=== PATIENT | male | born 1945 | race Caucasian/White ===

== ENCOUNTER 2016-09-16 13:18 | Emergency (ER) | payer MEDICARE, MEDICAID ==
[~2016-09-16] VITALS: Ht 172.7 cm; Wt 91.0 kg
[~2016-09-16 13:18] MED LIST: ASPI-1158 PO; ATOR20TA65 PO; CLON0.1T PO; COR12 PO; DIPH25CA83 PO; FISH1CAP65 PO; GLIP10TA10 PO; INSLAN SQ; LISI40TA4 PO; OMEP20CA10 PO; TERA5CAP4
[2016-09-16] MEDS ORDERED: IBUPROFEN 600MG TABLET PO ONE (14:45)
[2016-09-16 15:22] LABS: HEMOGLOBIN. 12.5 g/dL (14.0-18.0); MEAN CORPUSCULAR HEMOGLOBIN 33.4 pg (28.0-32.0); MEAN CORPUSCULAR VOLUME 101.5 fL (80.0-94.0); MEAN PLATELET VOLUME 9.1 fl (7.4-10.4); PLATELET 137 x1000/uL (130-400); RED BLOOD CELL COUNT 3.74 mill/uL (4.7-6.1); RED CELL DISTRIBUTION WIDTH 17.5 % (11.6-14.6)
[2016-09-16 15:26] LABS: INR 1.1; PROTHROMBIN TIME 11.6 sec
[2016-09-16 15:34] LABS: CARBON DIOXIDE 34 mEq/L (21-32); CHLORIDE 98 mEq/L (98-107)
[2016-09-16 16:32] VITALS: BP 160/80
[2016-09-16 16:56] LABS: ATYPICAL LYMPHOCYTES 4
[2016-09-16 19:44] LABS: PLATELET ESTIMATE NORMAL
== END 2016-09-16 17:34 | disposition home or self-care (01) ==
LOC: ER 14:28
DX: M25.562 Pain in left knee (principal); I12.0 Hypertensive chronic kidney disease with stage 5 chronic kidney disease or end stage renal disease; E11.22 Type 2 diabetes mellitus with diabetic chronic kidney disease; N18.6 End stage renal disease; E78.00 Pure hypercholesterolemia, unspecified; Z99.2 Dependence on renal dialysis; Z79.82 Long term (current) use of aspirin; Z79.4 Long term (current) use of insulin
CPT/HCPCS: 36415; 73562; 80053; 85025; 85610; 93971; 99285

== ENCOUNTER 2016-10-07 06:36 | Inpatient (IN) | payer MEDICARE, MEDICAID ==
[~2016-10-07] VITALS: Ht 170.2 cm; Wt 86.2 kg
[2016-10-07] MEDS ORDERED: HYDRALAZINE 20MG/ML VIAL IV ONE (07:00)
[2016-10-07] MEDS ORDERED: ALBUTEROL (0.083%) 2.5MG/3ML NEB HHN STA (07:00)
[2016-10-07 07:11] LABS: BASOPHILS % 0.2 % (0.0-2.0); EOSINOPHILS % 0.2 % (0.0-5.0); HEMATOCRIT. 34.4 % (42.0-52.0); HEMOGLOBIN. 11.6 g/dL (14.0-18.0); LYMPHOCYTES % 9.9 % (20.0-50.0); MEAN CORPUSCULAR HEMOGLOBIN 33.5 pg (28.0-32.0); MEAN PLATELET VOLUME 8.8 fl (7.4-10.4); MONOCYTES % 4.6 % (2.0-8.0); NEUTROPHILS % 85.1 % (40.0-76.0); PLATELET 141 x1000/uL (130-400); RED BLOOD CELL COUNT 3.48 mill/uL (4.7-6.1); RED CELL DISTRIBUTION WIDTH 16.2 % (11.6-14.6)
[2016-10-07 07:20] LABS: PARTIAL THROMBOPLASTIN TIME 29.4 sec (24.0-34.0); PROTHROMBIN TIME 10.9 sec
[2016-10-07 07:28] LABS: CARBON DIOXIDE 27 mEq/L (21-32); CHLORIDE 96 mEq/L (98-107); PHOSPHORUS 5.7 mg/dL (2.5-4.9); TROPONIN I 0.03 ng/mL (0.00-0.04)
[2016-10-07] MEDS ORDERED: LEVOFLOXACIN 500MG PREMIX 100 ML IV ONE (07:45)
[2016-10-07] MEDS ORDERED: VANCOMYCIN 1 G PREMIX 200 ML IV SCH (07:45)
[2016-10-07 07:54] LABS: BG BASE EXCESS -1.5 mmol/L (-2.0-2.0); BG CARBOXYHEMOGLOBIN 0.5 % (0.5-1.5); BG DEOXYHEMOGLOBIN 5.2 % (0.0-5.0); BG FRACTION INSPIRED OXYGEN 28; BG HCO3 ACT 25.7 mmol/L (22.0-26.0); BG METHEMOGLOBIN 0.3 % (0.0-1.5); BG OXYGEN SATURATION 94.8 % (92.0-98.5); BG PCO2 54.5 mmHg (35.0-45.0); BG PH 7.292 (7.350-7.450); BG PO2 85.2 mmHg (75.0-100.0); BG SAMPLE SITE RIGHT BRACHIAL; BG TOTAL HEMOGLOBIN 12.6 g/dL (12.0-18.0); BG VENT MODE NASAL CANNULA
[2016-10-07] MEDS ORDERED: ALBUTEROL (0.083%) 2.5MG/3ML NEB ONE (07:56)
[2016-10-07] MEDS ORDERED: CALCIUM CHLORIDE 1GM/10ML SYR IV ONE (08:30)
[2016-10-07] MEDS ORDERED: DEXTROSE 50% WATER 50ML SYRINGE IV ONE (08:30)
[2016-10-07] MEDS ORDERED: SODIUM BICARBONATE 8.4% 1 MEQ/ML 50ML SYR IV ONE (08:30)
[2016-10-07] MEDS ORDERED: INSULIN REGULAR (HUMULIN R) 300UNITS/3ML IV ONE (08:30)
[2016-10-07] MEDS: BLOOD SUGAR DIAGNOSTIC STRIP TEST SCH ×3 (12:40→21:55)
[2016-10-07] MEDS ORDERED: IPRATROPIUM/ALBUTEROL 0.5-3(2.5)MG/3ML NEB HHN PRN (13:30)
[2016-10-07] MEDS: OMEPRAZOLE 20MG CAPSULE EXTENDED RELEASE PO SCH (14:37)
[2016-10-07] MEDS: ASPIRIN 81MG EC TABLET PO SCH (14:37)
[2016-10-07] MEDS: DIPHENHYDRAMINE 25MG CAPSULE PO SCH (14:37)
[2016-10-07] MEDS: CLONIDINE 0.1MG TABLET PO SCH (14:37)
[2016-10-07] MEDS: LISINOPRIL 40MG TABLET PO SCH (14:37)
[2016-10-07] MEDS ORDERED: CEFEPIME 1,000 MG in DEXTROSE 5% WATER 50 ML IV NR (15:00)
[2016-10-07 17:23] VITALS: BP 155/78
[2016-10-07] MEDS: IPRATROPIUM/ALBUTEROL 0.5-3(2.5)MG/3ML NEB HHN SCH ×2 (17:30→19:47)
[2016-10-07 18:10] VITALS: BP 135/71
[2016-10-07] MEDS: GLIPIZIDE 10MG TABLET PO SCH (19:27)
[2016-10-07] MEDS: INSULIN LISPRO 100 UNITS/ML SUBCUT SCH ×2 (19:28→21:00)
[2016-10-07] MEDS ORDERED: ONDANSETRON HCL 4MG/2ML VIAL IV PRN (19:45)
[2016-10-07 20:00] VITALS: BP 155/83
[2016-10-07] MEDS: CARVEDILOL 12.5MG TABLET PO SCH (21:00)
[2016-10-07] MEDS: ATORVASTATIN CALCIUM 20MG TABLET PO SCH (22:35)
[2016-10-08] VITALS: BP 111/48
[2016-10-08] MEDS: BUDESONIDE 0.5MG/2ML NEB HHN SCH ×2 (01:32→12:31)
[2016-10-08] MEDS: IPRATROPIUM/ALBUTEROL 0.5-3(2.5)MG/3ML NEB HHN SCH ×3 (01:33→12:31)
[2016-10-08 04:00] VITALS: BP 113/59
[2016-10-08] MEDS: INSULIN LISPRO 100 UNITS/ML SUBCUT SCH ×4 (06:29→21:49)
[2016-10-08] MEDS: BLOOD SUGAR DIAGNOSTIC STRIP TEST SCH ×4 (06:29→21:49)
[2016-10-08 08:00] VITALS: BP 138/78
[2016-10-08] MEDS: GLIPIZIDE 10MG TABLET PO SCH ×2 (08:54→18:03)
[2016-10-08] MEDS: DIPHENHYDRAMINE 25MG CAPSULE PO SCH (08:54)
[2016-10-08] MEDS: ASPIRIN 81MG EC TABLET PO SCH (08:54)
[2016-10-08] MEDS: OMEPRAZOLE 20MG CAPSULE EXTENDED RELEASE PO SCH (08:54)
[2016-10-08] MEDS: CARVEDILOL 12.5MG TABLET PO SCH ×2 (08:54→21:00)
[2016-10-08] MEDS: CLONIDINE 0.1MG TABLET PO SCH (08:55)
[2016-10-08] MEDS: LISINOPRIL 40MG TABLET PO SCH (08:56)
[2016-10-08 12:00] VITALS: BP 136/76
[2016-10-08 12:36] LABS: T4 FREE 0.96 ng/dL (0.76-1.46)
[2016-10-08] MEDS ORDERED: CEFEPIME 500 MG in DEXTROSE 5% WATER 50 ML IV SCH (15:00)
[2016-10-08 16:00] VITALS: BP 120/61
[2016-10-08 20:00] VITALS: BP 139/65
[2016-10-08] MEDS: ATORVASTATIN CALCIUM 20MG TABLET PO SCH (21:00)
[2016-10-09] VITALS: BP 140/65
[2016-10-09] MEDS: IPRATROPIUM/ALBUTEROL 0.5-3(2.5)MG/3ML NEB HHN SCH ×2 (00:26→09:00)
[2016-10-09 04:00] VITALS: BP 151/77
[2016-10-09] MEDS: INSULIN LISPRO 100 UNITS/ML SUBCUT SCH ×2 (07:32→12:59)
[2016-10-09] MEDS: BLOOD SUGAR DIAGNOSTIC STRIP TEST SCH ×2 (07:32→12:59)
[2016-10-09 08:00] VITALS: BP 145/81
[2016-10-09] MEDS: GLIPIZIDE 10MG TABLET PO SCH (08:26)
[2016-10-09] MEDS: LISINOPRIL 40MG TABLET PO SCH (08:27)
[2016-10-09] MEDS: CARVEDILOL 12.5MG TABLET PO SCH (08:27)
[2016-10-09] MEDS: DIPHENHYDRAMINE 25MG CAPSULE PO SCH (08:27)
[2016-10-09] MEDS: CLONIDINE 0.1MG TABLET PO SCH (08:27)
[2016-10-09] MEDS: ASPIRIN 81MG EC TABLET PO SCH (08:27)
[2016-10-09] MEDS ORDERED: FAMOTIDINE 20MG TABLET PO SCH (09:00)
[2016-10-09 12:00] VITALS: BP 142/80
[2016-10-09 13:48] VITALS: BP 142/80
== END 2016-10-09 14:30 | disposition home or self-care (01) | DRG 871 ==
LOC: ER 06:58 → 7WST 07:59 → EDBEDREQ 08:09 → CANRESERV 10:29 → ENRESERV 10:29
PROVIDERS: ADMIT Internal Medicine Nephrology; ATTEND Internal Medicine Nephrology
PROC: 5A1D60Z (ICD-10-PCS; principal; 2016-10-07)
DX: A41.9 Sepsis, unspecified organism (principal); N18.6 End stage renal disease; J96.00 Acute respiratory failure, unspecified whether with hypoxia or hypercapnia; J18.9 Pneumonia, unspecified organism; I50.33 Acute on chronic diastolic (congestive) heart failure; I13.2 Hypertensive heart and chronic kidney disease with heart failure and with stage 5 chronic kidney disease, or end stage renal disease; J44.0 Chronic obstructive pulmonary disease with (acute) lower respiratory infection; J44.1 Chronic obstructive pulmonary disease with (acute) exacerbation; N17.9 Acute kidney failure, unspecified; I73.9 Peripheral vascular disease, unspecified; D64.9 Anemia, unspecified; W19.XXXA Unspecified fall, initial encounter; M54.2 Cervicalgia; R26.9 Unspecified abnormalities of gait and mobility; E11.22 Type 2 diabetes mellitus with diabetic chronic kidney disease; E11.42 Type 2 diabetes mellitus with diabetic polyneuropathy; E78.00 Pure hypercholesterolemia, unspecified; M43.16 Spondylolisthesis, lumbar region; M48.06 Spinal stenosis, lumbar region; Z99.2 Dependence on renal dialysis; Z68.29 Body mass index [BMI] 29.0-29.9, adult; Y92.009 Unspecified place in unspecified non-institutional (private) residence as the place of occurrence of the external cause; Z79.82 Long term (current) use of aspirin; Z79.4 Long term (current) use of insulin; Z79.899 Other long term (current) drug therapy
CPT/HCPCS: 36415; 36600; 70551; 71010; 72141; 72146; 72148; 80053; 82375; 82607; 82746; 82805; 82962; 83036; 83605; 83690; 83735; 84100; 84439; 84443; 84481; 84484; 85025; 85610; 85730; 87040; 93005; 94640; 94644; 96365; 96366; 96367; 96375; 97116; 97162; 97166; 99291; J0360; J0692; J1815; J1956; J3370; J3490; J7030; J7050; J7060; J7611; J7620; J7626; Q0163

== ENCOUNTER → 2017-02-08 | Outpatient (CLI) | payer MEDICARE, MEDICAID | END | disposition home or self-care (01) | LOC: RAD 10:52 | PROVIDERS: ATTEND Internal Medicine Nephrology | DX: M25.562 Pain in left knee (principal) | CPT/HCPCS: 73560; 73590 ==

== ENCOUNTER 2017-02-10 18:57 | Inpatient (IN) | payer MEDICARE, MEDICAID ==
[~2017-02-10] VITALS: Ht 175.3 cm; Wt 92.1 kg
[2017-02-10] MEDS ORDERED: ONDANSETRON HCL 4MG/2ML VIAL IV STA (20:15)
[2017-02-10] MEDS ORDERED: MORPHINE SULFATE 4 MG/ML CPJ (NOT FOR IM USE) IV STA (20:15)
[2017-02-10] MEDS ORDERED: MORPHINE SULFATE 10 MG/ML CPJ IV NR (20:45)
[2017-02-10 20:55] LABS: HEMATOCRIT. 34.3 % (42.0-52.0); HEMOGLOBIN. 11.2 g/dL (14.0-18.0); MEAN CORPUSCULAR VOLUME 104.5 fL (80.0-94.0); MEAN PLATELET VOLUME 9.1 fl (7.4-10.4); PLATELET 151 x1000/uL (130-400); RED BLOOD CELL COUNT 3.28 mill/uL (4.7-6.1); RED CELL DISTRIBUTION WIDTH 15.4 % (11.6-14.6)
[2017-02-10 21:01] LABS: INR 1.1; PROTHROMBIN TIME 11.2 sec (9.4-11.6)
[2017-02-10 21:08] LABS: PLATELET ESTIMATE NORMAL
[2017-02-10 21:12] LABS: CARBON DIOXIDE 28 mEq/L (21-32); CHLORIDE 97 mEq/L (98-107); ETHANOL BLOOD < 10 mg/dL; TROPONIN I < 0.02 ng/mL (0.00-0.04)
[2017-02-10] MEDS ORDERED: SODIUM CHLORIDE 0.9% 500 ML IV SCH (22:31)
[2017-02-10] MEDS ORDERED: LEVOFLOXACIN 750MG PREMIX 150 ML IV SCH (22:39)
[2017-02-10] MEDS ORDERED: INSULIN REGULAR (HUMULIN R) 300UNITS/3ML IV SCH (22:45)
[2017-02-10] MEDS ORDERED: SODIUM POLYSTYRENE SULFONATE 15 G/60 ML BOT PO SCH (22:45)
[2017-02-10] MEDS ORDERED: SODIUM BICARBONATE 8.4% 1 MEQ/ML 50ML SYR IV SCH (22:45)
[2017-02-10] MEDS ORDERED: CALCIUM CHLORIDE 1GM/10ML SYR IV SCH (22:45)
[2017-02-10] MEDS ORDERED: MORPHINE SULFATE 2 MG/ML CPJ (NOT FOR IM USE) IV PRN (23:15)
[2017-02-10 23:45] LABS: HEMATOCRIT. 32.2 % (42.0-52.0); HEMOGLOBIN. 10.3 g/dL (14.0-18.0); MEAN CORPUSCULAR HEMOGLOBIN 33.4 pg (28.0-32.0); MEAN CORPUSCULAR VOLUME 104.6 fL (80.0-94.0); PLATELET 146 x1000/uL (130-400); RED BLOOD CELL COUNT 3.08 mill/uL (4.7-6.1); RED CELL DISTRIBUTION WIDTH 15.3 % (11.6-14.6)
[2017-02-11] VITALS (9 sets, daily range): BP systolic 104–131; BP diastolic 42–72
[2017-02-11 01:33] LABS: PLATELET ESTIMATE NORMAL
[2017-02-11 07:09] LABS: HEMATOCRIT 27.2 % (42.0-52.0); HEMOGLOBIN 8.9 g/dL (14.0-18.0); MEAN CORPUSCULAR HEMOGLOBIN 33.9 pg (28.0-32.0); MEAN CORPUSCULAR VOLUME 103.5 fL (80.0-94.0); PLATELET 130 x1000/uL (130-400); RED BLOOD CELL COUNT 2.63 mill/uL (4.7-6.1); RED CELL DISTRIBUTION WIDTH 14.9 % (11.6-14.6)
[2017-02-11] MEDS ORDERED: GUAIFENESIN 200MG/10ML SUGAR FREE UDC PO PRN (14:15)
[2017-02-11] MEDS ORDERED: CLONIDINE 0.1MG TABLET PO PRN (14:15)
[2017-02-11] MEDS ORDERED: MAGNESIUM/ALUMINUM HYDROXIDE/SIMETHICONE 30ML UDC PO PRN (14:15)
[2017-02-11] MEDS ORDERED: ONDANSETRON HCL 4MG/2ML VIAL IV PRN (14:15)
[2017-02-11] MEDS ORDERED: HYDROMORPHONE HCL/PF 2MG/ML CPJ IV PRN (14:15)
[2017-02-11] MEDS ORDERED: ACETAMINOPHEN 325MG TABLET PO PRN (14:15)
[2017-02-11] MEDS ORDERED: HYDROCODONE/ACETAMINOPHEN 5/325MG TABLET PO PRN (14:15)
[2017-02-11] MEDS: ATORVASTATIN CALCIUM 20MG TABLET PO SCH (21:01)
[2017-02-11] MEDS: CARVEDILOL 12.5MG TABLET PO SCH (21:01)
[2017-02-11 21:23] LABS: BASOPHILS % 0.2 % (0.0-2.0); EOSINOPHILS % 0.6 % (0.0-5.0); HEMATOCRIT. 23.3 % (42.0-52.0); HEMOGLOBIN. 7.6 g/dL (14.0-18.0); LYMPHOCYTES % 23.4 % (20.0-50.0); MEAN CORPUSCULAR HEMOGLOBIN 34.2 pg (28.0-32.0); MEAN CORPUSCULAR VOLUME 104.4 fL (80.0-94.0); MEAN PLATELET VOLUME 8.6 fl (7.4-10.4); MONOCYTES % 11.4 % (2.0-8.0); NEUTROPHILS % 64.4 % (40.0-76.0); PLATELET 129 x1000/uL (130-400); RED BLOOD CELL COUNT 2.24 mill/uL (4.7-6.1); RED CELL DISTRIBUTION WIDTH 15.4 % (11.6-14.6)
[2017-02-12] VITALS (13 sets, daily range): BP systolic 114–148; BP diastolic 55–85
[2017-02-12 08:04] LABS: BASOPHILS % 0.2 % (0.0-2.0); EOSINOPHILS % 1.2 % (0.0-5.0); HEMATOCRIT. 22.2 % (42.0-52.0); HEMOGLOBIN. 7.3 g/dL (14.0-18.0); LYMPHOCYTES % 25.3 % (20.0-50.0); MEAN CORPUSCULAR HEMOGLOBIN 34.2 pg (28.0-32.0); MEAN CORPUSCULAR VOLUME 103.7 fL (80.0-94.0); MONOCYTES % 10.7 % (2.0-8.0); NEUTROPHILS % 62.6 % (40.0-76.0); PLATELET 123 x1000/uL (130-400); RED BLOOD CELL COUNT 2.14 mill/uL (4.7-6.1); RED CELL DISTRIBUTION WIDTH 15.1 % (11.6-14.6)
[2017-02-12 08:32] LABS: CARBON DIOXIDE 29 mEq/L (21-32); CHLORIDE 97 mEq/L (98-107)
[2017-02-12] MEDS: LISINOPRIL 40MG TABLET PO SCH (09:00)
[2017-02-12] MEDS: CLONIDINE 0.1MG TABLET PO SCH (09:00)
[2017-02-12] MEDS: CARVEDILOL 12.5MG TABLET PO SCH ×2 (09:00→20:19)
[2017-02-12] MEDS: GLIPIZIDE 10MG TABLET PO SCH ×2 (09:36→17:51)
[2017-02-12] MEDS: DIPHENHYDRAMINE 25MG CAPSULE PO SCH (09:36)
[2017-02-12 16:42] LABS: HEMATOCRIT 23.1 % (42.0-52.0); HEMOGLOBIN 7.6 g/dL (14.0-18.0); MEAN CORPUSCULAR HEMOGLOBIN 33.5 pg (28.0-32.0); MEAN CORPUSCULAR VOLUME 101.7 fL (80.0-94.0); PLATELET 132 x1000/uL (130-400); RED BLOOD CELL COUNT 2.27 mill/uL (4.7-6.1); RED CELL DISTRIBUTION WIDTH 14.9 % (11.6-14.6)
[2017-02-12] MEDS: ATORVASTATIN CALCIUM 20MG TABLET PO SCH (20:17)
[2017-02-12] MEDS ORDERED: DEXTROSE 50% WATER 50ML SYRINGE IV PRN (20:30)
[2017-02-12] MEDS: INSULIN LISPRO 100 UNITS/ML SUBCUT SCH (20:41)
[2017-02-12] MEDS: BLOOD SUGAR DIAGNOSTIC STRIP TEST SCH (20:41)
[2017-02-13] VITALS (12 sets, daily range): BP systolic 106–137; BP diastolic 41–70
[2017-02-13 00:39] LABS: HEMOGLOBIN 7.2 g/dL (14.0-18.0); MEAN CORPUSCULAR HEMOGLOBIN 33.6 pg (28.0-32.0); MEAN CORPUSCULAR VOLUME 102.4 fL (80.0-94.0); PLATELET 135 x1000/uL (130-400); RED BLOOD CELL COUNT 2.14 mill/uL (4.7-6.1); RED CELL DISTRIBUTION WIDTH 15.2 % (11.6-14.6)
[2017-02-13 07:08] LABS: BASOPHILS % 0.1 % (0.0-2.0); EOSINOPHILS % 0.8 % (0.0-5.0); MEAN CORPUSCULAR VOLUME 102.1 fL (80.0-94.0); MEAN PLATELET VOLUME 8.8 fl (7.4-10.4); MONOCYTES % 9.5 % (2.0-8.0); NEUTROPHILS % 66.6 % (40.0-76.0); PLATELET 139 x1000/uL (130-400); RED BLOOD CELL COUNT 2.35 mill/uL (4.7-6.1); RED CELL DISTRIBUTION WIDTH 15.2 % (11.6-14.6)
[2017-02-13] MEDS: BLOOD SUGAR DIAGNOSTIC STRIP TEST SCH ×6 (07:18→21:00)
[2017-02-13] MEDS: INSULIN LISPRO 100 UNITS/ML SUBCUT SCH ×4 (07:18→21:16)
[2017-02-13] MEDS: CARVEDILOL 12.5MG TABLET PO SCH ×2 (08:33→21:15)
[2017-02-13] MEDS: GLIPIZIDE 10MG TABLET PO SCH ×2 (08:33→16:06)
[2017-02-13] MEDS: LISINOPRIL 40MG TABLET PO SCH (08:34)
[2017-02-13] MEDS: CLONIDINE 0.1MG TABLET PO SCH (08:34)
[2017-02-13] MEDS: DIPHENHYDRAMINE 25MG CAPSULE PO SCH (08:34)
[2017-02-13] MEDS ORDERED: DEXTROSE 50% WATER 50ML SYRINGE IV PRN (14:30)
[2017-02-13] MEDS: ATORVASTATIN CALCIUM 20MG TABLET PO SCH (21:15)
[2017-02-14] VITALS (12 sets, daily range): BP systolic 100–134; BP diastolic 40–72
[2017-02-14 06:35] LABS: BASOPHILS % 0.3 % (0.0-2.0); EOSINOPHILS % 3.2 % (0.0-5.0); HEMOGLOBIN. 7.4 g/dL (14.0-18.0); LYMPHOCYTES % 30.1 % (20.0-50.0); MEAN CORPUSCULAR HEMOGLOBIN 34.3 pg (28.0-32.0); MEAN CORPUSCULAR VOLUME 102.6 fL (80.0-94.0); MEAN PLATELET VOLUME 8.7 fl (7.4-10.4); MONOCYTES % 10.8 % (2.0-8.0); NEUTROPHILS % 55.6 % (40.0-76.0); PLATELET 152 x1000/uL (130-400); RED BLOOD CELL COUNT 2.15 mill/uL (4.7-6.1); RED CELL DISTRIBUTION WIDTH 15.1 % (11.6-14.6)
[2017-02-14] MEDS: BLOOD SUGAR DIAGNOSTIC STRIP TEST SCH ×8 (06:50→21:00)
[2017-02-14] MEDS: INSULIN LISPRO 100 UNITS/ML SUBCUT SCH ×4 (07:13→21:39)
[2017-02-14] MEDS: LISINOPRIL 40MG TABLET PO SCH (08:00)
[2017-02-14] MEDS: DIPHENHYDRAMINE 25MG CAPSULE PO SCH (08:00)
[2017-02-14] MEDS: CLONIDINE 0.1MG TABLET PO SCH (08:01)
[2017-02-14] MEDS: GLIPIZIDE 10MG TABLET PO SCH ×2 (08:01→16:19)
[2017-02-14] MEDS: CARVEDILOL 12.5MG TABLET PO SCH ×2 (08:01→21:32)
[2017-02-14] MEDS: ATORVASTATIN CALCIUM 20MG TABLET PO SCH (21:31)
[2017-02-15] VITALS (10 sets, daily range): BP systolic 114–146; BP diastolic 47–72
[2017-02-15] MEDS: BLOOD SUGAR DIAGNOSTIC STRIP TEST SCH ×6 (06:50→16:50)
[2017-02-15] MEDS: INSULIN LISPRO 100 UNITS/ML SUBCUT SCH ×3 (07:15→16:32)
[2017-02-15] MEDS: DIPHENHYDRAMINE 25MG CAPSULE PO SCH (08:01)
[2017-02-15] MEDS: LISINOPRIL 40MG TABLET PO SCH (08:01)
[2017-02-15] MEDS: CLONIDINE 0.1MG TABLET PO SCH (08:01)
[2017-02-15] MEDS: GLIPIZIDE 10MG TABLET PO SCH ×2 (08:02→16:30)
[2017-02-15] MEDS: CARVEDILOL 12.5MG TABLET PO SCH (08:02)
[2017-02-15 14:35] LABS: BASOPHILS % 0.4 % (0.0-2.0); EOSINOPHILS % 3.9 % (0.0-5.0); HEMATOCRIT. 22.6 % (42.0-52.0); HEMOGLOBIN. 7.6 g/dL (14.0-18.0); LYMPHOCYTES % 22.8 % (20.0-50.0); MEAN CORPUSCULAR HEMOGLOBIN 34.4 pg (28.0-32.0); MEAN PLATELET VOLUME 8.7 fl (7.4-10.4); MONOCYTES % 6.2 % (2.0-8.0); NEUTROPHILS % 66.7 % (40.0-76.0); PLATELET 156 x1000/uL (130-400); RED BLOOD CELL COUNT 2.22 mill/uL (4.7-6.1); RED CELL DISTRIBUTION WIDTH 14.6 % (11.6-14.6)
== END 2017-02-15 17:25 | disposition home or self-care (01) | DRG 393 ==
LOC: ER 19:13 → EDBEDREQTM 22:40 → EDBEDREQ 22:40 → EDBEDREQTM 22:49 → EDBEDREQ 22:49 → ENRESERV 23:33 → CANRESERV 23:33 → 3WST 02-11 08:21 → EDBEDREQ 02-11 08:23 → EDBEDREQSVC 02-11 08:23 → ENRESERV 02-11 08:53
PROVIDERS: ADMIT Hospitalist; ATTEND Hospitalist
PROC: 5A1D70Z Performance of Urinary Filtration, Intermittent, Less than 6 Hours Per Day (ICD-10-PCS; principal; 2017-02-14)
DX: K66.1 Hemoperitoneum (principal); N18.6 End stage renal disease; E11.22 Type 2 diabetes mellitus with diabetic chronic kidney disease; I12.0 Hypertensive chronic kidney disease with stage 5 chronic kidney disease or end stage renal disease; D62 Acute posthemorrhagic anemia; N28.89 Other specified disorders of kidney and ureter; N28.1 Cyst of kidney, acquired; D63.8 Anemia in other chronic diseases classified elsewhere; E78.00 Pure hypercholesterolemia, unspecified; E78.5 Hyperlipidemia, unspecified; M48.061 Spinal stenosis, lumbar region without neurogenic claudication; Z79.4 Long term (current) use of insulin; Z86.73 Personal history of transient ischemic attack (TIA), and cerebral infarction without residual deficits; Z99.2 Dependence on renal dialysis; Z79.899 Other long term (current) drug therapy
CPT/HCPCS: 36415; 71010; 74176; 80048; 80053; 82962; 83605; 83690; 84484; 85025; 85027; 85610; 85730; 86850; 86900; 87040; 93005; 96365; 96375; 99291; G0482; J1815; J1956; J2270; J2405; J3490; J7030; J7040; Q0163

== ENCOUNTER → 2017-04-12 | Outpatient (CLI) | payer MEDICARE, MEDICAID | END | disposition home or self-care (01) | LOC: RAD 11:07 | PROVIDERS: ATTEND Orthopaedic Surgery | DX: M17.11 Unilateral primary osteoarthritis, right knee (principal); I70.0 Atherosclerosis of aorta | CPT/HCPCS: 73565 ==

== ENCOUNTER → 2017-05-03 | Outpatient (CLI) | payer MEDICARE, MEDICAID | END | disposition home or self-care (01) | LOC: MRI 09:18 | PROVIDERS: ATTEND Orthopaedic Surgery | DX: S83.242A Other tear of medial meniscus, current injury, left knee, initial encounter (principal); M81.0 Age-related osteoporosis without current pathological fracture; M94.262 Chondromalacia, left knee; X58.XXXA Exposure to other specified factors, initial encounter; Y93.89 Activity, other specified; Y92.89 Other specified places as the place of occurrence of the external cause; Y99.8 Other external cause status | CPT/HCPCS: 73721 ==

== ENCOUNTER → 2017-05-30 | Outpatient (CLI) | payer MEDICARE, MEDICAID | END | disposition home or self-care (01) | LOC: LAB 10:11 | PROVIDERS: ATTEND Urology | DX: R97.20 Elevated prostate specific antigen [PSA] (principal); E11.22 Type 2 diabetes mellitus with diabetic chronic kidney disease; N18.6 End stage renal disease | CPT/HCPCS: 36415; 80048 ==

== ENCOUNTER → 2018-01-20 | Outpatient (CLI) | payer MEDICARE, MEDICAID | END | disposition home or self-care (01) | LOC: RAD 13:15 | PROVIDERS: ATTEND Internal Medicine Nephrology | DX: J90 Pleural effusion, not elsewhere classified (principal) | CPT/HCPCS: 71046 ==

== ENCOUNTER 2018-01-26 23:56 | Inpatient (IN) | payer MEDICARE, MEDICAID ==
[~2018-01-26] VITALS: Ht 170.2 cm; Wt 92.8 kg
[2018-01-26 23:05] VITALS: BP 138/71
[2018-01-27] MEDS ORDERED: BISACODYL 10MG SUPP PR PRN (00:15)
[2018-01-27] MEDS ORDERED: CLONIDINE 0.1MG TABLET PO PRN (00:15)
[2018-01-27] MEDS ORDERED: DEXTROSE 50% WATER 50ML SYRINGE IV PRN (00:15)
[2018-01-27] MEDS ORDERED: ONDANSETRON HCL 4MG/2ML INJ IV PRN (00:15)
[2018-01-27] MEDS ORDERED: LACTULOSE 20G/30ML UDC PO PRN (00:15)
[2018-01-27] MEDS ORDERED: HYDRALAZINE 20MG/ML VIAL IV PRN (00:15)
[2018-01-27 04:00] VITALS: BP 114/41
[2018-01-27] MEDS: BLOOD SUGAR DIAGNOSTIC STRIP TEST SCH ×4 (05:57→21:00)
[2018-01-27] MEDS ORDERED: SODIUM CHLORIDE 0.9% INJ 3ML FLUSH IVF ONE (06:00)
[2018-01-27] MEDS: OMEPRAZOLE 20MG CAPSULE EXTENDED RELEASE PO SCH (06:32)
[2018-01-27 07:21] LABS: BASOPHILS % 0.5 % (0.0-2.0); EOSINOPHILS % 3.4 % (0.0-5.0); HEMATOCRIT. 27.5 % (42.0-52.0); HEMOGLOBIN. 9.4 g/dL (14.0-18.0); LYMPHOCYTES % 25.9 % (20.0-50.0); MEAN CORPUSCULAR HEMOGLOBIN 34.2 pg (28.0-32.0); MEAN CORPUSCULAR VOLUME 100.3 fL (80.0-94.0); MEAN PLATELET VOLUME 7.9 fl (7.4-10.4); MONOCYTES % 9.3 % (2.0-8.0); NEUTROPHILS % 60.9 % (40.0-76.0); PLATELET 227 x1000/uL (130-400); RED BLOOD CELL COUNT 2.74 mill/uL (4.7-6.1); RED CELL DISTRIBUTION WIDTH 13.3 % (11.6-14.6)
[2018-01-27] MEDS: INSULIN LISPRO 100 UNITS/ML SUBCUT SCH ×4 (07:50→21:46)
[2018-01-27 08:00] VITALS: BP 123/63
[2018-01-27] MEDS: TERAZOSIN HCL 5MG CAPSULE PO SCH (09:00)
[2018-01-27] MEDS: AMLODIPINE 5MG TABLET PO SCH (09:00)
[2018-01-27] MEDS: LOSARTAN POTASSIUM 100 MG TABLET PO SCH (09:00)
[2018-01-27] MEDS: FISH OIL/OMEGA-3 FATTY ACIDS 1000MG CAPSULE PO SCH ×2 (10:09→17:46)
[2018-01-27] MEDS: SEVELAMER CARBONATE 800 MG TABLET PO SCH ×3 (10:09→17:45)
[2018-01-27] MEDS: ENOXAPARIN 30MG/0.3ML SYR SUBCUT SCH (13:00)
[2018-01-27] MEDS ORDERED: CEFTRIAXONE 2 G PREMIX 50 ML IV SCH (14:00)
[2018-01-27] MEDS: AZITHROMYCIN 500 MG in DEXT 5% WATER 250 ML IV SCH ×2 (15:00→22:25)
[2018-01-27 16:00] VITALS: BP 133/51
[2018-01-27] MEDS: CEFTRIAXONE 2 G in DEXTROSE 5% WATER 50 ML IV SCH (16:22)
[2018-01-27 20:00] VITALS: BP 140/79
[2018-01-27] MEDS: ATORVASTATIN CALCIUM 20MG TABLET PO SCH (21:45)
[2018-01-28] VITALS: BP 141/63
[2018-01-28 05:14] VITALS: BP 139/60
[2018-01-28] MEDS: OMEPRAZOLE 20MG CAPSULE EXTENDED RELEASE PO SCH (07:15)
[2018-01-28] MEDS: BLOOD SUGAR DIAGNOSTIC STRIP TEST SCH ×4 (07:15→20:52)
[2018-01-28] MEDS: INSULIN LISPRO 100 UNITS/ML SUBCUT SCH ×4 (07:50→21:02)
[2018-01-28 08:00] VITALS: BP 135/52
[2018-01-28] MEDS: FISH OIL/OMEGA-3 FATTY ACIDS 1000MG CAPSULE PO SCH ×2 (09:47→17:58)
[2018-01-28] MEDS: SEVELAMER CARBONATE 800 MG TABLET PO SCH ×3 (09:48→17:58)
[2018-01-28] MEDS: LOSARTAN POTASSIUM 100 MG TABLET PO SCH (09:48)
[2018-01-28] MEDS: TERAZOSIN HCL 5MG CAPSULE PO SCH (09:48)
[2018-01-28] MEDS: AMLODIPINE 5MG TABLET PO SCH (09:48)
[2018-01-28 12:00] VITALS: BP 131/54
[2018-01-28] MEDS: CEFTRIAXONE 2 G in DEXTROSE 5% WATER 50 ML IV SCH (13:56)
[2018-01-28] MEDS: ENOXAPARIN 30MG/0.3ML SYR SUBCUT SCH (13:56)
[2018-01-28 16:00] VITALS: BP 135/57
[2018-01-28 20:00] VITALS: BP 156/83
[2018-01-28] MEDS: ACETAMINOPHEN 325MG TABLET PO PRN (20:48)
[2018-01-28] MEDS: ATORVASTATIN CALCIUM 20MG TABLET PO SCH (20:48)
[2018-01-28] MEDS: AZITHROMYCIN 500 MG in DEXT 5% WATER 250 ML IV SCH (21:26)
[2018-01-29] VITALS: BP 136/52
[2018-01-29 04:00] VITALS: BP 136/64
[2018-01-29] MEDS: OMEPRAZOLE 20MG CAPSULE EXTENDED RELEASE PO SCH (06:02)
[2018-01-29] MEDS: BLOOD SUGAR DIAGNOSTIC STRIP TEST SCH ×4 (06:30→20:11)
[2018-01-29] MEDS: INSULIN LISPRO 100 UNITS/ML SUBCUT SCH ×4 (07:50→20:18)
[2018-01-29 08:00] VITALS: BP 131/50
[2018-01-29 08:46] LABS: PHOSPHORUS 4.8 mg/dL (2.5-4.9)
[2018-01-29] MEDS: SEVELAMER CARBONATE 800 MG TABLET PO SCH ×3 (09:10→17:19)
[2018-01-29] MEDS: FISH OIL/OMEGA-3 FATTY ACIDS 1000MG CAPSULE PO SCH ×2 (09:10→17:19)
[2018-01-29] MEDS: LOSARTAN POTASSIUM 100 MG TABLET PO SCH (09:10)
[2018-01-29] MEDS: AMLODIPINE 5MG TABLET PO SCH (09:11)
[2018-01-29] MEDS: TERAZOSIN HCL 5MG CAPSULE PO SCH (09:11)
[2018-01-29] MEDS: ACETAMINOPHEN 325MG TABLET PO PRN (09:15)
[2018-01-29 11:59] LABS: BASOPHILS % 0.6 % (0.0-2.0); HEMATOCRIT. 28.5 % (42.0-52.0); HEMOGLOBIN. 9.6 g/dL (14.0-18.0); MEAN CORPUSCULAR HEMOGLOBIN 33.9 pg (28.0-32.0); MEAN CORPUSCULAR VOLUME 100.9 fL (80.0-94.0); MEAN PLATELET VOLUME 7.7 fl (7.4-10.4); MONOCYTES % 7.2 % (2.0-8.0); NEUTROPHILS % 65.2 % (40.0-76.0); PLATELET 244 x1000/uL (130-400); RED BLOOD CELL COUNT 2.83 mill/uL (4.7-6.1); RED CELL DISTRIBUTION WIDTH 13.6 % (11.6-14.6)
[2018-01-29 12:00] VITALS: BP 129/60
[2018-01-29] MEDS: CEFTRIAXONE 2 G in DEXTROSE 5% WATER 50 ML IV SCH (13:23)
[2018-01-29 16:00] VITALS: BP 107/71
[2018-01-29 20:00] VITALS: BP 156/78
[2018-01-29] MEDS: ATORVASTATIN CALCIUM 20MG TABLET PO SCH (20:15)
[2018-01-29] MEDS: AZITHROMYCIN 500 MG in DEXT 5% WATER 250 ML IV SCH (22:00)
[2018-01-30] VITALS (20 sets, daily range): BP systolic 1–254; BP diastolic 1–83
[2018-01-30] MEDS: AZITHROMYCIN 500 MG in DEXT 5% WATER 250 ML IV SCH (04:00)
[2018-01-30] MEDS: OMEPRAZOLE 20MG CAPSULE EXTENDED RELEASE PO SCH (06:31)
[2018-01-30] MEDS: BLOOD SUGAR DIAGNOSTIC STRIP TEST SCH ×5 (06:33→21:00)
[2018-01-30] MEDS: FISH OIL/OMEGA-3 FATTY ACIDS 1000MG CAPSULE PO SCH ×2 (07:50→18:06)
[2018-01-30] MEDS: SEVELAMER CARBONATE 800 MG TABLET PO SCH ×3 (07:50→18:06)
[2018-01-30] MEDS: INSULIN LISPRO 100 UNITS/ML SUBCUT SCH ×4 (07:50→21:00)
[2018-01-30 08:14] LABS: BASOPHILS % 0.7 % (0.0-2.0); EOSINOPHILS % 5.3 % (0.0-5.0); HEMATOCRIT. 26.1 % (42.0-52.0); HEMOGLOBIN. 8.8 g/dL (14.0-18.0); LYMPHOCYTES % 26.4 % (20.0-50.0); MEAN CORPUSCULAR HEMOGLOBIN 34.2 pg (28.0-32.0); MEAN CORPUSCULAR VOLUME 100.7 fL (80.0-94.0); MEAN PLATELET VOLUME 7.8 fl (7.4-10.4); MONOCYTES % 8.7 % (2.0-8.0); NEUTROPHILS % 58.9 % (40.0-76.0); PLATELET 219 x1000/uL (130-400); RED BLOOD CELL COUNT 2.59 mill/uL (4.7-6.1); RED CELL DISTRIBUTION WIDTH 13.3 % (11.6-14.6)
[2018-01-30] MEDS: LOSARTAN POTASSIUM 100 MG TABLET PO SCH (09:00)
[2018-01-30] MEDS: AMLODIPINE 5MG TABLET PO SCH (09:00)
[2018-01-30] MEDS: TERAZOSIN HCL 5MG CAPSULE PO SCH (09:00)
[2018-01-30] MEDS ORDERED: HYDRALAZINE 20MG/ML VIAL ONE (13:25)
[2018-01-30 13:36] LABS: INR 1.1; PARTIAL THROMBOPLASTIN TIME 29.6 sec (23.4-31.0); PROTHROMBIN TIME 11.3 sec (9.1-11.1)
[2018-01-30] MEDS ORDERED: FENTANYL CITRATE/PF 50MCG/ML 2ML VIAL ONE ×2 (14:13→16:36)
[2018-01-30] MEDS ORDERED: VECURONIUM BROMIDE 10 MG/VIAL IV ONE (14:13)
[2018-01-30] MEDS ORDERED: CEFAZOLIN SODIUM 1000MG/VIAL ONE (14:13)
[2018-01-30] MEDS ORDERED: ETOMIDATE 2MG/ML 10ML VIAL IV ONE ×2 (14:13→14:26)
[2018-01-30] MEDS ORDERED: MIDAZOLAM HCL 2 MG/2 ML VIAL ONE (14:13)
[2018-01-30] MEDS ORDERED: ONDANSETRON HCL 4MG/2ML INJ ONE ×2 (14:14→16:36)
[2018-01-30] MEDS ORDERED: SUCCINYLCHOLINE CHLORIDE 200MG/10ML IV ONE (14:14)
[2018-01-30] MEDS ORDERED: METOCLOPRAMIDE HCL 10MG/2ML VIAL ONE ×2 (14:14→16:36)
[2018-01-30] MEDS: CEFTRIAXONE 2 G in DEXTROSE 5% WATER 50 ML IV SCH (14:27)
[2018-01-30] MEDS ORDERED: GLYCOPYRROLATE 0.2 MG/ML 2ML VIAL ONE (16:35)
[2018-01-30] MEDS ORDERED: NEOSTIGMINE METHYLSULFATE 1MG/ML 10 ML VIAL ONE (16:35)
[2018-01-30] MEDS ORDERED: LIDOCAINE HCL/PF 2% 20MG/ML 5 ML/VIAL ONE (16:46)
[2018-01-30] MEDS ORDERED: BUPIVACAINE HCL 0.5% (5MG/ML) 50ML ONE (16:46)
[2018-01-30 18:20] LABS: HEMATOCRIT 27.9 % (42.0-52.0); HEMOGLOBIN 9.2 g/dL (14.0-18.0)
[2018-01-30] MEDS: MORPHINE SULFATE 4 MG/ML CPJ (NOT FOR IM USE) IV PRN (19:53)
[2018-01-30] MEDS: ATORVASTATIN CALCIUM 20MG TABLET PO SCH (21:00)
[2018-01-31] VITALS (32 sets, daily range): BP systolic 120–163; BP diastolic 35–81
[2018-01-31] MEDS: AZITHROMYCIN 500 MG in DEXT 5% WATER 250 ML IV SCH ×2 (04:11→04:21)
[2018-01-31 07:22] LABS: BASOPHILS % 0.3 % (0.0-2.0); EOSINOPHILS % 0.1 % (0.0-5.0); HEMOGLOBIN. 9.2 g/dL (14.0-18.0); LYMPHOCYTES % 7.3 % (20.0-50.0); MEAN CORPUSCULAR HEMOGLOBIN 34.1 pg (28.0-32.0); MEAN CORPUSCULAR VOLUME 100.3 fL (80.0-94.0); MEAN PLATELET VOLUME 8.6 fl (7.4-10.4); MONOCYTES % 6.6 % (2.0-8.0); NEUTROPHILS % 85.7 % (40.0-76.0); PLATELET 278 x1000/uL (130-400); RED BLOOD CELL COUNT 2.69 mill/uL (4.7-6.1); RED CELL DISTRIBUTION WIDTH 13.4 % (11.6-14.6)
[2018-01-31] MEDS: BLOOD SUGAR DIAGNOSTIC STRIP TEST SCH ×4 (07:50→21:15)
[2018-01-31] MEDS: MORPHINE SULFATE 4 MG/ML CPJ (NOT FOR IM USE) IV PRN (09:48)
[2018-01-31] MEDS: LOSARTAN POTASSIUM 100 MG TABLET PO SCH (10:42)
[2018-01-31] MEDS: TERAZOSIN HCL 5MG CAPSULE PO SCH (10:42)
[2018-01-31] MEDS: SEVELAMER CARBONATE 800 MG TABLET PO SCH ×3 (10:42→18:29)
[2018-01-31] MEDS: AMLODIPINE 5MG TABLET PO SCH (10:42)
[2018-01-31] MEDS: OMEPRAZOLE 20MG CAPSULE EXTENDED RELEASE PO SCH (10:46)
[2018-01-31] MEDS: INSULIN LISPRO 100 UNITS/ML SUBCUT SCH ×4 (10:54→21:21)
[2018-01-31] MEDS ORDERED: MORPHINE SULFATE 4 MG/ML CPJ (NOT FOR IM USE) IV PRN (12:15)
[2018-01-31] MEDS: FISH OIL/OMEGA-3 FATTY ACIDS 1000MG CAPSULE PO SCH ×2 (13:31→18:29)
[2018-01-31] MEDS: CEFTRIAXONE 2 G in DEXTROSE 5% WATER 50 ML IV SCH (14:49)
[2018-01-31] MEDS: HYDROCODONE/APAP 7.5/325MG 1 TAB TABLET PO PRN (18:52)
[2018-01-31] MEDS: ATORVASTATIN CALCIUM 20MG TABLET PO SCH (21:15)
[2018-02-01] VITALS (36 sets, daily range): BP systolic 98–156; BP diastolic 44–85
[2018-02-01] MEDS: AZITHROMYCIN 500 MG in DEXT 5% WATER 250 ML IV SCH (03:40)
[2018-02-01 06:20] LABS: BASOPHILS % 0.3 % (0.0-2.0); EOSINOPHILS % 0.6 % (0.0-5.0); HEMATOCRIT. 30.2 % (42.0-52.0); HEMOGLOBIN. 10.1 g/dL (14.0-18.0); LYMPHOCYTES % 10.7 % (20.0-50.0); MEAN CORPUSCULAR HEMOGLOBIN 33.6 pg (28.0-32.0); MEAN CORPUSCULAR VOLUME 100.2 fL (80.0-94.0); MEAN PLATELET VOLUME 8.1 fl (7.4-10.4); MONOCYTES % 6.5 % (2.0-8.0); NEUTROPHILS % 81.9 % (40.0-76.0); PLATELET 206 x1000/uL (130-400); RED BLOOD CELL COUNT 3.01 mill/uL (4.7-6.1); RED CELL DISTRIBUTION WIDTH 14.5 % (11.6-14.6)
[2018-02-01] MEDS: INSULIN LISPRO 100 UNITS/ML SUBCUT SCH ×3 (08:10→22:10)
[2018-02-01] MEDS: TERAZOSIN HCL 5MG CAPSULE PO SCH (08:10)
[2018-02-01] MEDS: BLOOD SUGAR DIAGNOSTIC STRIP TEST SCH ×3 (08:10→22:10)
[2018-02-01] MEDS: LOSARTAN POTASSIUM 100 MG TABLET PO SCH (08:10)
[2018-02-01] MEDS: AMLODIPINE 5MG TABLET PO SCH (08:11)
[2018-02-01] MEDS: SEVELAMER CARBONATE 800 MG TABLET PO SCH ×2 (08:27→13:11)
[2018-02-01] MEDS: FISH OIL/OMEGA-3 FATTY ACIDS 1000MG CAPSULE PO SCH (08:27)
[2018-02-01] MEDS: OMEPRAZOLE 20MG CAPSULE EXTENDED RELEASE PO SCH (08:27)
[2018-02-01] MEDS: HYDROCODONE/APAP 7.5/325MG 1 TAB TABLET PO PRN (08:27)
[2018-02-01] MEDS ORDERED: MORPHINE SULFATE 4 MG/ML CPJ (NOT FOR IM USE) IV PRN (10:00)
[2018-02-01] MEDS: CEFTRIAXONE 2 G in DEXTROSE 5% WATER 50 ML IV SCH (14:48)
[2018-02-01] MEDS: ATORVASTATIN CALCIUM 20MG TABLET PO SCH (22:10)
[2018-02-02] VITALS (22 sets, daily range): BP systolic 101–133; BP diastolic 52–76
[2018-02-02] MEDS: AZITHROMYCIN 500 MG in DEXT 5% WATER 250 ML IV SCH (04:27)
[2018-02-02] MEDS: OMEPRAZOLE 20MG CAPSULE EXTENDED RELEASE PO SCH (06:09)
[2018-02-02] MEDS: BLOOD SUGAR DIAGNOSTIC STRIP TEST SCH ×4 (06:09→20:58)
[2018-02-02] MEDS: INSULIN LISPRO 100 UNITS/ML SUBCUT SCH ×4 (07:37→20:58)
[2018-02-02] MEDS: FISH OIL/OMEGA-3 FATTY ACIDS 1000MG CAPSULE PO SCH ×2 (07:38→17:46)
[2018-02-02] MEDS: SEVELAMER CARBONATE 800 MG TABLET PO SCH ×3 (07:38→17:46)
[2018-02-02] MEDS: TERAZOSIN HCL 5MG CAPSULE PO SCH (09:32)
[2018-02-02] MEDS: LOSARTAN POTASSIUM 100 MG TABLET PO SCH (09:33)
[2018-02-02] MEDS: AMLODIPINE 5MG TABLET PO SCH (09:33)
[2018-02-02] MEDS: HYDROCODONE/APAP 7.5/325MG 1 TAB TABLET PO PRN ×2 (12:48→20:54)
[2018-02-02] MEDS: CEFTRIAXONE 2 G in DEXTROSE 5% WATER 50 ML IV SCH (14:06)
[2018-02-02] MEDS ORDERED: IPRATROPIUM/ALBUTEROL 0.5-3(2.5)MG/3ML NEB HHN PRN (14:45)
[2018-02-02] MEDS: ATORVASTATIN CALCIUM 20MG TABLET PO SCH (20:53)
[2018-02-03] VITALS (13 sets, daily range): BP systolic 90–145; BP diastolic 44–78
[2018-02-03] MEDS: AZITHROMYCIN 500 MG in DEXT 5% WATER 250 ML IV SCH (03:50)
[2018-02-03] MEDS: OMEPRAZOLE 20MG CAPSULE EXTENDED RELEASE PO SCH (06:51)
[2018-02-03] MEDS: BLOOD SUGAR DIAGNOSTIC STRIP TEST SCH ×4 (06:51→20:36)
[2018-02-03] MEDS: INSULIN LISPRO 100 UNITS/ML SUBCUT SCH ×4 (06:52→20:38)
[2018-02-03] MEDS: HYDROCODONE/APAP 7.5/325MG 1 TAB TABLET PO PRN ×2 (08:14→20:39)
[2018-02-03] MEDS: FISH OIL/OMEGA-3 FATTY ACIDS 1000MG CAPSULE PO SCH ×2 (08:15→17:27)
[2018-02-03] MEDS: SEVELAMER CARBONATE 800 MG TABLET PO SCH ×3 (08:15→17:27)
[2018-02-03] MEDS: LOSARTAN POTASSIUM 100 MG TABLET PO SCH (08:15)
[2018-02-03] MEDS: TERAZOSIN HCL 5MG CAPSULE PO SCH (08:16)
[2018-02-03] MEDS: AMLODIPINE 5MG TABLET PO SCH (09:00)
[2018-02-03 09:57] LABS: BASOPHILS % 0.3 % (0.0-2.0); EOSINOPHILS % 5.5 % (0.0-5.0); HEMATOCRIT. 26.7 % (42.0-52.0); HEMOGLOBIN. 8.9 g/dL (14.0-18.0); LYMPHOCYTES % 15.4 % (20.0-50.0); MEAN CORPUSCULAR HEMOGLOBIN 33.3 pg (28.0-32.0); MEAN CORPUSCULAR VOLUME 100.1 fL (80.0-94.0); MEAN PLATELET VOLUME 8.2 fl (7.4-10.4); MONOCYTES % 8.2 % (2.0-8.0); NEUTROPHILS % 70.6 % (40.0-76.0); PLATELET 194 x1000/uL (130-400); RED BLOOD CELL COUNT 2.67 mill/uL (4.7-6.1); RED CELL DISTRIBUTION WIDTH 14.1 % (11.6-14.6)
[2018-02-03] MEDS: CEFTRIAXONE 2 G in DEXTROSE 5% WATER 50 ML IV SCH (14:00)
[2018-02-03] MEDS: ATORVASTATIN CALCIUM 20MG TABLET PO SCH (20:37)
[2018-02-04] VITALS (13 sets, daily range): BP systolic 106–155; BP diastolic 52–86
[2018-02-04] MEDS: AZITHROMYCIN 500 MG in DEXT 5% WATER 250 ML IV SCH (03:54)
[2018-02-04 06:30] LABS: BASOPHILS % 0.4 % (0.0-2.0); HEMATOCRIT. 26.8 % (42.0-52.0); LYMPHOCYTES % 14.4 % (20.0-50.0); MEAN CORPUSCULAR HEMOGLOBIN 33.9 pg (28.0-32.0); MEAN CORPUSCULAR VOLUME 100.9 fL (80.0-94.0); MEAN PLATELET VOLUME 7.8 fl (7.4-10.4); MONOCYTES % 11.2 % (2.0-8.0); PLATELET 184 x1000/uL (130-400); RED BLOOD CELL COUNT 2.65 mill/uL (4.7-6.1); RED CELL DISTRIBUTION WIDTH 14.4 % (11.6-14.6)
[2018-02-04] MEDS: OMEPRAZOLE 20MG CAPSULE EXTENDED RELEASE PO SCH (06:35)
[2018-02-04] MEDS: BLOOD SUGAR DIAGNOSTIC STRIP TEST SCH ×4 (06:35→21:43)
[2018-02-04] MEDS: INSULIN LISPRO 100 UNITS/ML SUBCUT SCH ×4 (07:00→20:53)
[2018-02-04] MEDS: SEVELAMER CARBONATE 800 MG TABLET PO SCH ×3 (07:59→17:12)
[2018-02-04] MEDS: FISH OIL/OMEGA-3 FATTY ACIDS 1000MG CAPSULE PO SCH ×2 (07:59→17:12)
[2018-02-04] MEDS: TERAZOSIN HCL 5MG CAPSULE PO SCH (08:00)
[2018-02-04] MEDS: HYDROCODONE/APAP 7.5/325MG 1 TAB TABLET PO PRN ×2 (12:16→20:56)
[2018-02-04] MEDS: ATORVASTATIN CALCIUM 20MG TABLET PO SCH (21:43)
[2018-02-05] VITALS (11 sets, daily range): BP systolic 124–148; BP diastolic 56–87
[2018-02-05] MEDS: OMEPRAZOLE 20MG CAPSULE EXTENDED RELEASE PO SCH (05:46)
[2018-02-05] MEDS: BLOOD SUGAR DIAGNOSTIC STRIP TEST SCH ×4 (05:46→21:00)
[2018-02-05] MEDS: INSULIN LISPRO 100 UNITS/ML SUBCUT SCH ×4 (05:47→22:37)
[2018-02-05 06:09] LABS: BASOPHILS % 0.6 % (0.0-2.0); EOSINOPHILS % 4.7 % (0.0-5.0); HEMATOCRIT. 27.1 % (42.0-52.0); HEMOGLOBIN. 9.1 g/dL (14.0-18.0); LYMPHOCYTES % 21.7 % (20.0-50.0); MEAN CORPUSCULAR HEMOGLOBIN 33.9 pg (28.0-32.0); MEAN CORPUSCULAR VOLUME 101.2 fL (80.0-94.0); MEAN PLATELET VOLUME 8.1 fl (7.4-10.4); MONOCYTES % 10.1 % (2.0-8.0); NEUTROPHILS % 62.9 % (40.0-76.0); PLATELET 198 x1000/uL (130-400); RED BLOOD CELL COUNT 2.68 mill/uL (4.7-6.1)
[2018-02-05] MEDS ORDERED: AZITHROMYCIN 500 MG TABLET PO SCH (09:00)
[2018-02-05] MEDS: TERAZOSIN HCL 5MG CAPSULE PO SCH (09:40)
[2018-02-05] MEDS: FISH OIL/OMEGA-3 FATTY ACIDS 1000MG CAPSULE PO SCH ×2 (09:41→18:38)
[2018-02-05] MEDS: SEVELAMER CARBONATE 800 MG TABLET PO SCH ×3 (09:41→18:38)
[2018-02-05] MEDS: HYDROCODONE/APAP 7.5/325MG 1 TAB TABLET PO PRN ×2 (09:46→20:19)
[2018-02-05] MEDS ORDERED: LACTULOSE 20G/30ML UDC PO PRN (10:15)
[2018-02-05] MEDS: DOCUSATE SODIUM 250MG CAPSULE PO SCH (12:19)
[2018-02-05] MEDS: ATORVASTATIN CALCIUM 20MG TABLET PO SCH (20:18)
[2018-02-06] VITALS (12 sets, daily range): BP systolic 102–163; BP diastolic 54–89
[2018-02-06] MEDS: BLOOD SUGAR DIAGNOSTIC STRIP TEST SCH ×4 (06:13→21:01)
[2018-02-06] MEDS: OMEPRAZOLE 20MG CAPSULE EXTENDED RELEASE PO SCH (06:13)
[2018-02-06 06:16] LABS: BASOPHILS % 0.5 % (0.0-2.0); EOSINOPHILS % 5.3 % (0.0-5.0); HEMATOCRIT. 25.9 % (42.0-52.0); LYMPHOCYTES % 20.6 % (20.0-50.0); MEAN CORPUSCULAR HEMOGLOBIN 34.5 pg (28.0-32.0); MEAN CORPUSCULAR VOLUME 99.2 fL (80.0-94.0); MEAN PLATELET VOLUME 7.9 fl (7.4-10.4); MONOCYTES % 9.3 % (2.0-8.0); NEUTROPHILS % 64.3 % (40.0-76.0); PLATELET 201 x1000/uL (130-400); RED BLOOD CELL COUNT 2.61 mill/uL (4.7-6.1); RED CELL DISTRIBUTION WIDTH 14.1 % (11.6-14.6)
[2018-02-06] MEDS: INSULIN LISPRO 100 UNITS/ML SUBCUT SCH ×4 (07:20→21:00)
[2018-02-06] MEDS: DOCUSATE SODIUM 250MG CAPSULE PO SCH (08:31)
[2018-02-06] MEDS: FISH OIL/OMEGA-3 FATTY ACIDS 1000MG CAPSULE PO SCH ×2 (08:31→17:56)
[2018-02-06] MEDS: SEVELAMER CARBONATE 800 MG TABLET PO SCH ×3 (08:31→17:56)
[2018-02-06] MEDS: TERAZOSIN HCL 5MG CAPSULE PO SCH (08:31)
[2018-02-06] MEDS: HYDROCODONE/APAP 7.5/325MG 1 TAB TABLET PO PRN ×2 (13:51→21:01)
[2018-02-06] MEDS: ATORVASTATIN CALCIUM 20MG TABLET PO SCH (21:00)
[2018-02-07] VITALS (8 sets, daily range): BP systolic 144–161; BP diastolic 69–77
[2018-02-07] MEDS: OMEPRAZOLE 20MG CAPSULE EXTENDED RELEASE PO SCH (06:24)
[2018-02-07] MEDS: BLOOD SUGAR DIAGNOSTIC STRIP TEST SCH ×2 (06:24→11:10)
[2018-02-07] MEDS: INSULIN LISPRO 100 UNITS/ML SUBCUT SCH ×2 (07:20→12:06)
[2018-02-07 07:41] LABS: BASOPHILS % 0.4 % (0.0-2.0); EOSINOPHILS % 4.4 % (0.0-5.0); HEMATOCRIT. 25.9 % (42.0-52.0); HEMOGLOBIN. 8.8 g/dL (14.0-18.0); LYMPHOCYTES % 19.9 % (20.0-50.0); MEAN CORPUSCULAR HEMOGLOBIN 33.8 pg (28.0-32.0); MEAN CORPUSCULAR VOLUME 99.2 fL (80.0-94.0); MEAN PLATELET VOLUME 8.1 fl (7.4-10.4); MONOCYTES % 9.7 % (2.0-8.0); NEUTROPHILS % 65.6 % (40.0-76.0); PLATELET 195 x1000/uL (130-400); RED BLOOD CELL COUNT 2.61 mill/uL (4.7-6.1); RED CELL DISTRIBUTION WIDTH 14.1 % (11.6-14.6)
[2018-02-07] MEDS: DOCUSATE SODIUM 250MG CAPSULE PO SCH (08:33)
[2018-02-07] MEDS: SEVELAMER CARBONATE 800 MG TABLET PO SCH ×2 (08:34→12:03)
[2018-02-07] MEDS: FISH OIL/OMEGA-3 FATTY ACIDS 1000MG CAPSULE PO SCH (08:34)
[2018-02-07] MEDS: TERAZOSIN HCL 5MG CAPSULE PO SCH (08:34)
== END 2018-02-07 13:52 | disposition home health service (06) | DRG 163 ==
LOC: 6WST 23:56 → CVICU 01-30 17:50 → 3WST 02-01 17:20
PROVIDERS: ADMIT Internal Medicine Nephrology; ATTEND Internal Medicine Nephrology
PROC: 0BCG8ZZ Extirpation of Matter from Left Upper Lung Lobe, Via Natural or Artificial Opening Endoscopic (ICD-10-PCS; 2018-01-30)
PROC: 0W9B40Z Drainage of Left Pleural Cavity with Drainage Device, Percutaneous Endoscopic Approach (ICD-10-PCS; 2018-01-30)
PROC: 0BCJ4ZZ Extirpation of Matter from Left Lower Lung Lobe, Percutaneous Endoscopic Approach (ICD-10-PCS; 2018-01-30)
PROC: 0BBP4ZX Excision of Left Pleura, Percutaneous Endoscopic Approach, Diagnostic (ICD-10-PCS; 2018-01-30)
PROC: 3E0L4GC Introduction of Other Therapeutic Substance into Pleural Cavity, Percutaneous Endoscopic Approach (ICD-10-PCS; 2018-01-30)
PROC: 0B5P4ZZ Destruction of Left Pleura, Percutaneous Endoscopic Approach (ICD-10-PCS; principal; 2018-01-30 15:00)
PROC: 30233N1 Transfusion of Nonautologous Red Blood Cells into Peripheral Vein, Percutaneous Approach (ICD-10-PCS; 2018-01-31)
PROC: 5A1D70Z Performance of Urinary Filtration, Intermittent, Less than 6 Hours Per Day (ICD-10-PCS; 2018-02-03)
PROC: 5A1D70Z Performance of Urinary Filtration, Intermittent, Less than 6 Hours Per Day (ICD-10-PCS; 2018-02-06)
DX: J96.00 Acute respiratory failure, unspecified whether with hypoxia or hypercapnia (principal); N18.6 End stage renal disease; I12.0 Hypertensive chronic kidney disease with stage 5 chronic kidney disease or end stage renal disease; J44.1 Chronic obstructive pulmonary disease with (acute) exacerbation; J90 Pleural effusion, not elsewhere classified; G62.81 Critical illness polyneuropathy; E78.5 Hyperlipidemia, unspecified; C61 Malignant neoplasm of prostate; E11.36 Type 2 diabetes mellitus with diabetic cataract; E11.51 Type 2 diabetes mellitus with diabetic peripheral angiopathy without gangrene; E11.22 Type 2 diabetes mellitus with diabetic chronic kidney disease; E78.00 Pure hypercholesterolemia, unspecified; E87.5 Hyperkalemia; I25.10 Atherosclerotic heart disease of native coronary artery without angina pectoris; K21.9 Gastro-esophageal reflux disease without esophagitis; N40.0 Benign prostatic hyperplasia without lower urinary tract symptoms; G89.29 Other chronic pain; M19.90 Unspecified osteoarthritis, unspecified site; M54.5 Low back pain; R26.9 Unspecified abnormalities of gait and mobility; D63.8 Anemia in other chronic diseases classified elsewhere; I95.9 Hypotension, unspecified; Z79.4 Long term (current) use of insulin; Z99.2 Dependence on renal dialysis; Z86.73 Personal history of transient ischemic attack (TIA), and cerebral infarction without residual deficits; Z87.01 Personal history of pneumonia (recurrent); Z87.891 Personal history of nicotine dependence; Z95.5 Presence of coronary angioplasty implant and graft; Z79.82 Long term (current) use of aspirin; Z82.49 Family history of ischemic heart disease and other diseases of the circulatory system
CPT/HCPCS: 36415; 71045; 71250; 80048; 82962; 83735; 84075; 84100; 84153; 85014; 85018; 86850; 86900; 86920; 87070; 87075; 88108; 88305; 88312; 88331; 93005; 93306; 94002; 97116; 97162; 97164; 97166; A6261; J0330; J0360; J0456; J0690; J0696; J1650; J1815; J2250; J2270; J2405; J2710; J2765; J3010; J3490; J7030; J7040; J7050; J7060; P9016; G0103

== ENCOUNTER 2018-02-11 10:42 | Inpatient (IN) | payer MEDICARE, MEDICAID ==
[~2018-02-11] VITALS: Ht 170.2 cm; Wt 72.8 kg
[2018-02-11] MEDS ORDERED: NITROGLYCERIN OINT 1GM/INCH UDPKT TD ONE (11:30)
[2018-02-11] MEDS ORDERED: ASPIRIN 81MG TABLET PO ONE (11:30)
[2018-02-11 13:00] LABS: BASOPHILS % 0.4 % (0.0-2.0); EOSINOPHILS % 2.1 % (0.0-5.0); HEMATOCRIT. 26.7 % (42.0-52.0); MEAN CORPUSCULAR HEMOGLOBIN 33.6 pg (28.0-32.0); MEAN CORPUSCULAR VOLUME 99.9 fL (80.0-94.0); MEAN PLATELET VOLUME 8.6 fl (7.4-10.4); MONOCYTES % 7.9 % (2.0-8.0); NEUTROPHILS % 76.6 % (40.0-76.0); PLATELET 241 x1000/uL (130-400); RED BLOOD CELL COUNT 2.67 mill/uL (4.7-6.1); RED CELL DISTRIBUTION WIDTH 14.7 % (11.6-14.6)
[2018-02-11 13:06] LABS: CHLORIDE 94 mEq/L (98-107)
[2018-02-11 13:08] LABS: INR 1.1; PARTIAL THROMBOPLASTIN TIME 27.7 sec (23.4-31.0); PROTHROMBIN TIME 10.8 sec (9.1-11.1)
[2018-02-11] MEDS ORDERED: LEVOFLOXACIN 750MG PREMIX 150 ML IV ONE (13:15)
[2018-02-11] MEDS ORDERED: SODIUM POLYSTYRENE SULFONATE 15 G/60 ML BOT PO ONE (13:30)
[2018-02-11] MEDS ORDERED: ALBUTEROL (0.083%) 2.5MG/3ML NEB HHN ONE (13:30)
[2018-02-11] MEDS ORDERED: SODIUM BICARBONATE 8.4% 1 MEQ/ML 50ML SYR IV ONE (13:30)
[2018-02-11] MEDS ORDERED: MAGNESIUM/ALUMINUM HYDROXIDE/SIMETHICONE 30ML UDC PO PRN (14:30)
[2018-02-11] MEDS ORDERED: DOCUSATE SODIUM 100MG CAPSULE PO PRN (14:30)
[2018-02-11] MEDS ORDERED: GUAIFENESIN 200MG/10ML SUGAR FREE UDC PO PRN (14:30)
[2018-02-11] MEDS ORDERED: LORAZEPAM 2MG/ML CPJ IV PRN (14:30)
[2018-02-11] MEDS ORDERED: CLONIDINE 0.1MG TABLET PO PRN (14:30)
[2018-02-11] MEDS ORDERED: NA PHOS,M-B/NA PHOS,DI-BA ENEMA 118ML PR PRN (14:30)
[2018-02-11] MEDS ORDERED: IPRATROPIUM/ALBUTEROL 0.5-3(2.5)MG/3ML NEB INH PRN (14:30)
[2018-02-11] MEDS ORDERED: ONDANSETRON HCL 4MG/2ML INJ IV PRN (14:30)
[2018-02-11] MEDS ORDERED: ACETAMINOPHEN 325MG TABLET PO PRN (14:30)
[2018-02-11] MEDS ORDERED: DIPHENHYDRAMINE 50MG/ML VIAL IV PRN (14:30)
[2018-02-11] MEDS ORDERED: HYDROCODONE/ACETAMINOPHEN 5/325MG TABLET PO PRN (14:30)
[2018-02-11] MEDS ORDERED: MORPHINE SULFATE 4 MG/ML CPJ (NOT FOR IM USE) IV PRN (21:07)
[2018-02-11 22:04] VITALS: BP 173/72
[2018-02-12] VITALS: BP 145/72
[2018-02-12] MEDS ORDERED: DEXTROSE 50% WATER 50ML SYRINGE IV PRN (00:45)
[2018-02-12 04:00] VITALS: BP 136/75
[2018-02-12] MEDS: BLOOD SUGAR DIAGNOSTIC STRIP TEST SCH ×4 (06:22→21:53)
[2018-02-12 07:49] LABS: BASOPHILS % 0.4 % (0.0-2.0); EOSINOPHILS % 3.2 % (0.0-5.0); HEMATOCRIT. 22.9 % (42.0-52.0); HEMOGLOBIN. 7.8 g/dL (14.0-18.0); LYMPHOCYTES % 22.1 % (20.0-50.0); MEAN CORPUSCULAR HEMOGLOBIN 33.6 pg (28.0-32.0); MONOCYTES % 12.4 % (2.0-8.0); NEUTROPHILS % 61.9 % (40.0-76.0); PLATELET 225 x1000/uL (130-400); RED BLOOD CELL COUNT 2.31 mill/uL (4.7-6.1); RED CELL DISTRIBUTION WIDTH 14.5 % (11.6-14.6)
[2018-02-12 08:41] VITALS: BP 155/77
[2018-02-12] MEDS: ASPIRIN 81MG EC TABLET PO SCH (09:19)
[2018-02-12] MEDS: ENOXAPARIN 30MG/0.3ML SYR SUBCUT SCH (09:22)
[2018-02-12 12:15] LABS: CHLORIDE 95 mEq/L (98-107)
[2018-02-12 12:26] LABS: LDL CHOLESTEROL 23 mg/dL (5-100)
[2018-02-12 12:27] LABS: HDL CHOLESTEROL 39 mg/dL (40-59); T4 FREE 0.91 ng/dL (0.76-1.46)
[2018-02-12] MEDS: INSULIN LISPRO 100 UNITS/ML SUBCUT SCH ×3 (13:37→22:00)
[2018-02-12 14:00] VITALS: BP 168/70
[2018-02-12 16:00] LABS: HEMOGLOBIN 8.4 g/dL (14.0-18.0)
[2018-02-12 17:25] VITALS: BP 163/74
[2018-02-12 20:00] VITALS: BP 152/69
[2018-02-12 23:20] LABS: CLARITY URINE CLOUDY (CLEAR); COLOR URINE YELLOW (YELLOW); KETONES URINE NEGATIVE (NEGATIVE); LEUKOCYTE ESTERASE URINE 2+ (NEGATIVE); NITRITE URINE NEGATIVE (NEGATIVE); OCCULT BLOOD URINE 1+ (NEGATIVE); PH URINE 8.5 (4.5-8.0); PROTEIN URINE 2+ (NEGATIVE); SPECIFIC GRAVITY URINE 1.011 (1.005-1.030); UROBILINOGEN URINE 0.2 E.U./dL (0.2-1.0)
[2018-02-13] VITALS: BP 164/78
[2018-02-13 04:00] VITALS: BP 113/77
[2018-02-13] MEDS: BLOOD SUGAR DIAGNOSTIC STRIP TEST SCH ×4 (05:19→20:49)
[2018-02-13 07:04] LABS: BASOPHILS % 0.5 % (0.0-2.0); EOSINOPHILS % 3.4 % (0.0-5.0); HEMATOCRIT. 27.9 % (42.0-52.0); HEMOGLOBIN. 9.6 g/dL (14.0-18.0); LYMPHOCYTES % 17.2 % (20.0-50.0); MEAN CORPUSCULAR HEMOGLOBIN 33.6 pg (28.0-32.0); MEAN CORPUSCULAR VOLUME 97.9 fL (80.0-94.0); MONOCYTES % 12.6 % (2.0-8.0); NEUTROPHILS % 66.3 % (40.0-76.0); PLATELET 178 x1000/uL (130-400); RED BLOOD CELL COUNT 2.85 mill/uL (4.7-6.1); RED CELL DISTRIBUTION WIDTH 15.2 % (11.6-14.6)
[2018-02-13 08:00] VITALS: BP 129/49
[2018-02-13] MEDS: INSULIN LISPRO 100 UNITS/ML SUBCUT SCH ×4 (08:03→20:52)
[2018-02-13] MEDS: ASPIRIN 81MG EC TABLET PO SCH (09:06)
[2018-02-13] MEDS: ENOXAPARIN 30MG/0.3ML SYR SUBCUT SCH (09:06)
[2018-02-13 12:00] VITALS: BP 171/79
[2018-02-13 16:00] VITALS: BP 143/61
[2018-02-13 20:00] VITALS: BP 168/87
[2018-02-13 21:07] LABS: CREATINE KINASE MB FRACTION 2.1 ng/mL (0.5-3.6)
[2018-02-13 21:23] LABS: T4 FREE 0.94 ng/dL (0.76-1.46)
[2018-02-14] VITALS: BP 154/67
[2018-02-14 00:57] LABS: CREATINE KINASE 68 IU/L (39-308); CREATINE KINASE MB FRACTION 2.2 ng/mL (0.5-3.6)
[2018-02-14 04:00] VITALS: BP 157/81
[2018-02-14] MEDS: BLOOD SUGAR DIAGNOSTIC STRIP TEST SCH ×2 (06:50→12:40)
[2018-02-14 08:00] VITALS: BP 176/85
[2018-02-14] MEDS: INSULIN LISPRO 100 UNITS/ML SUBCUT SCH ×2 (08:10→13:10)
[2018-02-14] MEDS: ASPIRIN 81MG EC TABLET PO SCH (09:09)
[2018-02-14] MEDS: ENOXAPARIN 30MG/0.3ML SYR SUBCUT SCH (09:09)
[2018-02-14 12:00] VITALS: BP 170/88
[2018-02-14 13:36] LABS: BASOPHILS % 0.3 % (0.0-2.0); EOSINOPHILS % 2.3 % (0.0-5.0); HEMATOCRIT. 27.2 % (42.0-52.0); HEMOGLOBIN. 9.4 g/dL (14.0-18.0); LYMPHOCYTES % 18.4 % (20.0-50.0); MEAN CORPUSCULAR HEMOGLOBIN 33.9 pg (28.0-32.0); MEAN CORPUSCULAR VOLUME 98.3 fL (80.0-94.0); MEAN PLATELET VOLUME 8.1 fl (7.4-10.4); MONOCYTES % 6.3 % (2.0-8.0); NEUTROPHILS % 72.7 % (40.0-76.0); PLATELET 146 x1000/uL (130-400); RED BLOOD CELL COUNT 2.76 mill/uL (4.7-6.1); RED CELL DISTRIBUTION WIDTH 15.2 % (11.6-14.6)
[2018-02-14 15:19] VITALS: BP 170/88
[2018-02-14 15:48] LABS: CREATINE KINASE MB FRACTION 1.6 ng/mL (0.5-3.6)
== END 2018-02-14 16:20 | disposition home or self-care (01) | DRG 640 ==
LOC: ER 10:42 → 7WST 11:23 → EDBEDREQ 14:08 → ENRESERV 20:10
PROVIDERS: ADMIT Internal Medicine; ATTEND Internal Medicine
PROC: 5A1D70Z Performance of Urinary Filtration, Intermittent, Less than 6 Hours Per Day (ICD-10-PCS; 2018-02-11)
PROC: 30233N1 Transfusion of Nonautologous Red Blood Cells into Peripheral Vein, Percutaneous Approach (ICD-10-PCS; principal; 2018-02-12)
PROC: 5A1D70Z Performance of Urinary Filtration, Intermittent, Less than 6 Hours Per Day (ICD-10-PCS; 2018-02-14)
DX: E87.5 Hyperkalemia (principal); N18.6 End stage renal disease; E46 Unspecified protein-calorie malnutrition; I13.2 Hypertensive heart and chronic kidney disease with heart failure and with stage 5 chronic kidney disease, or end stage renal disease; R07.89 Other chest pain; E87.1 Hypo-osmolality and hyponatremia; I25.10 Atherosclerotic heart disease of native coronary artery without angina pectoris; E11.22 Type 2 diabetes mellitus with diabetic chronic kidney disease; E11.51 Type 2 diabetes mellitus with diabetic peripheral angiopathy without gangrene; C61 Malignant neoplasm of prostate; D64.9 Anemia, unspecified; E11.36 Type 2 diabetes mellitus with diabetic cataract; E78.00 Pure hypercholesterolemia, unspecified; E78.5 Hyperlipidemia, unspecified; I50.9 Heart failure, unspecified; Z79.4 Long term (current) use of insulin; Z82.49 Family history of ischemic heart disease and other diseases of the circulatory system; Z83.3 Family history of diabetes mellitus; Z85.46 Personal history of malignant neoplasm of prostate; Z86.73 Personal history of transient ischemic attack (TIA), and cerebral infarction without residual deficits; Z87.01 Personal history of pneumonia (recurrent); Z87.891 Personal history of nicotine dependence; Z99.2 Dependence on renal dialysis; Z79.899 Other long term (current) drug therapy; Z79.82 Long term (current) use of aspirin; Z68.25 Body mass index [BMI] 25.0-25.9, adult
CPT/HCPCS: 36415; 71045; 80048; 80061; 82550; 82553; 82962; 83036; 83605; 83880; 84439; 84443; 84484; 85014; 85018; 85379; 86850; 86900; 86920; 93005; 93970; 94644; 96365; 96366; 96375; 99285; J1650; J1815; J1956; J3490; J7030; J7611; P9016

== ENCOUNTER 2018-09-06 09:43 | Day surgery (SDC) | payer MEDICARE, MEDICAID ==
[~2018-09-06] VITALS: Ht 170.2 cm; Wt 88.7 kg
[~2018-09-06 09:43] MED LIST changes: +HEPARIN SODIUM 1,000 UNIT/1ML VIAL IV ONE; +NICARDIPINE 100MCG/ML 10ML VIAL (CATH LAB) IV ONE; +NITROGLYCERIN 50MCG/ML 10ML VIAL (CATH LAB) IV ONE; -OMEP20CA10 PO; +OMEP20CA5 PO
[2018-09-06] MEDS ORDERED: LIDOCAINE HCL 1% 20ML VIAL (Pyxis) INJ ONE (10:48)
[2018-09-06] MEDS ORDERED: IODIXANOL 320MG/ML 100 ML BOTTLE IV ONE ×2 (10:48→11:59)
[2018-09-06] MEDS ORDERED: FENTANYL CITRATE/PF 50MCG/ML 2ML VIAL ONE (11:17)
[2018-09-06] MEDS ORDERED: MIDAZOLAM HCL 2 MG/2 ML VIAL ONE (11:17)
[2018-09-06] MEDS ORDERED: ACETAMINOPHEN 325MG TABLET PO PRN (12:30)
[2018-09-06] MEDS ORDERED: ONDANSETRON HCL 4MG/2ML INJ IV PRN (12:30)
== END 2018-09-06 16:00 | disposition home or self-care (01) ==
LOC: CCL 09:43
PROVIDERS: ATTEND Specialist
DX: I25.10 Atherosclerotic heart disease of native coronary artery without angina pectoris (principal); I12.0 Hypertensive chronic kidney disease with stage 5 chronic kidney disease or end stage renal disease; N18.6 End stage renal disease; E11.22 Type 2 diabetes mellitus with diabetic chronic kidney disease; E78.5 Hyperlipidemia, unspecified; Z85.46 Personal history of malignant neoplasm of prostate; Z99.2 Dependence on renal dialysis; Z98.890 Other specified postprocedural states; Z79.82 Long term (current) use of aspirin; Z79.4 Long term (current) use of insulin; Z79.899 Other long term (current) drug therapy
CPT/HCPCS: 93458; 99152; 99153; C1769; C1887; C1893; J1644; J2250; J3010; J3490; Q9967; G0500

== ENCOUNTER → 2018-11-17 | Outpatient (CLI) | payer MEDICARE, MEDICAID ==
[~2018-11-17] MED LIST changes: -HEPARIN SODIUM 1,000 UNIT/1ML VIAL IV ONE; +IOHEXOL-350 100 ML BOTTLE ONE; -NICARDIPINE 100MCG/ML 10ML VIAL (CATH LAB) IV ONE; -NITROGLYCERIN 50MCG/ML 10ML VIAL (CATH LAB) IV ONE
== END | disposition home or self-care (01) ==
LOC: CT 08:37
PROVIDERS: ATTEND Internal Medicine Nephrology
DX: R91.8 Other nonspecific abnormal finding of lung field (principal); N20.0 Calculus of kidney; N28.1 Cyst of kidney, acquired; J90 Pleural effusion, not elsewhere classified
CPT/HCPCS: 71275; Q9967

== ENCOUNTER 2018-12-21 20:01 | Inpatient (IN) | payer MEDICARE, MEDICAID ==
[~2018-12-21] VITALS: Ht 170.2 cm; Wt 89.8 kg
[~2018-12-21 20:01] MED LIST changes: -IOHEXOL-350 100 ML BOTTLE ONE
[2018-12-21 20:25] VITALS: BP 138/65
[2018-12-21] MEDS ORDERED: ONDANSETRON HCL 4MG/2ML INJ IV PRN (22:00)
[2018-12-21] MEDS ORDERED: VANCOMYCIN 1 G PREMIX 200 ML IV SCH (22:00)
[2018-12-21] MEDS ORDERED: MORPHINE SULFATE 2 MG/ML CPJ (NOT FOR IM USE) IV PRN (22:00)
[2018-12-21] MEDS ORDERED: LORAZEPAM 2MG/ML CPJ IV PRN (22:00)
[2018-12-21] MEDS ORDERED: ACETAMINOPHEN 325MG TABLET PO PRN (22:00)
[2018-12-21] MEDS ORDERED: DEXTROSE 50% WATER 50ML SYRINGE IV PRN (23:15)
[2018-12-21] MEDS: THIAMINE HCL 100MG TABLET PO SCH (23:17)
[2018-12-21] MEDS: LISINOPRIL 10MG TABLET PO SCH (23:17)
[2018-12-22] VITALS: BP 132/49
[2018-12-22 01:20] LABS: BASOPHILS % 0.6 % (0.0-2.0); HEMATOCRIT. 30.6 % (42.0-52.0); HEMOGLOBIN. 10.2 g/dL (14.0-18.0); MEAN CORPUSCULAR HEMOGLOBIN 35.4 pg (28.0-32.0); MEAN CORPUSCULAR VOLUME 106.2 fL (80.0-94.0); MEAN PLATELET VOLUME 8.9 fl (7.4-10.4); MONOCYTES % 10.4 % (2.0-8.0); PLATELET 151 x1000/uL (130-400); RED BLOOD CELL COUNT 2.88 mill/uL (4.7-6.1); RED CELL DISTRIBUTION WIDTH 15.1 % (11.6-14.6)
[2018-12-22 04:00] VITALS: BP 149/46
[2018-12-22] MEDS ORDERED: VANCOMYCIN 1 G PREMIX 200 ML IV SCH (06:00)
[2018-12-22 08:00] VITALS: BP 158/54
[2018-12-22] MEDS: INSULIN LISPRO 100 UNITS/ML SUBCUT SCH ×4 (08:10→21:11)
[2018-12-22] MEDS: LISINOPRIL 10MG TABLET PO SCH (08:18)
[2018-12-22] MEDS: THIAMINE HCL 100MG TABLET PO SCH (08:18)
[2018-12-22] MEDS: ASPIRIN 81MG EC TABLET PO SCH (08:18)
[2018-12-22] MEDS: ENOXAPARIN 30MG/0.3ML SYR SUBCUT SCH (08:20)
[2018-12-22] MEDS: BLOOD SUGAR DIAGNOSTIC STRIP TEST SCH ×4 (08:21→21:03)
[2018-12-22 12:00] VITALS: BP 159/65
[2018-12-22] MEDS ORDERED: VANCOMYCIN 500 MG PREMIX 100 ML IV NR (12:00)
[2018-12-22] MEDS ORDERED: IOHEXOL-350 100 ML BOTTLE ONE (14:16)
[2018-12-22 16:00] VITALS: BP 129/85
[2018-12-22] MEDS: HYDROCODONE/APAP 7.5/325MG 1 TAB TABLET PO PRN (19:16)
[2018-12-22] MEDS ORDERED: POTASSIUM CHLORIDE 20MEQ TABLET SR PO NR (19:30)
[2018-12-22 20:00] VITALS: BP 116/80
[2018-12-23] VITALS: BP 157/61
[2018-12-23 04:00] VITALS: BP 147/54
[2018-12-23] MEDS: BLOOD SUGAR DIAGNOSTIC STRIP TEST SCH ×4 (07:40→21:13)
[2018-12-23 08:00] VITALS: BP 171/79
[2018-12-23] MEDS: INSULIN LISPRO 100 UNITS/ML SUBCUT SCH ×4 (08:10→21:00)
[2018-12-23] MEDS: CLONIDINE 0.1MG TABLET PO PRN (08:48)
[2018-12-23] MEDS: ASPIRIN 81MG EC TABLET PO SCH (08:48)
[2018-12-23] MEDS: THIAMINE HCL 100MG TABLET PO SCH (08:49)
[2018-12-23] MEDS: ENOXAPARIN 30MG/0.3ML SYR SUBCUT SCH (08:49)
[2018-12-23] MEDS: LISINOPRIL 10MG TABLET PO SCH (08:49)
[2018-12-23 12:00] VITALS: BP 141/57
[2018-12-23 16:00] VITALS: BP 139/50
[2018-12-23] MEDS: HYDROCODONE/APAP 7.5/325MG 1 TAB TABLET PO PRN (17:02)
[2018-12-23] MEDS ORDERED: VANCOMYCIN 1 G PREMIX 200 ML IV SCH (18:00)
[2018-12-23 20:00] VITALS: BP_SYST 131; BP_SYST 94; BP_DIAS 53; BP_DIAS 59
[2018-12-24] VITALS: BP 132/42
[2018-12-24 04:00] VITALS: BP 125/39
[2018-12-24 06:59] LABS: BASOPHILS % 0.4 % (0.0-2.0); EOSINOPHILS % 2.1 % (0.0-5.0); HEMATOCRIT. 30.1 % (42.0-52.0); HEMOGLOBIN. 10.1 g/dL (14.0-18.0); LYMPHOCYTES % 23.8 % (20.0-50.0); MEAN CORPUSCULAR HEMOGLOBIN 35.2 pg (28.0-32.0); MEAN CORPUSCULAR VOLUME 104.3 fL (80.0-94.0); MEAN PLATELET VOLUME 8.9 fl (7.4-10.4); MONOCYTES % 10.5 % (2.0-8.0); NEUTROPHILS % 63.2 % (40.0-76.0); PLATELET 124 x1000/uL (130-400); RED BLOOD CELL COUNT 2.88 mill/uL (4.7-6.1); RED CELL DISTRIBUTION WIDTH 15.2 % (11.6-14.6)
[2018-12-24] MEDS: BLOOD SUGAR DIAGNOSTIC STRIP TEST SCH ×4 (07:40→20:56)
[2018-12-24] MEDS: INSULIN LISPRO 100 UNITS/ML SUBCUT SCH ×4 (08:10→20:56)
[2018-12-24] MEDS: ASPIRIN 81MG EC TABLET PO SCH (08:35)
[2018-12-24] MEDS: THIAMINE HCL 100MG TABLET PO SCH (08:35)
[2018-12-24] MEDS: LISINOPRIL 10MG TABLET PO SCH (08:35)
[2018-12-24] MEDS: ENOXAPARIN 30MG/0.3ML SYR SUBCUT SCH (08:36)
[2018-12-24 16:00] VITALS: BP 136/65
[2018-12-24 20:00] VITALS: BP 142/55
[2018-12-24 23:57] VITALS: BP 134/51
[2018-12-25] MEDS: HYDROCODONE/APAP 7.5/325MG 1 TAB TABLET PO PRN ×2 (00:01→23:56)
[2018-12-25 04:00] VITALS: BP 144/65
[2018-12-25] MEDS: BLOOD SUGAR DIAGNOSTIC STRIP TEST SCH ×4 (06:15→21:00)
[2018-12-25] MEDS: INSULIN LISPRO 100 UNITS/ML SUBCUT SCH ×4 (07:20→21:00)
[2018-12-25 08:00] VITALS: BP 137/56
[2018-12-25] MEDS: LISINOPRIL 10MG TABLET PO SCH (09:03)
[2018-12-25] MEDS: THIAMINE HCL 100MG TABLET PO SCH (09:04)
[2018-12-25 12:00] VITALS: BP 139/48
[2018-12-25] MEDS ORDERED: DEXT 5%/0.45% NACL 1000ML 1,000 ML IV SCH (12:00)
[2018-12-25] MEDS: DEXT 5%/0.9% NACL 1,000 ML IV SCH (12:33)
[2018-12-25 13:05] LABS: BASOPHILS % 0.5 % (0.0-2.0); EOSINOPHILS % 1.9 % (0.0-5.0); HEMATOCRIT. 32.7 % (42.0-52.0); HEMOGLOBIN. 10.9 g/dL (14.0-18.0); LYMPHOCYTES % 24.5 % (20.0-50.0); MEAN CORPUSCULAR VOLUME 105.2 fL (80.0-94.0); MEAN PLATELET VOLUME 9.1 fl (7.4-10.4); MONOCYTES % 7.8 % (2.0-8.0); NEUTROPHILS % 65.3 % (40.0-76.0); PLATELET 139 x1000/uL (130-400); RED BLOOD CELL COUNT 3.11 mill/uL (4.7-6.1); RED CELL DISTRIBUTION WIDTH 15.4 % (11.6-14.6)
[2018-12-25 13:15] LABS: PARTIAL THROMBOPLASTIN TIME 31.5 sec (23.4-31.0); PROTHROMBIN TIME 10.7 sec (9.6-11.0)
[2018-12-25 13:16] LABS: PARTIAL THROMBOPLASTIN TIME 32.2 sec (23.4-31.0); PROTHROMBIN TIME 10.5 sec (9.6-11.0)
[2018-12-25 16:00] VITALS: BP 137/48
[2018-12-25 20:00] VITALS: BP 137/55
[2018-12-26] VITALS (29 sets, daily range): BP systolic 117–194; BP diastolic 44–82
[2018-12-26] MEDS: DEXT 5%/0.9% NACL 1,000 ML IV SCH ×2 (05:36→21:48)
[2018-12-26] MEDS: BLOOD SUGAR DIAGNOSTIC STRIP TEST SCH ×4 (07:40→21:48)
[2018-12-26] MEDS: INSULIN LISPRO 100 UNITS/ML SUBCUT SCH ×4 (08:10→21:48)
[2018-12-26] MEDS ORDERED: LIDOCAINE HCL 1% 20ML VIAL (Pyxis) INJ ONE ×2 (08:40→10:22)
[2018-12-26] MEDS ORDERED: SODIUM BICARBONATE 4% (2.4MEQ) 5ML VIAL IV ONE ×2 (08:40→10:22)
[2018-12-26] MEDS ORDERED: IOHEXOL-300 100 ML BOTTLE ONE (08:40)
[2018-12-26] MEDS ORDERED: FENTANYL CITRATE/PF 50MCG/ML 2ML VIAL ONE (09:27)
[2018-12-26] MEDS ORDERED: FENTANYL CITRATE/PF 50MCG/ML 2ML VIAL IV SCH (10:15)
[2018-12-26] MEDS ORDERED: IOHEXOL-350 100 ML BOTTLE ONE (11:49)
[2018-12-26] MEDS: THIAMINE HCL 100MG TABLET PO SCH (12:57)
[2018-12-26] MEDS: LISINOPRIL 10MG TABLET PO SCH (12:57)
[2018-12-26] MEDS ORDERED: VANCOMYCIN 1 G PREMIX 200 ML IV SCH (18:00)
[2018-12-26] MEDS: HYDROCODONE/APAP 7.5/325MG 1 TAB TABLET PO PRN (18:19)
[2018-12-26] MEDS: TERAZOSIN HCL 5MG CAPSULE PO SCH (21:47)
[2018-12-26] MEDS: ATORVASTATIN CALCIUM 20MG TABLET PO SCH (21:47)
[2018-12-26] MEDS: CARVEDILOL 12.5MG TABLET PO SCH (21:48)
[2018-12-27] VITALS (11 sets, daily range): BP systolic 131–184; BP diastolic 32–69
[2018-12-27] MEDS: BLOOD SUGAR DIAGNOSTIC STRIP TEST SCH ×4 (06:26→21:39)
[2018-12-27 06:57] LABS: BASOPHILS % 0.3 % (0.0-2.0); EOSINOPHILS % 1.5 % (0.0-5.0); HEMATOCRIT. 26.6 % (42.0-52.0); LYMPHOCYTES % 15.6 % (20.0-50.0); MEAN CORPUSCULAR HEMOGLOBIN 35.2 pg (28.0-32.0); MEAN CORPUSCULAR VOLUME 104.2 fL (80.0-94.0); MONOCYTES % 9.6 % (2.0-8.0); PLATELET 131 x1000/uL (130-400); RED BLOOD CELL COUNT 2.55 mill/uL (4.7-6.1); RED CELL DISTRIBUTION WIDTH 15.2 % (11.6-14.6)
[2018-12-27] MEDS: INSULIN LISPRO 100 UNITS/ML SUBCUT SCH ×4 (08:10→21:39)
[2018-12-27] MEDS: LISINOPRIL 40MG TABLET PO SCH (09:08)
[2018-12-27] MEDS: THIAMINE HCL 100MG TABLET PO SCH (09:08)
[2018-12-27] MEDS: CARVEDILOL 12.5MG TABLET PO SCH ×2 (09:08→21:07)
[2018-12-27] MEDS: CLONIDINE 0.1MG TABLET PO SCH (13:09)
[2018-12-27] MEDS: DEXT 5%/0.9% NACL 1,000 ML IV SCH (18:32)
[2018-12-27] MEDS: ATORVASTATIN CALCIUM 20MG TABLET PO SCH (21:07)
[2018-12-27] MEDS: CLONIDINE 0.1MG TABLET PO PRN (21:07)
[2018-12-27] MEDS: TERAZOSIN HCL 5MG CAPSULE PO SCH (21:09)
[2018-12-28] VITALS (7 sets, daily range): BP systolic 103–194; BP diastolic 33–79
[2018-12-28] MEDS ORDERED: PROMETHAZINE/DEXTROMETHORPHAN 6.25-15MG/5ML BOTTLE 120ML PO PRN
[2018-12-28] MEDS: BLOOD SUGAR DIAGNOSTIC STRIP TEST SCH ×4 (05:44→21:13)
[2018-12-28] MEDS: DEXT 5%/0.9% NACL 1,000 ML IV SCH ×2 (05:44→23:50)
[2018-12-28] MEDS: INSULIN LISPRO 100 UNITS/ML SUBCUT SCH ×4 (08:10→21:23)
[2018-12-28] MEDS ORDERED: BACITRACIN 50,000 UNITS/VIAL ONE (08:25)
[2018-12-28] MEDS ORDERED: NORMAL SALINE 0.9% 10 ML SYR ONE (08:25)
[2018-12-28] MEDS ORDERED: LIDOCAINE HCL 1% 20ML VIAL (Pyxis) INJ ONE (08:25)
[2018-12-28] MEDS ORDERED: BUPIVACAINE HCL/PF 0.5% (5MG/ML) 10ML ONE ×2 (08:25→09:04)
[2018-12-28] MEDS ORDERED: VANCOMYCIN HCL 500 MG/VIAL ONE (09:39)
[2018-12-28] MEDS ORDERED: GUAIFENESIN-DM 200MG-20MG/10ML UDC PO PRN (11:30)
[2018-12-28] MEDS: CLONIDINE 0.1MG TABLET PO SCH (12:32)
[2018-12-28] MEDS: THIAMINE HCL 100MG TABLET PO SCH (12:32)
[2018-12-28] MEDS: LISINOPRIL 40MG TABLET PO SCH (12:33)
[2018-12-28] MEDS: CARVEDILOL 12.5MG TABLET PO SCH ×2 (12:33→20:13)
[2018-12-28] MEDS: CIPROFLOXACIN 0.3% OPHTH SOLN 2.5ML EACHEYE SCH ×4 (12:35→20:15)
[2018-12-28] MEDS: CEFAZOLIN 1000MG PREMIX 50 ML IV SCH ×2 (14:00→21:13)
[2018-12-28] MEDS ORDERED: CEFAZOLIN SODIUM 1000MG/VIAL IV SCH (14:00)
[2018-12-28 15:30] LABS: BASOPHILS % 0.2 % (0.0-2.0); EOSINOPHILS % 0.3 % (0.0-5.0); HEMATOCRIT. 30.2 % (42.0-52.0); LYMPHOCYTES % 9.5 % (20.0-50.0); MEAN CORPUSCULAR HEMOGLOBIN 35.2 pg (28.0-32.0); MEAN CORPUSCULAR VOLUME 105.9 fL (80.0-94.0); MEAN PLATELET VOLUME 9.4 fl (7.4-10.4); MONOCYTES % 1.1 % (2.0-8.0); NEUTROPHILS % 88.9 % (40.0-76.0); PLATELET 142 x1000/uL (130-400); RED BLOOD CELL COUNT 2.85 mill/uL (4.7-6.1); RED CELL DISTRIBUTION WIDTH 15.3 % (11.6-14.6)
[2018-12-28] MEDS: HYDROCODONE/ACETAMINOPHEN 5/325MG TABLET PO PRN (19:40)
[2018-12-28] MEDS: ATORVASTATIN CALCIUM 20MG TABLET PO SCH (20:14)
[2018-12-28] MEDS: TERAZOSIN HCL 5MG CAPSULE PO SCH (20:14)
[2018-12-29 00:34] VITALS: BP 144/54
[2018-12-29] MEDS: HYDROCODONE/ACETAMINOPHEN 5/325MG TABLET PO PRN (01:53)
[2018-12-29 04:00] VITALS: BP 128/48
[2018-12-29] MEDS: CEFAZOLIN 1000MG PREMIX 50 ML IV SCH (06:24)
[2018-12-29] MEDS: BLOOD SUGAR DIAGNOSTIC STRIP TEST SCH (06:25)
[2018-12-29 07:30] LABS: BASOPHILS % 0.1 % (0.0-2.0); HEMOGLOBIN. 9.2 g/dL (14.0-18.0); LYMPHOCYTES % 14.3 % (20.0-50.0); MEAN CORPUSCULAR HEMOGLOBIN 35.7 pg (28.0-32.0); MEAN CORPUSCULAR VOLUME 104.4 fL (80.0-94.0); MEAN PLATELET VOLUME 9.4 fl (7.4-10.4); NEUTROPHILS % 78.6 % (40.0-76.0); PLATELET 131 x1000/uL (130-400); RED BLOOD CELL COUNT 2.58 mill/uL (4.7-6.1); RED CELL DISTRIBUTION WIDTH 14.7 % (11.6-14.6)
[2018-12-29 08:00] VITALS: BP 158/60
[2018-12-29] MEDS: THIAMINE HCL 100MG TABLET PO SCH (08:41)
[2018-12-29] MEDS: CIPROFLOXACIN 0.3% OPHTH SOLN 2.5ML EACHEYE SCH (08:41)
[2018-12-29] MEDS: LISINOPRIL 40MG TABLET PO SCH (08:43)
[2018-12-29] MEDS: CLONIDINE 0.1MG TABLET PO SCH (08:44)
[2018-12-29] MEDS: CARVEDILOL 12.5MG TABLET PO SCH (08:44)
[2018-12-29 11:24] VITALS: BP 145/52
[2018-12-29 12:00] VITALS: BP 158/60
== END 2018-12-29 13:47 | disposition home or self-care (01) | DRG 252 ==
LOC: 7WST 20:01
PROVIDERS: ADMIT Internal Medicine Nephrology; ATTEND Internal Medicine Nephrology
PROC: 5A1D70Z Performance of Urinary Filtration, Intermittent, Less than 6 Hours Per Day (ICD-10-PCS; 2018-12-23)
PROC: 02HV33Z Insertion of Infusion Device into Superior Vena Cava, Percutaneous Approach (ICD-10-PCS; 2018-12-26)
PROC: B5181ZA Fluoroscopy of Superior Vena Cava using Low Osmolar Contrast, Guidance (ICD-10-PCS; 2018-12-26)
PROC: B548ZZA Ultrasonography of Superior Vena Cava, Guidance (ICD-10-PCS; 2018-12-26)
PROC: 037C3ZZ Dilation of Left Radial Artery, Percutaneous Approach (ICD-10-PCS; 2018-12-26)
PROC: 0X6N0Z1 Detachment at Right Index Finger, High, Open Approach (ICD-10-PCS; principal; 2018-12-28)
PROC: 5A1D70Z Performance of Urinary Filtration, Intermittent, Less than 6 Hours Per Day (ICD-10-PCS; 2018-12-28)
DX: E11.52 Type 2 diabetes mellitus with diabetic peripheral angiopathy with gangrene (principal); N18.6 End stage renal disease; I12.0 Hypertensive chronic kidney disease with stage 5 chronic kidney disease or end stage renal disease; E87.1 Hypo-osmolality and hyponatremia; I70.268 Atherosclerosis of native arteries of extremities with gangrene, other extremity; E11.22 Type 2 diabetes mellitus with diabetic chronic kidney disease; E87.6 Hypokalemia; Z99.2 Dependence on renal dialysis; Z85.46 Personal history of malignant neoplasm of prostate; E78.5 Hyperlipidemia, unspecified; Z85.820 Personal history of malignant melanoma of skin; L08.9 Local infection of the skin and subcutaneous tissue, unspecified; E87.5 Hyperkalemia; Z79.4 Long term (current) use of insulin; Z79.82 Long term (current) use of aspirin; Z79.899 Other long term (current) drug therapy; Z87.891 Personal history of nicotine dependence
CPT/HCPCS: 36415; 36573; 71045; 71275; 73206; 76937; 80048; 80076; 80202; 82962; 88305; 88311; 99152; 99153; C1725; C1766; C1769; J0690; J1100; J1644; J1650; J1815; J2250; J2270; J2370; J2405; J2704; J3010; J3370; J3490; J7040; J7042; Q9967; G0500

== ENCOUNTER 2019-03-15 15:42 | Emergency (ER) | payer MEDICARE, MEDICAID ==
[~2019-03-15 15:42] MED LIST changes: -DIPH25CA83 PO; +LEVO500T2 MT
[2019-03-16] MEDS ORDERED: norco (11:19)
== END 2019-03-15 18:13 | disposition left against medical advice (07) ==
LOC: ER 18:06
DX: M79.669 Pain in unspecified lower leg (principal); Z53.21 Procedure and treatment not carried out due to patient leaving prior to being seen by health care provider

== ENCOUNTER 2019-03-16 10:36 | Inpatient (IN) | payer MEDICARE, MEDICAID ==
[~2019-03-16] VITALS: Ht 200.7 cm; Wt 83.5 kg
[~2019-03-16 10:36] MED LIST changes: +OMEP20CA14 PO; -OMEP20CA5 PO
[2019-03-16] MEDS ORDERED: norco (11:19)
[2019-03-16] MEDS ORDERED: PIPERACILLIN/TAZOBACTAM 3.375GM/50ML PREMIX IV NR (12:30)
[2019-03-16 12:53] LABS: BASOPHILS % 0.3 % (0.0-2.0); EOSINOPHILS % 0.2 % (0.0-5.0); HEMATOCRIT. 27.8 % (42.0-52.0); HEMOGLOBIN. 9.4 g/dL (14.0-18.0); LYMPHOCYTES % 8.5 % (20.0-50.0); MEAN CORPUSCULAR HEMOGLOBIN 35.3 pg (28.0-32.0); MEAN CORPUSCULAR VOLUME 104.3 fL (80.0-94.0); MEAN PLATELET VOLUME 9.1 fl (7.4-10.4); MONOCYTES % 6.9 % (2.0-8.0); NEUTROPHILS % 84.1 % (40.0-76.0); PLATELET 160 x1000/uL (130-400); RED BLOOD CELL COUNT 2.66 mill/uL (4.7-6.1); RED CELL DISTRIBUTION WIDTH 14.4 % (11.6-14.6)
[2019-03-16 13:00] LABS: CHLORIDE 101 mEq/L (98-107)
[2019-03-16] MEDS ORDERED: ONDANSETRON HCL 4MG/2ML INJ IV PRN (13:00)
[2019-03-16 13:02] LABS: INR 1.1; PROTHROMBIN TIME 11.6 sec (9.6-11.0)
[2019-03-16] MEDS ORDERED: HYDROCODONE/ACETAMINOPHEN 10/325MG TABLET PO ONE ×2 (13:30→17:00)
[2019-03-16] MEDS ORDERED: AMLODIPINE 10MG TABLET PO ONE (14:00)
[2019-03-16] MEDS ORDERED: CARVEDILOL 12.5MG TABLET PO SCH ×2 (17:00)
[2019-03-16 20:00] VITALS: BP 149/65
[2019-03-16] MEDS ORDERED: ATORVASTATIN CALCIUM 20MG TABLET PO SCH (21:00)
[2019-03-16] MEDS: ACETAMINOPHEN 325MG TABLET PO PRN (21:57)
[2019-03-17] MEDS: ACETAMINOPHEN 325MG TABLET PO PRN ×2 (05:33→13:53)
[2019-03-17] MEDS ORDERED: PIPERACILLIN/TAZ 3.375G PREMIX 50 ML IV SCH (08:00)
[2019-03-17] MEDS: ASPIRIN 81MG EC TABLET PO SCH (09:21)
[2019-03-17] MEDS: CARVEDILOL 12.5MG TABLET PO SCH ×2 (09:21→21:45)
[2019-03-17] MEDS ORDERED: DEXTROSE 50% WATER 50ML SYRINGE IV PRN (12:45)
[2019-03-17] MEDS: BLOOD SUGAR DIAGNOSTIC STRIP TEST SCH ×3 (13:37→21:00)
[2019-03-17] MEDS: INSULIN LISPRO 100 UNITS/ML SUBCUT SCH ×3 (13:46→21:00)
[2019-03-17] MEDS ORDERED: PIPERACILLIN/TAZOBACTAM 2.25 G in DEXTROSE 5% WATER 50 ML IV SCH (16:00)
[2019-03-17 16:50] VITALS: BP 155/80
[2019-03-17] MEDS ORDERED: CLONIDINE 0.1MG TABLET PO PRN (17:30)
[2019-03-17] MEDS: LISINOPRIL 20MG TABLET PO SCH ×2 (19:04→21:46)
[2019-03-17] MEDS: PIPERACILLIN/TAZOBACTAM 2.25 G in DEXTROSE 5% WATER 50 ML IV SCH (19:07)
[2019-03-17 20:00] VITALS: BP 169/74
[2019-03-17 20:41] LABS: BASOPHILS % 0.6 % (0.0-2.0); EOSINOPHILS % 2.4 % (0.0-5.0); HEMATOCRIT. 27.9 % (42.0-52.0); HEMOGLOBIN. 9.3 g/dL (14.0-18.0); LYMPHOCYTES % 20.6 % (20.0-50.0); MEAN CORPUSCULAR HEMOGLOBIN 34.9 pg (28.0-32.0); MEAN CORPUSCULAR VOLUME 104.9 fL (80.0-94.0); MEAN PLATELET VOLUME 9.1 fl (7.4-10.4); MONOCYTES % 7.7 % (2.0-8.0); NEUTROPHILS % 68.7 % (40.0-76.0); PLATELET 149 x1000/uL (130-400); RED BLOOD CELL COUNT 2.66 mill/uL (4.7-6.1); RED CELL DISTRIBUTION WIDTH 14.2 % (11.6-14.6)
[2019-03-17 20:45] LABS: CHLORIDE 99 mEq/L (98-107)
[2019-03-17] MEDS: ATORVASTATIN CALCIUM 20MG TABLET PO SCH (21:46)
[2019-03-18] VITALS: BP 141/61
[2019-03-18] MEDS: PIPERACILLIN/TAZOBACTAM 2.25 G in DEXTROSE 5% WATER 50 ML IV SCH ×3 (02:57→18:35)
[2019-03-18 04:00] VITALS: BP 154/71
[2019-03-18 07:07] LABS: BASOPHILS % 0.7 % (0.0-2.0); EOSINOPHILS % 2.7 % (0.0-5.0); HEMATOCRIT. 27.3 % (42.0-52.0); HEMOGLOBIN. 9.3 g/dL (14.0-18.0); LYMPHOCYTES % 19.5 % (20.0-50.0); MEAN CORPUSCULAR VOLUME 105.3 fL (80.0-94.0); MEAN PLATELET VOLUME 9.6 fl (7.4-10.4); MONOCYTES % 6.8 % (2.0-8.0); NEUTROPHILS % 70.3 % (40.0-76.0); PLATELET 153 x1000/uL (130-400); RED BLOOD CELL COUNT 2.59 mill/uL (4.7-6.1); RED CELL DISTRIBUTION WIDTH 14.2 % (11.6-14.6)
[2019-03-18] MEDS: BLOOD SUGAR DIAGNOSTIC STRIP TEST SCH ×4 (07:20→21:00)
[2019-03-18] MEDS: INSULIN LISPRO 100 UNITS/ML SUBCUT SCH ×4 (07:20→21:00)
[2019-03-18 08:00] VITALS: BP 163/72
[2019-03-18] MEDS: ASPIRIN 81MG EC TABLET PO SCH (09:53)
[2019-03-18] MEDS: CARVEDILOL 12.5MG TABLET PO SCH ×2 (09:54→21:17)
[2019-03-18] MEDS: LISINOPRIL 20MG TABLET PO SCH ×2 (09:54→21:18)
[2019-03-18 12:00] VITALS: BP 143/64
[2019-03-18] MEDS: HYDROCODONE/ACETAMINOPHEN 5/325MG TABLET PO PRN ×2 (13:24→21:18)
[2019-03-18 16:00] VITALS: BP 142/60
[2019-03-18] MEDS ORDERED: MORPHINE SULFATE 2 MG/ML CPJ (NOT FOR IM USE) IV PRN (17:45)
[2019-03-18 20:00] VITALS: BP 140/59
[2019-03-18] MEDS: ATORVASTATIN CALCIUM 20MG TABLET PO SCH (21:18)
[2019-03-19] VITALS (35 sets, daily range): BP systolic 64–157; BP diastolic 40–74
[2019-03-19] MEDS: PIPERACILLIN/TAZOBACTAM 2.25 G in DEXTROSE 5% WATER 50 ML IV SCH ×3 (01:11→18:00)
[2019-03-19] MEDS: BLOOD SUGAR DIAGNOSTIC STRIP TEST SCH ×3 (06:21→20:26)
[2019-03-19 06:50] LABS: BASOPHILS % 0.4 % (0.0-2.0); EOSINOPHILS % 2.3 % (0.0-5.0); HEMATOCRIT. 25.7 % (42.0-52.0); HEMOGLOBIN. 8.6 g/dL (14.0-18.0); LYMPHOCYTES % 25.5 % (20.0-50.0); MEAN CORPUSCULAR HEMOGLOBIN 34.6 pg (28.0-32.0); MEAN CORPUSCULAR VOLUME 103.8 fL (80.0-94.0); MEAN PLATELET VOLUME 9.4 fl (7.4-10.4); MONOCYTES % 8.4 % (2.0-8.0); NEUTROPHILS % 63.4 % (40.0-76.0); PLATELET 136 x1000/uL (130-400); RED BLOOD CELL COUNT 2.47 mill/uL (4.7-6.1); RED CELL DISTRIBUTION WIDTH 14.2 % (11.6-14.6)
[2019-03-19] MEDS: INSULIN LISPRO 100 UNITS/ML SUBCUT SCH ×3 (07:36→20:26)
[2019-03-19 07:38] LABS: CHLORIDE 99 mEq/L (98-107)
[2019-03-19] MEDS: LISINOPRIL 20MG TABLET PO SCH ×2 (08:14→20:17)
[2019-03-19] MEDS: CARVEDILOL 12.5MG TABLET PO SCH ×2 (08:14→20:17)
[2019-03-19] MEDS: ASPIRIN 81MG EC TABLET PO SCH (08:19)
[2019-03-19] MEDS ORDERED: HEPARIN 5000 UNITS/ML VIAL ONE (12:06)
[2019-03-19] MEDS ORDERED: PAPAVERINE HCL 30 MG/ML 2ML IV ONE (12:06)
[2019-03-19] MEDS ORDERED: THROMBIN (BOVINE) 5000 UNITS/VIAL TOP ONE ×2 (12:07→12:08)
[2019-03-19] MEDS ORDERED: LIDOCAINE HCL 1% 20ML VIAL (Pyxis) INJ ONE (12:07)
[2019-03-19] MEDS ORDERED: BACITRACIN 15GM TUBE TOP ONE (12:07)
[2019-03-19] MEDS ORDERED: BUPIVACAINE HCL/PF 0.5% (5MG/ML) 10ML ONE (12:08)
[2019-03-19] MEDS ORDERED: BACITRACIN 50,000 UNITS/VIAL ONE (12:08)
[2019-03-19] MEDS ORDERED: HEPARIN SODIUM 1,000 UNIT/1ML VIAL IV ONE (12:08)
[2019-03-19] MEDS ORDERED: HYDROCODONE/ACETAMINOPHEN 5/325MG TABLET PO PRN (13:15)
[2019-03-19] MEDS ORDERED: ROPIVACAINE HCL 10MG/ML 20 ML VIAL EPI ONE (14:02)
[2019-03-19] MEDS ORDERED: ONDANSETRON HCL 4MG/2ML INJ ONE (14:06)
[2019-03-19] MEDS ORDERED: SUCCINYLCHOLINE CHLORIDE 200MG/10ML IV ONE (14:06)
[2019-03-19] MEDS ORDERED: PROPOFOL 200MG/20ML VIAL IV ONE (14:06)
[2019-03-19] MEDS ORDERED: LIDOCAINE HCL/PF 1% 10 MG/ML 5ML VIAL ONE (14:06)
[2019-03-19] MEDS ORDERED: GLYCOPYRROLATE 0.2 MG/ML 2ML VIAL ONE ×3 (14:06→18:24)
[2019-03-19] MEDS ORDERED: FENTANYL CITRATE/PF 50MCG/ML 2ML VIAL ONE (14:06)
[2019-03-19] MEDS ORDERED: MIDAZOLAM HCL 2 MG/2 ML VIAL ONE ×2 (14:06→18:36)
[2019-03-19] MEDS ORDERED: METOCLOPRAMIDE HCL 10MG/2ML VIAL ONE (14:06)
[2019-03-19] MEDS ORDERED: ROCURONIUM BROMIDE 10MG/ML VIAL 5ML IV ONE ×3 (14:12→18:00)
[2019-03-19] MEDS ORDERED: MORPHINE SULFATE 2 MG/ML CPJ (NOT FOR IM USE) IV PRN (17:45)
[2019-03-19] MEDS ORDERED: DESMOPRESSIN ACETATE IVPB 26 MCG in SODIUM CHLORIDE 0.9% 50 ML IV SCH (18:00)
[2019-03-19] MEDS ORDERED: NEOSTIGMINE METHYLSULFATE 1MG/ML 10 ML VIAL ONE (18:12)
[2019-03-19] MEDS ORDERED: ACETAMINOPHEN 650MG SUPP PR PRN (18:30)
[2019-03-19] MEDS ORDERED: DOCUSATE SODIUM SUGAR FREE 100MG/10ML UDC NG PRN (18:30)
[2019-03-19] MEDS ORDERED: BISACODYL 10MG SUPP PR PRN (18:30)
[2019-03-19] MEDS ORDERED: PROPOFOL 10MG/ML 100ML 100 ML IV PRN (20:15)
[2019-03-19] MEDS: ATORVASTATIN CALCIUM 20MG TABLET PO SCH (20:17)
[2019-03-19 20:58] LABS: BG BASE EXCESS 0.8 mmol/L (-2.0-2.0); BG CARBOXYHEMOGLOBIN 0.3 % (0.5-1.5); BG DEOXYHEMOGLOBIN 0.6 % (0.0-5.0); BG FRACTION INSPIRED OXYGEN 100; BG HCO3 ACT 22.5 mmol/L (22.0-26.0); BG METHEMOGLOBIN 0.6 % (0.0-1.5); BG OXYGEN SATURATION 99.4 % (92.0-98.5); BG OXYHEMOGLOBIN 98.5 % (94.0-97.0); BG PCO2 26.4 mmHg (35.0-45.0); BG PH 7.548 (7.350-7.450); BG PO2 488.1 mmHg (75.0-100.0); BG SAMPLE SITE RIGHT BRACHIAL; BG TIDAL VOLUME(mL) 500 mL; BG TOTAL HEMOGLOBIN 9.7 g/dL (12.0-18.0); BG VENT MODE VENT - A/C; BG VENT RATE 12 set
[2019-03-19] MEDS ORDERED: NOREPINEPHRINE 16 MG in DEXT 5% WATER 234 ML IV PRN (21:15)
[2019-03-19] MEDS: HEPARIN 5000 UNITS/ML VIAL SUBCUT SCH (21:44)
[2019-03-20] VITALS (76 sets, daily range): BP systolic 77–142; BP diastolic 33–77
[2019-03-20] MEDS: PIPERACILLIN/TAZOBACTAM 2.25 G in DEXTROSE 5% WATER 50 ML IV SCH ×3 (02:31→17:38)
[2019-03-20 06:20] LABS: BASOPHILS % 0.3 % (0.0-2.0); EOSINOPHILS % 0.1 % (0.0-5.0); HEMATOCRIT. 25.9 % (42.0-52.0); HEMOGLOBIN. 8.7 g/dL (14.0-18.0); LYMPHOCYTES % 12.2 % (20.0-50.0); MEAN CORPUSCULAR HEMOGLOBIN 33.6 pg (28.0-32.0); MEAN CORPUSCULAR VOLUME 100.7 fL (80.0-94.0); MEAN PLATELET VOLUME 9.5 fl (7.4-10.4); MONOCYTES % 7.3 % (2.0-8.0); NEUTROPHILS % 80.1 % (40.0-76.0); PLATELET 135 x1000/uL (130-400); RED BLOOD CELL COUNT 2.57 mill/uL (4.7-6.1); RED CELL DISTRIBUTION WIDTH 17.8 % (11.6-14.6)
[2019-03-20 07:54] LABS: BG BASE EXCESS -2.3 mmol/L (-2.0-2.0); BG CARBOXYHEMOGLOBIN 0.2 % (0.5-1.5); BG DEOXYHEMOGLOBIN 0.9 % (0.0-5.0); BG HCO3 ACT 20.7 mmol/L (22.0-26.0); BG METHEMOGLOBIN 0.1 % (0.0-1.5); BG OXYGEN SATURATION 99.1 % (92.0-98.5); BG OXYHEMOGLOBIN 98.8 % (94.0-97.0); BG PCO2 28.5 mmHg (35.0-45.0); BG PO2 174.5 mmHg (75.0-100.0); BG SAMPLE SITE RIGHT BRACHIAL; BG TIDAL VOLUME(mL) 500 mL; BG TOTAL HEMOGLOBIN 7.4 g/dL (12.0-18.0); BG VENT MODE VENT - A/C; BG VENT RATE 10 set
[2019-03-20] MEDS: INSULIN LISPRO 100 UNITS/ML SUBCUT SCH ×4 (08:20→20:37)
[2019-03-20] MEDS: BLOOD SUGAR DIAGNOSTIC STRIP TEST SCH ×4 (08:26→20:38)
[2019-03-20] MEDS: CARVEDILOL 12.5MG TABLET PO SCH ×2 (08:27→20:38)
[2019-03-20] MEDS: LISINOPRIL 20MG TABLET PO SCH ×2 (08:27→20:38)
[2019-03-20] MEDS: ASPIRIN 81MG EC TABLET PO SCH (09:00)
[2019-03-20] MEDS: HEPARIN 5000 UNITS/ML VIAL SUBCUT SCH ×2 (09:26→20:38)
[2019-03-20 10:10] LABS: BG BASE EXCESS -3.5 mmol/L (-2.0-2.0); BG CARBOXYHEMOGLOBIN 0.3 % (0.5-1.5); BG CPAP (cmH2O) 0 cm(H2O); BG DEOXYHEMOGLOBIN 1.2 % (0.0-5.0); BG HCO3 ACT 19.7 mmol/L (22.0-26.0); BG METHEMOGLOBIN 0.3 % (0.0-1.5); BG OXYGEN SATURATION 98.8 % (92.0-98.5); BG OXYHEMOGLOBIN 98.2 % (94.0-97.0); BG PCO2 28.6 mmHg (35.0-45.0); BG PH 7.455 (7.350-7.450); BG PO2 180.6 mmHg (75.0-100.0); BG SAMPLE SITE RIGHT BRACHIAL; BG TOTAL HEMOGLOBIN 8.8 g/dL (12.0-18.0); BG VENT MODE VENT - CPAP
[2019-03-20] MEDS: GABAPENTIN 300MG CAPSULE PO SCH ×2 (14:00→21:00)
[2019-03-20 15:08] LABS: BG BASE EXCESS -0.1 mmol/L (-2.0-2.0); BG CARBOXYHEMOGLOBIN 0.3 % (0.5-1.5); BG DEOXYHEMOGLOBIN 1.1 % (0.0-5.0); BG FRACTION INSPIRED OXYGEN 50; BG HCO3 ACT 23.3 mmol/L (22.0-26.0); BG METHEMOGLOBIN 0.3 % (0.0-1.5); BG OXYGEN SATURATION 98.9 % (92.0-98.5); BG OXYHEMOGLOBIN 98.3 % (94.0-97.0); BG PH 7.467 (7.350-7.450); BG PO2 194.8 mmHg (75.0-100.0); BG PRESSURE SUPPORT 10; BG SAMPLE SITE RIGHT BRACHIAL; BG TOTAL HEMOGLOBIN 9.1 g/dL (12.0-18.0); BG VENT MODE VENT - CPAP
[2019-03-20] MEDS ORDERED: VANCOMYCIN 1 G PREMIX 200 ML IV NR (20:30)
[2019-03-20] MEDS: ATORVASTATIN CALCIUM 20MG TABLET PO SCH (20:37)
[2019-03-21] VITALS (46 sets, daily range): BP systolic 107–140; BP diastolic 48–69
[2019-03-21] MEDS: PIPERACILLIN/TAZOBACTAM 2.25 G in DEXTROSE 5% WATER 50 ML IV SCH ×3 (02:32→18:04)
[2019-03-21 05:45] LABS: BASOPHILS % 0.2 % (0.0-2.0); EOSINOPHILS % 0.1 % (0.0-5.0); HEMATOCRIT. 23.6 % (42.0-52.0); HEMOGLOBIN. 7.8 g/dL (14.0-18.0); MEAN CORPUSCULAR HEMOGLOBIN 33.6 pg (28.0-32.0); MEAN CORPUSCULAR VOLUME 101.4 fL (80.0-94.0); MEAN PLATELET VOLUME 9.7 fl (7.4-10.4); MONOCYTES % 12.7 % (2.0-8.0); PLATELET 144 x1000/uL (130-400); RED BLOOD CELL COUNT 2.33 mill/uL (4.7-6.1); RED CELL DISTRIBUTION WIDTH 17.5 % (11.6-14.6)
[2019-03-21] MEDS: GABAPENTIN 300MG CAPSULE PO SCH ×3 (06:43→21:28)
[2019-03-21] MEDS: BLOOD SUGAR DIAGNOSTIC STRIP TEST SCH ×4 (07:55→21:22)
[2019-03-21] MEDS: CARVEDILOL 12.5MG TABLET PO SCH ×2 (08:15→20:20)
[2019-03-21] MEDS: LISINOPRIL 20MG TABLET PO SCH ×2 (08:16→20:20)
[2019-03-21] MEDS: ASPIRIN 81MG EC TABLET PO SCH (08:47)
[2019-03-21] MEDS: INSULIN LISPRO 100 UNITS/ML SUBCUT SCH ×4 (08:48→21:00)
[2019-03-21] MEDS: HEPARIN 5000 UNITS/ML VIAL SUBCUT SCH ×2 (09:57→21:23)
[2019-03-21] MEDS: ATORVASTATIN CALCIUM 20MG TABLET PO SCH (20:20)
[2019-03-21] MEDS: EPOETIN ALFA 4000UNITS/ML VIAL SUBCUT SCH (21:23)
[2019-03-21 21:46] LABS: T4 FREE 1.65 ng/dL (0.76-1.46)
[2019-03-21] MEDS: LACTULOSE 20G/30ML UDC PO SCH (22:27)
[2019-03-21] MEDS ORDERED: LACTULOSE 20G/30ML UDC PO SCH (22:30)
[2019-03-21 23:48] LABS: VITAMIN B12 SERUM > 2000.0 pg/mL (211-911)
[2019-03-22] VITALS (54 sets, daily range): BP systolic 92–175; BP diastolic 42–129
[2019-03-22] MEDS: PIPERACILLIN/TAZOBACTAM 2.25 G in DEXTROSE 5% WATER 50 ML IV SCH ×2 (01:38→12:25)
[2019-03-22] MEDS: LACTULOSE 20G/30ML UDC PO SCH ×3 (05:52→20:18)
[2019-03-22] MEDS: GABAPENTIN 300MG CAPSULE PO SCH ×3 (05:52→22:42)
[2019-03-22 06:30] LABS: BASOPHILS % 0.3 % (0.0-2.0); EOSINOPHILS % 1.1 % (0.0-5.0); LYMPHOCYTES % 17.1 % (20.0-50.0); MEAN CORPUSCULAR HEMOGLOBIN 34.3 pg (28.0-32.0); MEAN CORPUSCULAR VOLUME 101.4 fL (80.0-94.0); MEAN PLATELET VOLUME 9.6 fl (7.4-10.4); MONOCYTES % 9.1 % (2.0-8.0); NEUTROPHILS % 72.4 % (40.0-76.0); PLATELET 141 x1000/uL (130-400); RED BLOOD CELL COUNT 1.99 mill/uL (4.7-6.1); RED CELL DISTRIBUTION WIDTH 16.9 % (11.6-14.6)
[2019-03-22 06:41] LABS: HEMATOCRIT. 20.1 % (42.0-52.0); HEMOGLOBIN. 6.8 g/dL (14.0-18.0)
[2019-03-22] MEDS: BLOOD SUGAR DIAGNOSTIC STRIP TEST SCH ×4 (07:50→20:18)
[2019-03-22] MEDS: INSULIN LISPRO 100 UNITS/ML SUBCUT SCH ×4 (08:06→20:45)
[2019-03-22] MEDS: HEPARIN 5000 UNITS/ML VIAL SUBCUT SCH ×2 (08:19→20:46)
[2019-03-22] MEDS: ASPIRIN 81MG EC TABLET PO SCH (08:19)
[2019-03-22] MEDS: LISINOPRIL 20MG TABLET PO SCH ×2 (08:20→20:18)
[2019-03-22] MEDS: CARVEDILOL 12.5MG TABLET PO SCH ×2 (08:20→20:18)
[2019-03-22 09:49] LABS: BG BASE EXCESS 4.9 mmol/L (-2.0-2.0); BG CARBOXYHEMOGLOBIN 0.2 % (0.5-1.5); BG DEOXYHEMOGLOBIN 2.8 % (0.0-5.0); BG FRACTION INSPIRED OXYGEN 24; BG HCO3 ACT 29.5 mmol/L (22.0-26.0); BG METHEMOGLOBIN 0.1 % (0.0-1.5); BG OXYGEN SATURATION 97.2 % (92.0-98.5); BG OXYHEMOGLOBIN 96.9 % (94.0-97.0); BG PCO2 44.2 mmHg (35.0-45.0); BG PH 7.442 (7.350-7.450); BG PO2 99.1 mmHg (75.0-100.0); BG SAMPLE SITE RIGHT BRACHIAL; BG TOTAL HEMOGLOBIN 7.7 g/dL (12.0-18.0); BG VENT MODE NASAL CANNULA
[2019-03-22] MEDS ORDERED: VANCOMYCIN 1 G PREMIX 200 ML IV SCH (14:00)
[2019-03-22 15:54] LABS: HEMATOCRIT 25.9 % (42.0-52.0); HEMOGLOBIN 8.7 g/dL (14.0-18.0); MEAN CORPUSCULAR HEMOGLOBIN 33.4 pg (28.0-32.0); MEAN CORPUSCULAR VOLUME 99.5 fL (80.0-94.0); PLATELET 135 x1000/uL (130-400); RED CELL DISTRIBUTION WIDTH 17.9 % (11.6-14.6)
[2019-03-22] MEDS: ATORVASTATIN CALCIUM 20MG TABLET PO SCH (20:18)
[2019-03-22] MEDS: ACETAMINOPHEN 325MG TABLET PO PRN (20:41)
[2019-03-23] VITALS (12 sets, daily range): BP systolic 118–147; BP diastolic 56–73
[2019-03-23] MEDS: LACTULOSE 20G/30ML UDC PO SCH ×3 (01:30→21:24)
[2019-03-23] MEDS: GABAPENTIN 300MG CAPSULE PO SCH ×3 (06:28→21:21)
[2019-03-23] MEDS: BLOOD SUGAR DIAGNOSTIC STRIP TEST SCH ×3 (06:28→21:00)
[2019-03-23 07:27] LABS: BASOPHILS % 0.3 % (0.0-2.0); EOSINOPHILS % 1.2 % (0.0-5.0); HEMATOCRIT. 27.4 % (42.0-52.0); HEMOGLOBIN. 9.3 g/dL (14.0-18.0); LYMPHOCYTES % 18.6 % (20.0-50.0); MEAN CORPUSCULAR HEMOGLOBIN 33.7 pg (28.0-32.0); MEAN CORPUSCULAR VOLUME 99.3 fL (80.0-94.0); MEAN PLATELET VOLUME 9.8 fl (7.4-10.4); MONOCYTES % 8.5 % (2.0-8.0); NEUTROPHILS % 71.4 % (40.0-76.0); PLATELET 154 x1000/uL (130-400); RED BLOOD CELL COUNT 2.75 mill/uL (4.7-6.1); RED CELL DISTRIBUTION WIDTH 17.9 % (11.6-14.6)
[2019-03-23] MEDS: INSULIN LISPRO 100 UNITS/ML SUBCUT SCH ×3 (08:00→21:00)
[2019-03-23] MEDS: ASPIRIN 81MG EC TABLET PO SCH (08:38)
[2019-03-23] MEDS: HEPARIN 5000 UNITS/ML VIAL SUBCUT SCH ×2 (08:38→21:23)
[2019-03-23] MEDS: CARVEDILOL 12.5MG TABLET PO SCH ×2 (08:38→21:22)
[2019-03-23] MEDS: LISINOPRIL 20MG TABLET PO SCH ×2 (08:39→21:22)
[2019-03-23] MEDS: EPOETIN ALFA 4000UNITS/ML VIAL SUBCUT SCH (21:00)
[2019-03-23] MEDS: ATORVASTATIN CALCIUM 20MG TABLET PO SCH (21:21)
[2019-03-24] VITALS (18 sets, daily range): BP systolic 113–149; BP diastolic 52–66
[2019-03-24] MEDS: GABAPENTIN 300MG CAPSULE PO SCH ×3 (05:25→21:01)
[2019-03-24] MEDS: LACTULOSE 20G/30ML UDC PO SCH ×3 (05:25→21:01)
[2019-03-24] MEDS: BLOOD SUGAR DIAGNOSTIC STRIP TEST SCH ×4 (07:30→21:00)
[2019-03-24] MEDS: INSULIN LISPRO 100 UNITS/ML SUBCUT SCH ×4 (08:00→21:00)
[2019-03-24] MEDS: LISINOPRIL 20MG TABLET PO SCH ×2 (09:00→21:00)
[2019-03-24] MEDS: ASPIRIN 81MG EC TABLET PO SCH ×2 (09:00→11:07)
[2019-03-24] MEDS: CARVEDILOL 12.5MG TABLET PO SCH ×2 (09:00→21:00)
[2019-03-24 09:18] LABS: BASOPHILS % 0.3 % (0.0-2.0); EOSINOPHILS % 1.5 % (0.0-5.0); HEMATOCRIT. 26.1 % (42.0-52.0); HEMOGLOBIN. 8.7 g/dL (14.0-18.0); LYMPHOCYTES % 19.4 % (20.0-50.0); MEAN CORPUSCULAR HEMOGLOBIN 33.5 pg (28.0-32.0); MEAN CORPUSCULAR VOLUME 100.5 fL (80.0-94.0); MEAN PLATELET VOLUME 9.3 fl (7.4-10.4); MONOCYTES % 8.2 % (2.0-8.0); NEUTROPHILS % 70.6 % (40.0-76.0); PLATELET 165 x1000/uL (130-400); RED BLOOD CELL COUNT 2.59 mill/uL (4.7-6.1); RED CELL DISTRIBUTION WIDTH 17.4 % (11.6-14.6)
[2019-03-24] MEDS: HEPARIN 5000 UNITS/ML VIAL SUBCUT SCH ×2 (11:08→21:00)
[2019-03-24] MEDS ORDERED: VANCOMYCIN 500 MG PREMIX 100 ML IV NR (20:00)
[2019-03-24] MEDS: ATORVASTATIN CALCIUM 20MG TABLET PO SCH (21:00)
[2019-03-25] VITALS (15 sets, daily range): BP systolic 106–175; BP diastolic 50–125
[2019-03-25] MEDS: GABAPENTIN 300MG CAPSULE PO SCH ×3 (05:54→21:15)
[2019-03-25] MEDS: LACTULOSE 20G/30ML UDC PO SCH ×3 (05:54→21:15)
[2019-03-25] MEDS: BLOOD SUGAR DIAGNOSTIC STRIP TEST SCH ×4 (07:30→21:37)
[2019-03-25 08:35] LABS: BASOPHILS % 0.2 % (0.0-2.0); EOSINOPHILS % 0.9 % (0.0-5.0); HEMATOCRIT. 26.8 % (42.0-52.0); LYMPHOCYTES % 16.3 % (20.0-50.0); MEAN CORPUSCULAR HEMOGLOBIN 33.4 pg (28.0-32.0); MEAN CORPUSCULAR VOLUME 99.7 fL (80.0-94.0); MEAN PLATELET VOLUME 9.2 fl (7.4-10.4); MONOCYTES % 9.3 % (2.0-8.0); NEUTROPHILS % 73.3 % (40.0-76.0); PLATELET 178 x1000/uL (130-400); RED BLOOD CELL COUNT 2.69 mill/uL (4.7-6.1)
[2019-03-25] MEDS: INSULIN LISPRO 100 UNITS/ML SUBCUT SCH ×4 (08:57→21:00)
[2019-03-25] MEDS: HEPARIN 5000 UNITS/ML VIAL SUBCUT SCH ×2 (08:57→21:16)
[2019-03-25] MEDS: ASPIRIN 81MG EC TABLET PO SCH (08:58)
[2019-03-25] MEDS: CARVEDILOL 12.5MG TABLET PO SCH ×2 (08:58→21:16)
[2019-03-25] MEDS: LISINOPRIL 20MG TABLET PO SCH ×2 (08:58→21:16)
[2019-03-25] MEDS: ATORVASTATIN CALCIUM 20MG TABLET PO SCH (21:16)
[2019-03-26] VITALS (12 sets, daily range): BP systolic 96–160; BP diastolic 47–98
[2019-03-26] MEDS: GABAPENTIN 300MG CAPSULE PO SCH ×3 (05:39→21:46)
[2019-03-26] MEDS: LACTULOSE 20G/30ML UDC PO SCH ×3 (05:39→21:43)
[2019-03-26 06:15] LABS: BASOPHILS % 0.3 % (0.0-2.0); EOSINOPHILS % 0.1 % (0.0-5.0); HEMATOCRIT. 26.9 % (42.0-52.0); LYMPHOCYTES % 11.3 % (20.0-50.0); MEAN CORPUSCULAR HEMOGLOBIN 33.6 pg (28.0-32.0); MEAN CORPUSCULAR VOLUME 100.8 fL (80.0-94.0); MEAN PLATELET VOLUME 9.1 fl (7.4-10.4); NEUTROPHILS % 82.3 % (40.0-76.0); PLATELET 166 x1000/uL (130-400); RED BLOOD CELL COUNT 2.67 mill/uL (4.7-6.1); RED CELL DISTRIBUTION WIDTH 17.2 % (11.6-14.6)
[2019-03-26] MEDS: ASPIRIN 81MG EC TABLET PO SCH (08:10)
[2019-03-26] MEDS: BLOOD SUGAR DIAGNOSTIC STRIP TEST SCH ×4 (08:11→21:43)
[2019-03-26] MEDS: HEPARIN 5000 UNITS/ML VIAL SUBCUT SCH ×2 (08:11→21:42)
[2019-03-26] MEDS: INSULIN LISPRO 100 UNITS/ML SUBCUT SCH ×4 (08:12→21:54)
[2019-03-26] MEDS: LISINOPRIL 20MG TABLET PO SCH (08:13)
[2019-03-26] MEDS: CARVEDILOL 12.5MG TABLET PO SCH (09:00)
[2019-03-26] MEDS ORDERED: PIPERACILLIN/TAZOBACTAM 2.25 G in DEXTROSE 5% WATER 50 ML IV SCH (14:00)
[2019-03-26] MEDS ORDERED: IPRATROPIUM/ALBUTEROL 0.5-3(2.5)MG/3ML NEB HHN PRN (16:00)
[2019-03-26] MEDS: LISINOPRIL 5MG TABLET PO SCH (21:00)
[2019-03-26] MEDS: CARVEDILOL 6.25 MG TABLET PO SCH (21:00)
[2019-03-26] MEDS: EPOETIN ALFA 4000UNITS/ML VIAL SUBCUT SCH (21:42)
[2019-03-26] MEDS: ATORVASTATIN CALCIUM 20MG TABLET PO SCH (21:43)
[2019-03-26] MEDS ORDERED: SODIUM CHLORIDE 0.9% IV NR (22:00)
[2019-03-26] MEDS ORDERED: AMIKACIN SULFATE IV NR (22:00)
[2019-03-26] MEDS: PIPERACILLIN/TAZOBACTAM 2.25 G in DEXTROSE 5% WATER 50 ML IV SCH (22:37)
[2019-03-27] VITALS (18 sets, daily range): BP systolic 108–143; BP diastolic 50–81
[2019-03-27] MEDS: IPRATROPIUM/ALBUTEROL 0.5-3(2.5)MG/3ML NEB HHN SCH ×3 (02:19→16:01)
[2019-03-27] MEDS: ACETYLCYSTEINE 100MG/ML 10% VIAL 4ML INH SCH ×2 (02:20→16:01)
[2019-03-27] MEDS: LACTULOSE 20G/30ML UDC PO SCH ×3 (06:02→22:22)
[2019-03-27] MEDS: GABAPENTIN 300MG CAPSULE PO SCH ×3 (06:02→22:23)
[2019-03-27 06:27] LABS: BASOPHILS % 0.4 % (0.0-2.0); EOSINOPHILS % 0.1 % (0.0-5.0); HEMOGLOBIN. 8.7 g/dL (14.0-18.0); LYMPHOCYTES % 9.1 % (20.0-50.0); MEAN CORPUSCULAR HEMOGLOBIN 33.8 pg (28.0-32.0); MEAN CORPUSCULAR VOLUME 101.5 fL (80.0-94.0); MEAN PLATELET VOLUME 9.7 fl (7.4-10.4); MONOCYTES % 5.3 % (2.0-8.0); NEUTROPHILS % 85.1 % (40.0-76.0); PLATELET 154 x1000/uL (130-400); RED BLOOD CELL COUNT 2.56 mill/uL (4.7-6.1); RED CELL DISTRIBUTION WIDTH 17.7 % (11.6-14.6)
[2019-03-27] MEDS: BLOOD SUGAR DIAGNOSTIC STRIP TEST SCH ×4 (08:14→21:00)
[2019-03-27] MEDS: INSULIN LISPRO 100 UNITS/ML SUBCUT SCH ×4 (08:43→22:25)
[2019-03-27] MEDS: PIPERACILLIN/TAZOBACTAM 2.25 G in DEXTROSE 5% WATER 50 ML IV SCH ×2 (08:44→22:24)
[2019-03-27] MEDS: CARVEDILOL 6.25 MG TABLET PO SCH ×2 (09:00→22:24)
[2019-03-27] MEDS: LISINOPRIL 5MG TABLET PO SCH ×2 (09:00→22:23)
[2019-03-27] MEDS: HEPARIN 5000 UNITS/ML VIAL SUBCUT SCH ×2 (10:15→22:24)
[2019-03-27] MEDS: ASPIRIN 81MG EC TABLET PO SCH (10:15)
[2019-03-27] MEDS: ATORVASTATIN CALCIUM 20MG TABLET PO SCH (22:23)
[2019-03-28] VITALS (9 sets, daily range): BP systolic 125–148; BP diastolic 54–73
[2019-03-28] MEDS: IPRATROPIUM/ALBUTEROL 0.5-3(2.5)MG/3ML NEB HHN SCH ×3 (00:43→14:51)
[2019-03-28] MEDS: ACETYLCYSTEINE 100MG/ML 10% VIAL 4ML INH SCH ×2 (00:43→14:51)
[2019-03-28] MEDS: LACTULOSE 20G/30ML UDC PO SCH ×2 (05:31→14:00)
[2019-03-28] MEDS: GABAPENTIN 300MG CAPSULE PO SCH ×2 (05:31→14:05)
[2019-03-28 07:36] LABS: BASOPHILS % 0.5 % (0.0-2.0); EOSINOPHILS % 1.7 % (0.0-5.0); HEMATOCRIT. 24.6 % (42.0-52.0); HEMOGLOBIN. 8.3 g/dL (14.0-18.0); MEAN CORPUSCULAR HEMOGLOBIN 33.9 pg (28.0-32.0); MEAN CORPUSCULAR VOLUME 100.6 fL (80.0-94.0); MEAN PLATELET VOLUME 9.8 fl (7.4-10.4); MONOCYTES % 6.9 % (2.0-8.0); NEUTROPHILS % 77.9 % (40.0-76.0); PLATELET 157 x1000/uL (130-400); RED BLOOD CELL COUNT 2.44 mill/uL (4.7-6.1); RED CELL DISTRIBUTION WIDTH 17.3 % (11.6-14.6)
[2019-03-28] MEDS: INSULIN LISPRO 100 UNITS/ML SUBCUT SCH ×2 (08:27→12:52)
[2019-03-28] MEDS: BLOOD SUGAR DIAGNOSTIC STRIP TEST SCH ×2 (08:27→12:16)
[2019-03-28] MEDS: LISINOPRIL 5MG TABLET PO SCH (09:00)
[2019-03-28] MEDS: CARVEDILOL 6.25 MG TABLET PO SCH (09:00)
[2019-03-28] MEDS: ASPIRIN 81MG EC TABLET PO SCH (11:12)
[2019-03-28] MEDS: HEPARIN 5000 UNITS/ML VIAL SUBCUT SCH (11:12)
[2019-03-28] MEDS: PIPERACILLIN/TAZOBACTAM 2.25 G in DEXTROSE 5% WATER 50 ML IV SCH (11:13)
[2019-03-28] MEDS: ACETAMINOPHEN 325MG TABLET PO PRN (11:21)
== END 2019-03-28 15:25 | DRG 853 ==
LOC: ER 10:36 → EDBEDREQSVC 03-17 07:33 → ENRESERV 03-17 15:53 → 6EST 03-17 16:20 → CVICU 03-19 18:50 → 5EST 03-23 00:56
PROVIDERS: ADMIT Internal Medicine Nephrology; ATTEND Internal Medicine Nephrology
PROC: 5A1D70Z Performance of Urinary Filtration, Intermittent, Less than 6 Hours Per Day (ICD-10-PCS; 2019-03-16)
PROC: 30233N1 Transfusion of Nonautologous Red Blood Cells into Peripheral Vein, Percutaneous Approach (ICD-10-PCS; 2019-03-19)
PROC: 5A1D70Z Performance of Urinary Filtration, Intermittent, Less than 6 Hours Per Day (ICD-10-PCS; 2019-03-19)
PROC: 5A1935Z Respiratory Ventilation, Less than 24 Consecutive Hours (ICD-10-PCS; 2019-03-19)
PROC: 0BH17EZ Insertion of Endotracheal Airway into Trachea, Via Natural or Artificial Opening (ICD-10-PCS; 2019-03-19)
PROC: 041M09L Bypass Right Popliteal Artery to Popliteal Artery with Autologous Venous Tissue, Open Approach (ICD-10-PCS; principal; 2019-03-20)
PROC: 04CM3ZZ Extirpation of Matter from Right Popliteal Artery, Percutaneous Approach (ICD-10-PCS; 2019-03-20)
PROC: 0JBQ3ZZ Excision of Right Foot Subcutaneous Tissue and Fascia, Percutaneous Approach (ICD-10-PCS; 2019-03-20)
PROC: 5A1D70Z Performance of Urinary Filtration, Intermittent, Less than 6 Hours Per Day (ICD-10-PCS; 2019-03-21)
PROC: 5A1D70Z Performance of Urinary Filtration, Intermittent, Less than 6 Hours Per Day (ICD-10-PCS; 2019-03-23)
DX: A41.9 Sepsis, unspecified organism (principal); N18.6 End stage renal disease; R65.21 Severe sepsis with septic shock; G93.41 Metabolic encephalopathy; J96.00 Acute respiratory failure, unspecified whether with hypoxia or hypercapnia; E11.52 Type 2 diabetes mellitus with diabetic peripheral angiopathy with gangrene; I13.11 Hypertensive heart and chronic kidney disease without heart failure, with stage 5 chronic kidney disease, or end stage renal disease; E46 Unspecified protein-calorie malnutrition; D62 Acute posthemorrhagic anemia; E72.20 Disorder of urea cycle metabolism, unspecified; J90 Pleural effusion, not elsewhere classified; L97.319 Non-pressure chronic ulcer of right ankle with unspecified severity; E11.622 Type 2 diabetes mellitus with other skin ulcer; D63.8 Anemia in other chronic diseases classified elsewhere; I87.2 Venous insufficiency (chronic) (peripheral); I25.10 Atherosclerotic heart disease of native coronary artery without angina pectoris; I70.201 Unspecified atherosclerosis of native arteries of extremities, right leg; E11.621 Type 2 diabetes mellitus with foot ulcer; E78.00 Pure hypercholesterolemia, unspecified; E78.5 Hyperlipidemia, unspecified; E87.6 Hypokalemia; I87.8 Other specified disorders of veins; L97.519 Non-pressure chronic ulcer of other part of right foot with unspecified severity; E11.22 Type 2 diabetes mellitus with diabetic chronic kidney disease; E66.9 Obesity, unspecified; S51.811A Laceration without foreign body of right forearm, initial encounter; X58.XXXA Exposure to other specified factors, initial encounter; G20 Parkinson's disease; I49.1 Atrial premature depolarization; Z79.4 Long term (current) use of insulin; Z79.82 Long term (current) use of aspirin; Z79.899 Other long term (current) drug therapy; Z85.46 Personal history of malignant neoplasm of prostate; Z87.891 Personal history of nicotine dependence; Z89.021 Acquired absence of right finger(s); Z92.21 Personal history of antineoplastic chemotherapy; Z99.2 Dependence on renal dialysis; Z91.041 Radiographic dye allergy status; Z68.20 Body mass index [BMI] 20.0-20.9, adult; Y93.89 Activity, other specified; Y92.89 Other specified places as the place of occurrence of the external cause; Y99.8 Other external cause status
CPT/HCPCS: 36415; 36600; 70551; 71045; 73700; 80048; 80053; 80150; 80202; 82140; 82375; 82550; 82607; 82805; 82962; 83036; 83735; 84134; 84439; 84443; 84478; 85025; 85027; 86850; 86900; 86920; 92610; 93005; 93970; 94002; 94003; 94640; 96365; 99285; J0278; J0330; J0885; J1644; J1815; J2250; J2270; J2405; J2440; J2543; J2597; J2704; J2710; J2765; J2795; J3010; J3370; J3490; J7040; J7050; J7060; J7608; P9016

== ENCOUNTER 2019-04-20 16:51 | Inpatient (IN) | payer MEDICARE, MEDICAID ==
[~2019-04-20] VITALS: Ht 172.7 cm; Wt 80.5 kg
[2019-04-20 16:30] VITALS: BP 145/72
[~2019-04-20 16:51] MED LIST changes: -INSLAN SQ; +norco
[2019-04-20 20:00] VITALS: BP 189/79
[2019-04-20] MEDS ORDERED: DEXTROSE 50% WATER 50ML SYRINGE IV PRN (20:00)
[2019-04-20] MEDS ORDERED: MORPHINE SULFATE 2 MG/ML CPJ (NOT FOR IM USE) IV PRN (20:15)
[2019-04-20] MEDS ORDERED: ACETAMINOPHEN 325MG TABLET PO PRN (20:15)
[2019-04-20] MEDS: CARVEDILOL 6.25 MG TABLET PO SCH ×2 (21:00→22:43)
[2019-04-20] MEDS: ATORVASTATIN CALCIUM 20MG TABLET PO SCH ×2 (21:00→22:43)
[2019-04-20] MEDS: ERGOCALCIFEROL 50000UNITS CAPSULE PO SCH ×2 (21:00→22:42)
[2019-04-20] MEDS: BLOOD SUGAR DIAGNOSTIC STRIP TEST SCH (21:00)
[2019-04-20] MEDS: GABAPENTIN 300MG CAPSULE PO SCH ×2 (21:00→22:42)
[2019-04-20 21:13] LABS: BASOPHILS % 0.6 % (0.0-2.0); CHLORIDE 99 mEq/L (98-107); EOSINOPHILS % 2.5 % (0.0-5.0); HEMOGLOBIN. 8.7 g/dL (14.0-18.0); LYMPHOCYTES % 13.8 % (20.0-50.0); MEAN CORPUSCULAR HEMOGLOBIN 31.9 pg (28.0-32.0); MEAN CORPUSCULAR VOLUME 98.7 fL (80.0-94.0); MEAN PLATELET VOLUME 8.8 fl (7.4-10.4); MONOCYTES % 9.8 % (2.0-8.0); NEUTROPHILS % 73.3 % (40.0-76.0); PLATELET 219 x1000/uL (130-400); RED BLOOD CELL COUNT 2.73 mill/uL (4.7-6.1); RED CELL DISTRIBUTION WIDTH 20.5 % (11.6-14.6)
[2019-04-20] MEDS: LACTULOSE 20G/30ML UDC PO SCH ×2 (22:00→22:42)
[2019-04-20] MEDS: HEPARIN 5000 UNITS/ML VIAL SUBCUT SCH (22:42)
[2019-04-20] MEDS: INSULIN LISPRO 100 UNITS/ML SUBCUT SCH (22:44)
[2019-04-20] MEDS: PIPERACILLIN/TAZOBACTAM 2.25 G in DEXTROSE 5% WATER 50 ML IV SCH (23:51)
[2019-04-21] VITALS: BP 158/64
[2019-04-21 04:00] VITALS: BP 158/56
[2019-04-21] MEDS: LACTULOSE 20G/30ML UDC PO SCH ×3 (06:56→22:04)
[2019-04-21] MEDS: BLOOD SUGAR DIAGNOSTIC STRIP TEST SCH ×4 (06:56→21:09)
[2019-04-21 08:00] VITALS: BP 166/73
[2019-04-21] MEDS: IPRATROPIUM/ALBUTEROL 0.5-3(2.5)MG/3ML NEB HHN SCH ×3 (08:04→22:04)
[2019-04-21] MEDS: INSULIN LISPRO 100 UNITS/ML SUBCUT SCH ×4 (08:10→21:16)
[2019-04-21] MEDS ORDERED: LISINOPRIL 5MG TABLET PO SCH (09:00)
[2019-04-21] MEDS: BACITRACIN 15GM TUBE TOP SCH (10:03)
[2019-04-21] MEDS: GABAPENTIN 300MG CAPSULE PO SCH ×2 (10:03→21:08)
[2019-04-21] MEDS: THIAMINE HCL 100MG TABLET PO SCH (10:04)
[2019-04-21] MEDS: ASPIRIN 81MG TABLET PO SCH (10:04)
[2019-04-21] MEDS: CARVEDILOL 6.25 MG TABLET PO SCH ×2 (10:04→21:00)
[2019-04-21] MEDS: HEPARIN 5000 UNITS/ML VIAL SUBCUT SCH ×2 (10:05→21:09)
[2019-04-21 12:00] VITALS: BP 148/79
[2019-04-21 16:00] VITALS: BP 134/58
[2019-04-21] MEDS: PIPERACILLIN/TAZOBACTAM 2.25 G in DEXTROSE 5% WATER 50 ML IV SCH ×2 (18:42→23:25)
[2019-04-21 20:00] VITALS: BP 101/52
[2019-04-21] MEDS: LISINOPRIL 10MG TABLET PO SCH (21:00)
[2019-04-22] VITALS: BP 159/66
[2019-04-22 00:05] VITALS: BP 159/66
[2019-04-22] MEDS: IPRATROPIUM/ALBUTEROL 0.5-3(2.5)MG/3ML NEB HHN SCH ×3 (03:49→21:59)
[2019-04-22 04:00] VITALS: BP 156/78
[2019-04-22] MEDS: LACTULOSE 20G/30ML UDC PO SCH ×3 (06:12→22:13)
[2019-04-22] MEDS: BLOOD SUGAR DIAGNOSTIC STRIP TEST SCH ×4 (07:40→21:57)
[2019-04-22 08:00] VITALS: BP 160/64
[2019-04-22] MEDS: INSULIN LISPRO 100 UNITS/ML SUBCUT SCH ×4 (08:10→21:00)
[2019-04-22 09:39] LABS: BASOPHILS % 0.6 % (0.0-2.0); HEMATOCRIT. 28.7 % (42.0-52.0); HEMOGLOBIN. 9.3 g/dL (14.0-18.0); LYMPHOCYTES % 13.8 % (20.0-50.0); MEAN CORPUSCULAR HEMOGLOBIN 32.5 pg (28.0-32.0); MEAN PLATELET VOLUME 8.9 fl (7.4-10.4); MONOCYTES % 8.1 % (2.0-8.0); NEUTROPHILS % 74.5 % (40.0-76.0); PLATELET 211 x1000/uL (130-400); RED BLOOD CELL COUNT 2.87 mill/uL (4.7-6.1)
[2019-04-22] MEDS: HEPARIN 5000 UNITS/ML VIAL SUBCUT SCH ×2 (09:52→22:14)
[2019-04-22] MEDS: CARVEDILOL 6.25 MG TABLET PO SCH ×2 (09:53→22:14)
[2019-04-22] MEDS: THIAMINE HCL 100MG TABLET PO SCH (09:53)
[2019-04-22] MEDS: LISINOPRIL 10MG TABLET PO SCH ×2 (09:53→22:14)
[2019-04-22] MEDS: ASPIRIN 81MG TABLET PO SCH (09:53)
[2019-04-22] MEDS: GABAPENTIN 300MG CAPSULE PO SCH ×2 (09:53→22:14)
[2019-04-22 10:01] LABS: PHOSPHORUS 4.2 mg/dL (2.5-4.9)
[2019-04-22] MEDS: BACITRACIN 15GM TUBE TOP SCH (10:23)
[2019-04-22] MEDS: PIPERACILLIN/TAZOBACTAM 2.25 G in DEXTROSE 5% WATER 50 ML IV SCH (10:24)
[2019-04-22] MEDS ORDERED: HEPARIN 100 UNITS/1 ML VIAL IVF PRN (12:30)
[2019-04-22] MEDS: NYSTATIN POWDER 15GM TOP SCH ×3 (15:39→17:57)
[2019-04-22 16:00] VITALS: BP 179/65
[2019-04-22 20:10] VITALS: BP 130/88
[2019-04-23] VITALS: BP 150/69
[2019-04-23] MEDS: IPRATROPIUM/ALBUTEROL 0.5-3(2.5)MG/3ML NEB HHN SCH ×5 (03:03→20:36)
[2019-04-23 04:00] VITALS: BP 124/58
[2019-04-23] MEDS: PIPERACILLIN/TAZOBACTAM 2.25 G in DEXTROSE 5% WATER 50 ML IV SCH ×3 (04:04→22:03)
[2019-04-23] MEDS: LACTULOSE 20G/30ML UDC PO SCH ×3 (06:00→21:41)
[2019-04-23] MEDS: BLOOD SUGAR DIAGNOSTIC STRIP TEST SCH ×4 (06:59→21:41)
[2019-04-23 08:00] VITALS: BP 116/50
[2019-04-23] MEDS: INSULIN LISPRO 100 UNITS/ML SUBCUT SCH ×4 (08:10→21:42)
[2019-04-23] MEDS: NYSTATIN POWDER 15GM TOP SCH (09:00)
[2019-04-23] MEDS: BACITRACIN 15GM TUBE TOP SCH (09:00)
[2019-04-23] MEDS: HEPARIN 5000 UNITS/ML VIAL SUBCUT SCH ×2 (10:42→21:40)
[2019-04-23] MEDS: GABAPENTIN 300MG CAPSULE PO SCH ×2 (10:43→21:46)
[2019-04-23] MEDS: LISINOPRIL 10MG TABLET PO SCH ×2 (10:44→21:00)
[2019-04-23] MEDS: THIAMINE HCL 100MG TABLET PO SCH (10:46)
[2019-04-23] MEDS: ASPIRIN 81MG TABLET PO SCH (10:47)
[2019-04-23] MEDS: CARVEDILOL 6.25 MG TABLET PO SCH ×2 (10:50→21:00)
[2019-04-23] MEDS: SODIUM HYPOCHLORITE (0.25%) 480ML SOLUTION (HALF STRENGTH) TOP SCH (10:51)
[2019-04-23 12:00] VITALS: BP 163/53
[2019-04-23 16:00] VITALS: BP 162/43
[2019-04-23] MEDS: OMEPRAZOLE 20MG CAPSULE EXTENDED RELEASE PO SCH (16:28)
[2019-04-23] MEDS: TERAZOSIN HCL 5MG CAPSULE PO SCH (16:28)
[2019-04-23 17:09] LABS: BG BASE EXCESS 0.4 mmol/L (-2.0-2.0); BG CARBOXYHEMOGLOBIN 0.3 % (0.5-1.5); BG DEOXYHEMOGLOBIN 1.3 % (0.0-5.0); BG FRACTION INSPIRED OXYGEN 40; BG HCO3 ACT 25.2 mmol/L (22.0-26.0); BG METHEMOGLOBIN 0.4 % (0.0-1.5); BG OXYGEN SATURATION 98.7 % (92.0-98.5); BG PH 7.406 (7.350-7.450); BG PO2 144.5 mmHg (75.0-100.0); BG SAMPLE SITE RIGHT BRACHIAL; BG TOTAL HEMOGLOBIN 10.4 g/dL (12.0-18.0); BG VENT MODE NASAL CANNULA
[2019-04-23 20:00] VITALS: BP 100/49
[2019-04-23] MEDS: ATORVASTATIN CALCIUM 20MG TABLET PO SCH (21:41)
[2019-04-23] MEDS: INSULIN GLARGINE UD 100 UNITS/ML SYR SUBCUT SCH (22:04)
[2019-04-24] VITALS: BP 101/50
[2019-04-24] MEDS: IPRATROPIUM/ALBUTEROL 0.5-3(2.5)MG/3ML NEB HHN SCH ×4 (02:26→20:45)
[2019-04-24 04:00] VITALS: BP 77/52
[2019-04-24] MEDS: LACTULOSE 20G/30ML UDC PO SCH ×2 (06:00→22:00)
[2019-04-24] MEDS: OMEPRAZOLE 20MG CAPSULE EXTENDED RELEASE PO SCH (07:40)
[2019-04-24 08:00] VITALS: BP 105/66
[2019-04-24] MEDS: INSULIN LISPRO 100 UNITS/ML SUBCUT SCH ×2 (08:10→21:37)
[2019-04-24] MEDS: BLOOD SUGAR DIAGNOSTIC STRIP TEST SCH ×2 (08:19→21:37)
[2019-04-24] MEDS: ASPIRIN 81MG TABLET PO SCH (09:00)
[2019-04-24] MEDS: GABAPENTIN 300MG CAPSULE PO SCH ×2 (09:00→22:45)
[2019-04-24] MEDS: TERAZOSIN HCL 5MG CAPSULE PO SCH (09:00)
[2019-04-24] MEDS: THIAMINE HCL 100MG TABLET PO SCH (09:00)
[2019-04-24] MEDS: CARVEDILOL 6.25 MG TABLET PO SCH ×2 (09:00→22:45)
[2019-04-24] MEDS: PIPERACILLIN/TAZOBACTAM 2.25 G in DEXTROSE 5% WATER 50 ML IV SCH ×2 (10:57→23:00)
[2019-04-24 12:00] VITALS: BP 147/44
[2019-04-24 12:54] LABS: BASOPHILS % 0.5 % (0.0-2.0); EOSINOPHILS % 3.1 % (0.0-5.0); HEMATOCRIT. 27.5 % (42.0-52.0); MEAN CORPUSCULAR HEMOGLOBIN 32.4 pg (28.0-32.0); MEAN CORPUSCULAR VOLUME 99.4 fL (80.0-94.0); MEAN PLATELET VOLUME 8.7 fl (7.4-10.4); MONOCYTES % 8.8 % (2.0-8.0); NEUTROPHILS % 69.6 % (40.0-76.0); PLATELET 181 x1000/uL (130-400); RED BLOOD CELL COUNT 2.76 mill/uL (4.7-6.1); RED CELL DISTRIBUTION WIDTH 20.9 % (11.6-14.6)
[2019-04-24] MEDS ORDERED: DEXT 5%/0.9% NACL 1,000 ML IV SCH (14:45)
[2019-04-24 16:00] VITALS: BP 140/56
[2019-04-24] MEDS ORDERED: VANCOMYCIN HCL 1 GM/VIAL ONE (17:15)
[2019-04-24] MEDS ORDERED: NORMAL SALINE 0.9% 10 ML SYR ONE (17:15)
[2019-04-24] MEDS ORDERED: BUPIVACAINE HCL 0.5% (5MG/ML) 50ML ONE (17:15)
[2019-04-24] MEDS ORDERED: BUPIVACAINE/EPINEPH/PF 0.25%/0.0005 10ML ONE (17:15)
[2019-04-24] MEDS ORDERED: SODIUM CHLORIDE 0.9% IRRIG SOL 1,000 ML IR ONE (17:16)
[2019-04-24] MEDS ORDERED: BACITRACIN 50,000 UNITS/VIAL ONE (17:16)
[2019-04-24] MEDS ORDERED: SODIUM CHLORIDE 0.9% IRRIG SOL 3,000 ML IR ONE (17:16)
[2019-04-24] MEDS ORDERED: FENTANYL CITRATE/PF 50MCG/ML 2ML VIAL ONE (19:13)
[2019-04-24] MEDS ORDERED: MIDAZOLAM HCL 2 MG/2 ML VIAL ONE (19:13)
[2019-04-24] MEDS ORDERED: PROPOFOL 200MG/20ML VIAL IV ONE (19:13)
[2019-04-24] MEDS ORDERED: SUCCINYLCHOLINE CHLORIDE 200MG/10ML IV ONE (19:14)
[2019-04-24] MEDS ORDERED: METOCLOPRAMIDE HCL 10MG/2ML VIAL ONE (19:14)
[2019-04-24] MEDS ORDERED: GLYCOPYRROLATE 0.2 MG/ML 2ML VIAL ONE (19:14)
[2019-04-24] MEDS ORDERED: ONDANSETRON HCL 4MG/2ML INJ ONE (19:14)
[2019-04-24] MEDS ORDERED: ALBUMIN HUMAN 12.5G/250ML (5%) IV ONE (19:55)
[2019-04-24] MEDS ORDERED: BUPIVACAINE HCL/PF 0.25% (2.5MG/ML) 10ML ONE (20:18)
[2019-04-24 20:19] LABS: T4 FREE 1.5 ng/dL (0.76-1.46)
[2019-04-24] MEDS ORDERED: ONDANSETRON HCL 4MG/2ML INJ IV PRN (20:30)
[2019-04-24] MEDS ORDERED: HYDROMORPHONE HCL/PF 2MG/ML CPJ IV PRN (20:30)
[2019-04-24] MEDS ORDERED: MORPHINE SULFATE 2 MG/ML CPJ (NOT FOR IM USE) IV PRN (20:30)
[2019-04-24] MEDS ORDERED: SODIUM CHLORIDE 0.9% 1,000 ML IV ONE (21:00)
[2019-04-24] MEDS: HEPARIN 5000 UNITS/ML VIAL SUBCUT SCH (21:41)
[2019-04-24 21:54] LABS: MEAN CORPUSCULAR HEMOGLOBIN 32.6 pg (28.0-32.0); MEAN CORPUSCULAR VOLUME 100.3 fL (80.0-94.0); PLATELET 140 x1000/uL (130-400); RED BLOOD CELL COUNT 2.09 mill/uL (4.7-6.1)
[2019-04-24 21:58] VITALS: BP 141/59
[2019-04-24] MEDS: INSULIN GLARGINE UD 100 UNITS/ML SYR SUBCUT SCH (22:00)
[2019-04-24 22:03] LABS: HEMOGLOBIN 6.8 g/dL (14.0-18.0)
[2019-04-24] MEDS: ATORVASTATIN CALCIUM 20MG TABLET PO SCH (22:45)
[2019-04-24] MEDS: HYDROCODONE/ACETAMINOPHEN 5/325MG TABLET PO PRN (22:51)
[2019-04-25] VITALS (10 sets, daily range): BP systolic 118–170; BP diastolic 45–79
[2019-04-25] MEDS: IPRATROPIUM/ALBUTEROL 0.5-3(2.5)MG/3ML NEB HHN SCH ×4 (02:31→21:44)
[2019-04-25] MEDS: LACTULOSE 20G/30ML UDC PO SCH ×3 (06:00→21:26)
[2019-04-25] MEDS: HYDROCODONE/ACETAMINOPHEN 5/325MG TABLET PO PRN ×2 (06:12→13:56)
[2019-04-25] MEDS: BLOOD SUGAR DIAGNOSTIC STRIP TEST SCH ×4 (06:22→21:00)
[2019-04-25 06:47] LABS: BASOPHILS % 0.5 % (0.0-2.0); EOSINOPHILS % 1.8 % (0.0-5.0); HEMATOCRIT. 24.6 % (42.0-52.0); LYMPHOCYTES % 12.2 % (20.0-50.0); MEAN CORPUSCULAR HEMOGLOBIN 31.8 pg (28.0-32.0); MEAN CORPUSCULAR VOLUME 97.4 fL (80.0-94.0); MEAN PLATELET VOLUME 8.9 fl (7.4-10.4); NEUTROPHILS % 77.5 % (40.0-76.0); PLATELET 164 x1000/uL (130-400); RED BLOOD CELL COUNT 2.53 mill/uL (4.7-6.1); RED CELL DISTRIBUTION WIDTH 20.7 % (11.6-14.6)
[2019-04-25] MEDS: FAMOTIDINE 20MG TABLET PO SCH (07:40)
[2019-04-25] MEDS: INSULIN LISPRO 100 UNITS/ML SUBCUT SCH ×4 (08:10→21:27)
[2019-04-25] MEDS: GABAPENTIN 300MG CAPSULE PO SCH ×2 (09:00→21:26)
[2019-04-25] MEDS: TERAZOSIN HCL 5MG CAPSULE PO SCH (09:00)
[2019-04-25] MEDS: HEPARIN 5000 UNITS/ML VIAL SUBCUT SCH ×2 (09:00→21:26)
[2019-04-25] MEDS: ASPIRIN 81MG TABLET PO SCH (09:00)
[2019-04-25] MEDS: BACITRACIN 15GM TUBE TOP SCH (09:00)
[2019-04-25] MEDS: CARVEDILOL 6.25 MG TABLET PO SCH ×2 (09:00→21:26)
[2019-04-25] MEDS: THIAMINE HCL 100MG TABLET PO SCH (09:00)
[2019-04-25] MEDS: PIPERACILLIN/TAZOBACTAM 2.25 G in DEXTROSE 5% WATER 50 ML IV SCH ×2 (11:42→23:00)
[2019-04-25] MEDS: MORPHINE SULFATE 2 MG/ML CPJ (NOT FOR IM USE) IV PRN (17:41)
[2019-04-25] MEDS ORDERED: MORPHINE SULFATE 2 MG/ML CPJ (NOT FOR IM USE) IV PRN (18:15)
[2019-04-25] MEDS: ATORVASTATIN CALCIUM 20MG TABLET PO SCH (21:26)
[2019-04-25] MEDS: INSULIN GLARGINE UD 100 UNITS/ML SYR SUBCUT SCH (21:28)
[2019-04-25] MEDS ORDERED: PREDNISONE 20MG TABLET PO NR (23:00)
[2019-04-26] VITALS: BP 106/55
[2019-04-26] MEDS: IPRATROPIUM/ALBUTEROL 0.5-3(2.5)MG/3ML NEB HHN SCH ×4 (01:30→21:40)
[2019-04-26 04:00] VITALS: BP 146/44
[2019-04-26] MEDS ORDERED: PREDNISONE 20MG TABLET PO NR ×3 (05:00→11:00)
[2019-04-26] MEDS: LACTULOSE 20G/30ML UDC PO SCH ×3 (05:50→21:08)
[2019-04-26 06:21] LABS: BASOPHILS % 0.2 % (0.0-2.0); EOSINOPHILS % 0.2 % (0.0-5.0); HEMATOCRIT. 25.6 % (42.0-52.0); HEMOGLOBIN. 8.2 g/dL (14.0-18.0); LYMPHOCYTES % 7.2 % (20.0-50.0); MEAN CORPUSCULAR HEMOGLOBIN 31.5 pg (28.0-32.0); MEAN CORPUSCULAR VOLUME 97.7 fL (80.0-94.0); MEAN PLATELET VOLUME 8.8 fl (7.4-10.4); MONOCYTES % 2.5 % (2.0-8.0); NEUTROPHILS % 89.9 % (40.0-76.0); PLATELET 178 x1000/uL (130-400); RED BLOOD CELL COUNT 2.61 mill/uL (4.7-6.1)
[2019-04-26] MEDS: BLOOD SUGAR DIAGNOSTIC STRIP TEST SCH ×4 (06:55→21:08)
[2019-04-26 08:00] VITALS: BP 185/73
[2019-04-26] MEDS: BACITRACIN 15GM TUBE TOP SCH (09:00)
[2019-04-26] MEDS: SODIUM HYPOCHLORITE (0.25%) 480ML SOLUTION (HALF STRENGTH) TOP SCH (09:00)
[2019-04-26] MEDS: TERAZOSIN HCL 5MG CAPSULE PO SCH (10:45)
[2019-04-26] MEDS: GABAPENTIN 300MG CAPSULE PO SCH ×2 (10:45→21:00)
[2019-04-26] MEDS: ASPIRIN 81MG TABLET PO SCH (10:46)
[2019-04-26] MEDS: THIAMINE HCL 100MG TABLET PO SCH (10:46)
[2019-04-26] MEDS: CLONIDINE 0.1MG TABLET PO PRN (10:46)
[2019-04-26] MEDS: FAMOTIDINE 20MG TABLET PO SCH (11:12)
[2019-04-26] MEDS: LISINOPRIL 40MG TABLET PO SCH (11:30)
[2019-04-26 12:01] VITALS: BP 170/66
[2019-04-26] MEDS ORDERED: IOHEXOL-350 100 ML BOTTLE ONE (13:55)
[2019-04-26] MEDS: PIPERACILLIN/TAZOBACTAM 2.25 G in DEXTROSE 5% WATER 50 ML IV SCH ×2 (14:08→23:47)
[2019-04-26 16:05] VITALS: BP 165/71
[2019-04-26] MEDS: MORPHINE SULFATE 2 MG/ML CPJ (NOT FOR IM USE) IV PRN (17:37)
[2019-04-26 20:00] VITALS: BP 138/50
[2019-04-26] MEDS: ATORVASTATIN CALCIUM 20MG TABLET PO SCH (21:00)
[2019-04-26] MEDS: INSULIN LISPRO 100 UNITS/ML SUBCUT SCH (21:00)
[2019-04-26] MEDS: CARVEDILOL 6.25 MG TABLET PO SCH (21:00)
[2019-04-26] MEDS: INSULIN GLARGINE UD 100 UNITS/ML SYR SUBCUT SCH (21:08)
[2019-04-26] MEDS: HEPARIN 5000 UNITS/ML VIAL SUBCUT SCH (21:33)
[2019-04-27] VITALS: BP 152/41
[2019-04-27] MEDS: IPRATROPIUM/ALBUTEROL 0.5-3(2.5)MG/3ML NEB HHN SCH ×4 (02:27→21:15)
[2019-04-27 04:00] VITALS: BP 158/51
[2019-04-27] MEDS: LACTULOSE 20G/30ML UDC PO SCH ×3 (06:00→22:02)
[2019-04-27] MEDS: BLOOD SUGAR DIAGNOSTIC STRIP TEST SCH ×3 (06:23→21:00)
[2019-04-27] MEDS ORDERED: FAMOTIDINE 20MG/2ML VIAL IV NR (07:00)
[2019-04-27] MEDS ORDERED: METHYLPREDNISOLONE SOD SUCC 125 MG/2 ML VIAL IV NR (07:00)
[2019-04-27 08:00] VITALS: BP 150/62
[2019-04-27] MEDS: INSULIN LISPRO 100 UNITS/ML SUBCUT SCH ×3 (08:10→22:06)
[2019-04-27] MEDS: SODIUM HYPOCHLORITE (0.25%) 480ML SOLUTION (HALF STRENGTH) TOP SCH ×3 (09:00→10:24)
[2019-04-27] MEDS: BACITRACIN 15GM TUBE TOP SCH ×2 (09:00→10:01)
[2019-04-27] MEDS: TERAZOSIN HCL 5MG CAPSULE PO SCH (09:55)
[2019-04-27] MEDS: THIAMINE HCL 100MG TABLET PO SCH (09:55)
[2019-04-27] MEDS: FAMOTIDINE 20MG TABLET PO SCH (09:56)
[2019-04-27] MEDS: CARVEDILOL 6.25 MG TABLET PO SCH ×2 (09:56→22:02)
[2019-04-27] MEDS: LISINOPRIL 40MG TABLET PO SCH (09:56)
[2019-04-27] MEDS: ASPIRIN 81MG TABLET PO SCH (09:56)
[2019-04-27] MEDS: GABAPENTIN 300MG CAPSULE PO SCH ×2 (09:59→22:02)
[2019-04-27] MEDS ORDERED: HEPARIN SODIUM 1,000 UNIT/1ML VIAL IV ONE (10:25)
[2019-04-27 11:38] VITALS: BP 130/54
[2019-04-27] MEDS ORDERED: DIPHENHYDRAMINE 50MG/ML VIAL IV NR (12:00)
[2019-04-27 12:01] LABS: BASOPHILS % 0.2 % (0.0-2.0); HEMATOCRIT. 23.3 % (42.0-52.0); HEMOGLOBIN. 7.7 g/dL (14.0-18.0); LYMPHOCYTES % 9.1 % (20.0-50.0); MEAN CORPUSCULAR HEMOGLOBIN 32.4 pg (28.0-32.0); MEAN CORPUSCULAR VOLUME 98.1 fL (80.0-94.0); MEAN PLATELET VOLUME 9.3 fl (7.4-10.4); MONOCYTES % 5.1 % (2.0-8.0); NEUTROPHILS % 85.6 % (40.0-76.0); PLATELET 183 x1000/uL (130-400); RED BLOOD CELL COUNT 2.38 mill/uL (4.7-6.1); RED CELL DISTRIBUTION WIDTH 21.7 % (11.6-14.6)
[2019-04-27] MEDS: PIPERACILLIN/TAZOBACTAM 2.25 G in DEXTROSE 5% WATER 50 ML IV SCH (12:36)
[2019-04-27] MEDS ORDERED: FENTANYL CITRATE/PF 50MCG/ML 2ML VIAL ONE (15:10)
[2019-04-27] MEDS ORDERED: MIDAZOLAM HCL 2 MG/2 ML VIAL ONE (15:10)
[2019-04-27] MEDS ORDERED: IODIXANOL 320MG/ML 100 ML BOTTLE IV ONE (15:11)
[2019-04-27] MEDS ORDERED: IOHEXOL-300 100 ML BOTTLE ONE (15:11)
[2019-04-27] MEDS ORDERED: LIDOCAINE HCL 1% 20ML VIAL (Pyxis) INJ ONE (15:11)
[2019-04-27] MEDS ORDERED: IODIXANOL 320MG/ML 200ML BOTTLE ONE (16:18)
[2019-04-27] MEDS ORDERED: CLOPIDOGREL 75MG TABLET ONE (16:57)
[2019-04-27] MEDS ORDERED: ASPIRIN 325MG EC TABLET PO ONE (16:57)
[2019-04-27] MEDS ORDERED: ONDANSETRON HCL 4MG/2ML INJ IV PRN (17:00)
[2019-04-27] MEDS ORDERED: ATROPINE SULFATE 1MG/10ML SYR IV PRN (17:00)
[2019-04-27] MEDS ORDERED: ACETAMINOPHEN 325MG TABLET PO PRN (17:00)
[2019-04-27 18:46] LABS: VITAMIN B12 SERUM >2000 pg/mL pg/mL (211-911)
[2019-04-27] MEDS: MORPHINE SULFATE 2 MG/ML CPJ (NOT FOR IM USE) IV PRN (20:17)
[2019-04-27] MEDS: CLONIDINE 0.1MG TABLET PO PRN (20:22)
[2019-04-27 21:40] VITALS: BP 131/101
[2019-04-27] MEDS: ATORVASTATIN CALCIUM 20MG TABLET PO SCH (22:01)
[2019-04-27] MEDS: INSULIN GLARGINE UD 100 UNITS/ML SYR SUBCUT SCH (22:06)
[2019-04-27 23:00] VITALS: BP 141/37
[2019-04-28] VITALS (11 sets, daily range): BP systolic 98–150; BP diastolic 26–112
[2019-04-28] MEDS: IPRATROPIUM/ALBUTEROL 0.5-3(2.5)MG/3ML NEB HHN SCH ×3 (01:31→20:34)
[2019-04-28] MEDS: LACTULOSE 20G/30ML UDC PO SCH ×3 (05:58→21:47)
[2019-04-28] MEDS: FAMOTIDINE 20MG TABLET PO SCH (06:13)
[2019-04-28] MEDS: BLOOD SUGAR DIAGNOSTIC STRIP TEST SCH ×4 (06:40→21:00)
[2019-04-28] MEDS: INSULIN LISPRO 100 UNITS/ML SUBCUT SCH ×4 (06:45→21:00)
[2019-04-28 07:38] LABS: BASOPHILS % 0.1 % (0.0-2.0); HEMATOCRIT. 25.2 % (42.0-52.0); HEMOGLOBIN. 8.2 g/dL (14.0-18.0); LYMPHOCYTES % 11.8 % (20.0-50.0); MEAN CORPUSCULAR VOLUME 98.8 fL (80.0-94.0); MEAN PLATELET VOLUME 9.5 fl (7.4-10.4); MONOCYTES % 3.9 % (2.0-8.0); NEUTROPHILS % 84.2 % (40.0-76.0); PLATELET 186 x1000/uL (130-400); RED BLOOD CELL COUNT 2.55 mill/uL (4.7-6.1); RED CELL DISTRIBUTION WIDTH 22.1 % (11.6-14.6)
[2019-04-28] MEDS: NYSTATIN POWDER 15GM TOP SCH ×3 (09:00→17:00)
[2019-04-28] MEDS: ASPIRIN 325MG TABLET PO SCH (09:16)
[2019-04-28] MEDS: GABAPENTIN 300MG CAPSULE PO SCH ×2 (09:16→21:47)
[2019-04-28] MEDS: CLOPIDOGREL 75MG TABLET PO SCH (09:16)
[2019-04-28] MEDS: LISINOPRIL 40MG TABLET PO SCH (09:17)
[2019-04-28] MEDS: TERAZOSIN HCL 5MG CAPSULE PO SCH (09:17)
[2019-04-28] MEDS: THIAMINE HCL 100MG TABLET PO SCH (09:18)
[2019-04-28] MEDS: CARVEDILOL 6.25 MG TABLET PO SCH ×2 (09:18→21:46)
[2019-04-28] MEDS: MORPHINE SULFATE 2 MG/ML CPJ (NOT FOR IM USE) IV PRN ×2 (09:33→15:05)
[2019-04-28 19:33] LABS: PLATELET ESTIMATE NORMAL
[2019-04-28] MEDS: ATORVASTATIN CALCIUM 20MG TABLET PO SCH (21:47)
[2019-04-28] MEDS: INSULIN GLARGINE UD 100 UNITS/ML SYR SUBCUT SCH (22:48)
[2019-04-29] VITALS (12 sets, daily range): BP systolic 95–147; BP diastolic 41–76
[2019-04-29] MEDS: IPRATROPIUM/ALBUTEROL 0.5-3(2.5)MG/3ML NEB HHN SCH ×4 (02:27→20:49)
[2019-04-29] MEDS: BLOOD SUGAR DIAGNOSTIC STRIP TEST SCH ×4 (06:18→20:15)
[2019-04-29] MEDS: LACTULOSE 20G/30ML UDC PO SCH ×3 (06:25→22:00)
[2019-04-29] MEDS: FAMOTIDINE 20MG TABLET PO SCH (06:25)
[2019-04-29 06:59] LABS: BASOPHILS % 0.2 % (0.0-2.0); EOSINOPHILS % 0.3 % (0.0-5.0); HEMATOCRIT. 23.5 % (42.0-52.0); HEMOGLOBIN. 7.8 g/dL (14.0-18.0); LYMPHOCYTES % 18.5 % (20.0-50.0); MEAN CORPUSCULAR HEMOGLOBIN 32.6 pg (28.0-32.0); MEAN CORPUSCULAR VOLUME 97.9 fL (80.0-94.0); MONOCYTES % 6.1 % (2.0-8.0); NEUTROPHILS % 74.9 % (40.0-76.0); PLATELET 185 x1000/uL (130-400); RED CELL DISTRIBUTION WIDTH 22.6 % (11.6-14.6)
[2019-04-29] MEDS: INSULIN LISPRO 100 UNITS/ML SUBCUT SCH ×4 (07:20→20:53)
[2019-04-29] MEDS: SODIUM HYPOCHLORITE (0.25%) 480ML SOLUTION (HALF STRENGTH) TOP SCH ×2 (09:00→17:05)
[2019-04-29] MEDS: BACITRACIN 15GM TUBE TOP SCH ×2 (09:00→17:05)
[2019-04-29] MEDS: ASPIRIN 325MG TABLET PO SCH (11:51)
[2019-04-29] MEDS: LISINOPRIL 40MG TABLET PO SCH (11:51)
[2019-04-29] MEDS: THIAMINE HCL 100MG TABLET PO SCH (11:52)
[2019-04-29] MEDS: CARVEDILOL 6.25 MG TABLET PO SCH ×2 (11:52→20:15)
[2019-04-29] MEDS: CLOPIDOGREL 75MG TABLET PO SCH (11:52)
[2019-04-29] MEDS: TERAZOSIN HCL 5MG CAPSULE PO SCH (11:53)
[2019-04-29] MEDS: GABAPENTIN 300MG CAPSULE PO SCH ×2 (11:53→20:14)
[2019-04-29] MEDS: NYSTATIN POWDER 15GM TOP SCH ×3 (13:00→17:05)
[2019-04-29] MEDS: MORPHINE SULFATE 2 MG/ML CPJ (NOT FOR IM USE) IV PRN (14:18)
[2019-04-29] MEDS: ATORVASTATIN CALCIUM 20MG TABLET PO SCH (20:15)
[2019-04-29] MEDS: INSULIN GLARGINE UD 100 UNITS/ML SYR SUBCUT SCH (23:08)
[2019-04-30] VITALS (13 sets, daily range): BP systolic 122–175; BP diastolic 52–94
[2019-04-30] MEDS: IPRATROPIUM/ALBUTEROL 0.5-3(2.5)MG/3ML NEB HHN SCH ×4 (02:26→19:57)
[2019-04-30] MEDS: FAMOTIDINE 20MG TABLET PO SCH (06:12)
[2019-04-30] MEDS: LACTULOSE 20G/30ML UDC PO SCH ×3 (06:13→20:27)
[2019-04-30] MEDS: BLOOD SUGAR DIAGNOSTIC STRIP TEST SCH ×4 (06:13→20:38)
[2019-04-30 06:32] LABS: BASOPHILS % 0.1 % (0.0-2.0); EOSINOPHILS % 0.2 % (0.0-5.0); HEMATOCRIT. 21.7 % (42.0-52.0); HEMOGLOBIN. 7.1 g/dL (14.0-18.0); LYMPHOCYTES % 17.8 % (20.0-50.0); MEAN CORPUSCULAR HEMOGLOBIN 32.2 pg (28.0-32.0); MEAN CORPUSCULAR VOLUME 98.3 fL (80.0-94.0); MEAN PLATELET VOLUME 9.1 fl (7.4-10.4); MONOCYTES % 8.4 % (2.0-8.0); NEUTROPHILS % 73.5 % (40.0-76.0); PLATELET 177 x1000/uL (130-400); RED BLOOD CELL COUNT 2.21 mill/uL (4.7-6.1); RED CELL DISTRIBUTION WIDTH 22.5 % (11.6-14.6)
[2019-04-30] MEDS: INSULIN LISPRO 100 UNITS/ML SUBCUT SCH ×4 (07:20→20:30)
[2019-04-30] MEDS: TERAZOSIN HCL 5MG CAPSULE PO SCH (08:50)
[2019-04-30] MEDS: LISINOPRIL 40MG TABLET PO SCH (08:50)
[2019-04-30] MEDS: CLOPIDOGREL 75MG TABLET PO SCH (08:50)
[2019-04-30] MEDS: GABAPENTIN 300MG CAPSULE PO SCH ×2 (08:50→20:28)
[2019-04-30] MEDS: THIAMINE HCL 100MG TABLET PO SCH (08:50)
[2019-04-30] MEDS: SODIUM HYPOCHLORITE (0.25%) 480ML SOLUTION (HALF STRENGTH) TOP SCH (08:51)
[2019-04-30] MEDS: ASPIRIN 325MG TABLET PO SCH (08:51)
[2019-04-30] MEDS: NYSTATIN POWDER 15GM TOP SCH ×3 (08:51→16:59)
[2019-04-30] MEDS: CARVEDILOL 6.25 MG TABLET PO SCH (08:51)
[2019-04-30] MEDS: BACITRACIN 15GM TUBE TOP SCH (09:00)
[2019-04-30] MEDS: ATORVASTATIN CALCIUM 20MG TABLET PO SCH (20:28)
[2019-04-30] MEDS: CARVEDILOL 12.5MG TABLET PO SCH (20:28)
[2019-04-30] MEDS: INSULIN GLARGINE UD 100 UNITS/ML SYR SUBCUT SCH (20:38)
[2019-05-01] VITALS: BP 116/63
[2019-05-01] MEDS: IPRATROPIUM/ALBUTEROL 0.5-3(2.5)MG/3ML NEB HHN SCH ×4 (01:28→21:11)
[2019-05-01 04:00] VITALS: BP 122/65
[2019-05-01] MEDS: LACTULOSE 20G/30ML UDC PO SCH ×3 (06:00→21:31)
[2019-05-01 06:25] LABS: CHLORIDE 108 mEq/L (98-107)
[2019-05-01] MEDS: BLOOD SUGAR DIAGNOSTIC STRIP TEST SCH ×4 (06:36→21:35)
[2019-05-01] MEDS: INSULIN LISPRO 100 UNITS/ML SUBCUT SCH ×4 (06:37→21:34)
[2019-05-01] MEDS: FAMOTIDINE 20MG TABLET PO SCH (06:37)
[2019-05-01 06:58] LABS: BASOPHILS % 0.1 % (0.0-2.0); EOSINOPHILS % 1.2 % (0.0-5.0); HEMATOCRIT. 26.2 % (42.0-52.0); HEMOGLOBIN. 8.6 g/dL (14.0-18.0); LYMPHOCYTES % 13.5 % (20.0-50.0); MEAN CORPUSCULAR HEMOGLOBIN 31.5 pg (28.0-32.0); MEAN CORPUSCULAR VOLUME 96.3 fL (80.0-94.0); MEAN PLATELET VOLUME 8.9 fl (7.4-10.4); NEUTROPHILS % 79.2 % (40.0-76.0); PLATELET 175 x1000/uL (130-400); RED BLOOD CELL COUNT 2.72 mill/uL (4.7-6.1); RED CELL DISTRIBUTION WIDTH 22.4 % (11.6-14.6)
[2019-05-01 08:00] VITALS: BP 141/78
[2019-05-01] MEDS: ASPIRIN 325MG TABLET PO SCH (09:05)
[2019-05-01] MEDS: CARVEDILOL 12.5MG TABLET PO SCH ×2 (09:05→21:31)
[2019-05-01] MEDS: LISINOPRIL 40MG TABLET PO SCH (09:06)
[2019-05-01] MEDS: NYSTATIN POWDER 15GM TOP SCH ×3 (09:06→17:53)
[2019-05-01] MEDS: TERAZOSIN HCL 5MG CAPSULE PO SCH (09:06)
[2019-05-01] MEDS: SODIUM HYPOCHLORITE (0.25%) 480ML SOLUTION (HALF STRENGTH) TOP SCH (09:06)
[2019-05-01] MEDS: THIAMINE HCL 100MG TABLET PO SCH (09:06)
[2019-05-01] MEDS: GABAPENTIN 300MG CAPSULE PO SCH ×2 (09:06→21:32)
[2019-05-01] MEDS: CLOPIDOGREL 75MG TABLET PO SCH (09:06)
[2019-05-01] MEDS: BACITRACIN 15GM TUBE TOP SCH (09:06)
[2019-05-01 12:00] VITALS: BP 132/69
[2019-05-01 16:00] VITALS: BP 130/51
[2019-05-01 20:00] VITALS: BP 155/53
[2019-05-01] MEDS: ATORVASTATIN CALCIUM 20MG TABLET PO SCH (21:31)
[2019-05-01] MEDS: INSULIN GLARGINE UD 100 UNITS/ML SYR SUBCUT SCH (21:34)
[2019-05-02] VITALS: BP 150/72
[2019-05-02 04:00] VITALS: BP 145/59
[2019-05-02] MEDS: IPRATROPIUM/ALBUTEROL 0.5-3(2.5)MG/3ML NEB HHN SCH ×3 (05:17→13:19)
[2019-05-02] MEDS: FAMOTIDINE 20MG TABLET PO SCH (06:01)
[2019-05-02] MEDS: BLOOD SUGAR DIAGNOSTIC STRIP TEST SCH (06:02)
[2019-05-02] MEDS: LACTULOSE 20G/30ML UDC PO SCH (06:02)
[2019-05-02 06:45] LABS: BASOPHILS % 0.2 % (0.0-2.0); EOSINOPHILS % 3.7 % (0.0-5.0); HEMATOCRIT. 25.9 % (42.0-52.0); HEMOGLOBIN. 8.6 g/dL (14.0-18.0); LYMPHOCYTES % 14.2 % (20.0-50.0); MEAN CORPUSCULAR HEMOGLOBIN 31.8 pg (28.0-32.0); MEAN PLATELET VOLUME 9.3 fl (7.4-10.4); NEUTROPHILS % 74.9 % (40.0-76.0); PLATELET 179 x1000/uL (130-400); RED CELL DISTRIBUTION WIDTH 23.1 % (11.6-14.6)
[2019-05-02] MEDS: INSULIN LISPRO 100 UNITS/ML SUBCUT SCH (07:20)
[2019-05-02 08:00] VITALS: BP 144/89
[2019-05-02] MEDS: THIAMINE HCL 100MG TABLET PO SCH (09:09)
[2019-05-02] MEDS: TERAZOSIN HCL 5MG CAPSULE PO SCH (09:10)
[2019-05-02] MEDS: SODIUM HYPOCHLORITE (0.25%) 480ML SOLUTION (HALF STRENGTH) TOP SCH (09:12)
[2019-05-02] MEDS: LISINOPRIL 40MG TABLET PO SCH (09:12)
[2019-05-02] MEDS: ASPIRIN 325MG TABLET PO SCH (09:12)
[2019-05-02] MEDS: NYSTATIN POWDER 15GM TOP SCH (09:12)
[2019-05-02] MEDS: BACITRACIN 15GM TUBE TOP SCH (09:12)
[2019-05-02] MEDS: GABAPENTIN 300MG CAPSULE PO SCH (09:12)
[2019-05-02] MEDS: CLOPIDOGREL 75MG TABLET PO SCH (09:12)
[2019-05-02] MEDS: CARVEDILOL 12.5MG TABLET PO SCH (09:13)
[2019-05-02 10:51] VITALS: BP 132/59
[2019-05-02] MEDS ORDERED: CLONIDINE 0.1MG TABLET PO SCH (14:00)
== END 2019-05-02 13:00 | DRG 474 ==
LOC: 7WST 16:51 → 3WST 04-27 18:00
PROVIDERS: ADMIT Internal Medicine Nephrology; ATTEND Internal Medicine Nephrology
PROC: 05HY33Z Insertion of Infusion Device into Upper Vein, Percutaneous Approach (ICD-10-PCS; 2019-04-22)
PROC: B51M1ZA Fluoroscopy of Right Upper Extremity Veins using Low Osmolar Contrast, Guidance (ICD-10-PCS; 2019-04-22)
PROC: B54MZZA Ultrasonography of Right Upper Extremity Veins, Guidance (ICD-10-PCS; 2019-04-22)
PROC: 0Y6C0Z3 Detachment at Right Upper Leg, Low, Open Approach (ICD-10-PCS; principal; 2019-04-24)
PROC: 30233N1 Transfusion of Nonautologous Red Blood Cells into Peripheral Vein, Percutaneous Approach (ICD-10-PCS; 2019-04-25)
PROC: 047L3DZ Dilation of Left Femoral Artery with Intraluminal Device, Percutaneous Approach (ICD-10-PCS; 2019-04-27)
PROC: 047N3ZZ Dilation of Left Popliteal Artery, Percutaneous Approach (ICD-10-PCS; 2019-04-27)
PROC: B41G1ZZ Fluoroscopy of Left Lower Extremity Arteries using Low Osmolar Contrast (ICD-10-PCS; 2019-04-27)
PROC: 5A1D70Z Performance of Urinary Filtration, Intermittent, Less than 6 Hours Per Day (ICD-10-PCS; 2019-04-27)
PROC: 5A1D70Z Performance of Urinary Filtration, Intermittent, Less than 6 Hours Per Day (ICD-10-PCS; 2019-04-27)
DX: T87.43 Infection of amputation stump, right lower extremity (principal); E43 Unspecified severe protein-calorie malnutrition; N18.6 End stage renal disease; G92 Toxic encephalopathy; T82.898A Other specified complication of vascular prosthetic devices, implants and grafts, initial encounter; E11.52 Type 2 diabetes mellitus with diabetic peripheral angiopathy with gangrene; I13.11 Hypertensive heart and chronic kidney disease without heart failure, with stage 5 chronic kidney disease, or end stage renal disease; I47.2 Ventricular tachycardia; D62 Acute posthemorrhagic anemia; L97.519 Non-pressure chronic ulcer of other part of right foot with unspecified severity; E11.22 Type 2 diabetes mellitus with diabetic chronic kidney disease; D63.8 Anemia in other chronic diseases classified elsewhere; E11.621 Type 2 diabetes mellitus with foot ulcer; E78.5 Hyperlipidemia, unspecified; I25.10 Atherosclerotic heart disease of native coronary artery without angina pectoris; I70.202 Unspecified atherosclerosis of native arteries of extremities, left leg; C61 Malignant neoplasm of prostate; D50.9 Iron deficiency anemia, unspecified; K21.9 Gastro-esophageal reflux disease without esophagitis; R00.1 Bradycardia, unspecified; E78.00 Pure hypercholesterolemia, unspecified; I99.8 Other disorder of circulatory system; L89.156 Pressure-induced deep tissue damage of sacral region; R23.4 Changes in skin texture; I87.2 Venous insufficiency (chronic) (peripheral); I95.9 Hypotension, unspecified; Y83.5 Amputation of limb(s) as the cause of abnormal reaction of the patient, or of later complication, without mention of misadventure at the time of the procedure; N40.0 Benign prostatic hyperplasia without lower urinary tract symptoms; Z79.02 Long term (current) use of antithrombotics/antiplatelets; Z79.4 Long term (current) use of insulin; Z99.2 Dependence on renal dialysis; Z92.21 Personal history of antineoplastic chemotherapy; Z89.021 Acquired absence of right finger(s); Z87.891 Personal history of nicotine dependence; Z79.82 Long term (current) use of aspirin; Z79.899 Other long term (current) drug therapy; Z91.041 Radiographic dye allergy status; Z68.27 Body mass index [BMI] 27.0-27.9, adult; Y92.89 Other specified places as the place of occurrence of the external cause
CPT/HCPCS: 36415; 36573; 36600; 37226; 70551; 72191; 73552; 73706; 75710; 76937; 80048; 80053; 82140; 82270; 82375; 82607; 82728; 82746; 82805; 82962; 83036; 83540; 83550; 83735; 84100; 84134; 84439; 84443; 84481; 85025; 85027; 85347; 86850; 86900; 86920; 88307; 88311; 92523; 92610; 93005; 93971; 94640; 97110; 97162; 97164; 97166; 97530; A6261; C1725; C1760; C1769; C1876; C1887; C1893; C1894; J0171; J0330; J1200; J1642; J1644; J1815; J2250; J2270; J2405; J2543; J2704; J2765; J2930; J3010; J3370; J3490; J7040; J7042; J7060; J7512; P9016; P9041; Q9967

== ENCOUNTER 2019-05-02 13:15 | Inpatient (IN) | payer MEDICARE, MEDICAID ==
[~2019-05-02] VITALS: Ht 172.7 cm; Wt 87.5 kg
[~2019-05-02 13:15] MED LIST changes: -norco
[2019-05-02] MEDS ORDERED: DEXTROSE 50% WATER 50ML SYRINGE IV PRN (14:00)
[2019-05-02] MEDS: LACTULOSE 20G/30ML UDC PO SCH ×2 (14:00→21:58)
[2019-05-02] MEDS ORDERED: CLONIDINE 0.1MG TABLET PO PRN (14:00)
[2019-05-02] MEDS ORDERED: ONDANSETRON 4MG ODT PO PRN (14:00)
[2019-05-02] MEDS ORDERED: HEPARIN 100 UNITS/1 ML VIAL IVF PRN (14:00)
[2019-05-02 14:37] VITALS: BP 140/64
[2019-05-02 14:53] VITALS: BP 140/64
[2019-05-02] MEDS: INSULIN LISPRO 100 UNITS/ML SUBCUT SCH ×2 (16:51→20:51)
[2019-05-02] MEDS: NYSTATIN POWDER 15GM TOP SCH (17:00)
[2019-05-02] MEDS: BLOOD SUGAR DIAGNOSTIC STRIP TEST SCH ×2 (17:05→20:34)
[2019-05-02] MEDS: GABAPENTIN 300MG CAPSULE PO SCH (17:32)
[2019-05-02 20:00] VITALS: BP 162/57
[2019-05-02] MEDS: CARVEDILOL 12.5MG TABLET PO SCH (20:34)
[2019-05-02] MEDS: ATORVASTATIN CALCIUM 20MG TABLET PO SCH (20:34)
[2019-05-02] MEDS: IPRATROPIUM/ALBUTEROL 0.5-3(2.5)MG/3ML NEB HHN SCH (20:53)
[2019-05-02] MEDS: INSULIN GLARGINE UD 100 UNITS/ML SYR SUBCUT SCH (22:41)
[2019-05-03] MEDS: IPRATROPIUM/ALBUTEROL 0.5-3(2.5)MG/3ML NEB HHN SCH ×4 (02:34→21:13)
[2019-05-03] MEDS: BLOOD SUGAR DIAGNOSTIC STRIP TEST SCH ×4 (05:47→21:00)
[2019-05-03] MEDS: LACTULOSE 20G/30ML UDC PO SCH ×3 (05:47→22:39)
[2019-05-03] MEDS: FAMOTIDINE 20MG TABLET PO SCH (05:47)
[2019-05-03] MEDS: GABAPENTIN 300MG CAPSULE PO SCH ×2 (05:47→17:28)
[2019-05-03] MEDS: INSULIN LISPRO 100 UNITS/ML SUBCUT SCH ×4 (06:50→22:53)
[2019-05-03 07:55] VITALS: BP 158/49
[2019-05-03 07:58] LABS: BASOPHILS % 0.3 % (0.0-2.0); EOSINOPHILS % 3.4 % (0.0-5.0); HEMATOCRIT. 27.6 % (42.0-52.0); HEMOGLOBIN. 9.4 g/dL (14.0-18.0); LYMPHOCYTES % 16.7 % (20.0-50.0); MEAN CORPUSCULAR HEMOGLOBIN 33.1 pg (28.0-32.0); MEAN PLATELET VOLUME 9.4 fl (7.4-10.4); MONOCYTES % 9.8 % (2.0-8.0); NEUTROPHILS % 69.8 % (40.0-76.0); PLATELET 178 x1000/uL (130-400); RED BLOOD CELL COUNT 2.84 mill/uL (4.7-6.1); RED CELL DISTRIBUTION WIDTH 22.1 % (11.6-14.6)
[2019-05-03] MEDS: TERAZOSIN HCL 5MG CAPSULE PO SCH (08:47)
[2019-05-03] MEDS: ASPIRIN 325MG TABLET PO SCH (08:47)
[2019-05-03] MEDS: CLOPIDOGREL 75MG TABLET PO SCH (08:47)
[2019-05-03] MEDS: THIAMINE HCL 100MG TABLET PO SCH (08:48)
[2019-05-03] MEDS: CARVEDILOL 12.5MG TABLET PO SCH (08:48)
[2019-05-03] MEDS: BACITRACIN 15GM TUBE TOP SCH (08:48)
[2019-05-03] MEDS: NYSTATIN POWDER 15GM TOP SCH ×3 (08:49→17:04)
[2019-05-03] MEDS: SODIUM HYPOCHLORITE (0.25%) 480ML SOLUTION (HALF STRENGTH) TOP SCH (08:49)
[2019-05-03] MEDS ORDERED: LISINOPRIL 40MG TABLET PO SCH (09:00)
[2019-05-03 11:00] VITALS: BP 80/45
[2019-05-03 11:33] VITALS: BP 134/75
[2019-05-03 13:12] VITALS: BP 169/73
[2019-05-03] MEDS ORDERED: NYSTATIN POWDER 15GM TOP SCH (16:00)
[2019-05-03 20:00] VITALS: BP 95/53
[2019-05-03] MEDS: ACETAMINOPHEN 650MG/20.3ML UDC PO PRN (20:03)
[2019-05-03] MEDS: CARVEDILOL 6.25 MG TABLET PO SCH (22:39)
[2019-05-03] MEDS: ATORVASTATIN CALCIUM 20MG TABLET PO SCH (22:39)
[2019-05-03] MEDS: INSULIN GLARGINE UD 100 UNITS/ML SYR SUBCUT SCH (22:53)
[2019-05-04] MEDS: IPRATROPIUM/ALBUTEROL 0.5-3(2.5)MG/3ML NEB HHN SCH ×4 (02:08→21:32)
[2019-05-04] MEDS: BLOOD SUGAR DIAGNOSTIC STRIP TEST SCH ×4 (06:36→21:50)
[2019-05-04] MEDS: GABAPENTIN 300MG CAPSULE PO SCH ×2 (06:36→18:00)
[2019-05-04] MEDS: FAMOTIDINE 20MG TABLET PO SCH (06:36)
[2019-05-04] MEDS: LACTULOSE 20G/30ML UDC PO SCH ×3 (06:36→22:00)
[2019-05-04] MEDS: INSULIN LISPRO 100 UNITS/ML SUBCUT SCH ×4 (07:37→21:00)
[2019-05-04 07:53] VITALS: BP 137/53
[2019-05-04 08:09] VITALS: BP 137/53
[2019-05-04] MEDS: CLOPIDOGREL 75MG TABLET PO SCH (08:44)
[2019-05-04] MEDS: THIAMINE HCL 100MG TABLET PO SCH (08:45)
[2019-05-04] MEDS: CARVEDILOL 6.25 MG TABLET PO SCH ×2 (08:45→21:51)
[2019-05-04] MEDS: ASPIRIN 325MG TABLET PO SCH (08:45)
[2019-05-04] MEDS: NYSTATIN POWDER 15GM TOP SCH ×3 (08:45→17:04)
[2019-05-04] MEDS: BACITRACIN 15GM TUBE TOP SCH (09:00)
[2019-05-04] MEDS: LISINOPRIL 10MG TABLET PO SCH (09:00)
[2019-05-04] MEDS ORDERED: LISINOPRIL 20MG TABLET PO SCH (09:00)
[2019-05-04] MEDS: TERAZOSIN HCL 5MG CAPSULE PO SCH (09:00)
[2019-05-04] MEDS: ACETAMINOPHEN 650MG/20.3ML UDC PO PRN (10:29)
[2019-05-04] MEDS: SODIUM HYPOCHLORITE (0.25%) 480ML SOLUTION (HALF STRENGTH) TOP SCH (13:32)
[2019-05-04 14:47] LABS: CHLORIDE 112 mEq/L (98-107)
[2019-05-04 14:51] LABS: BASOPHILS % 0.6 % (0.0-2.0); EOSINOPHILS % 1.6 % (0.0-5.0); HEMATOCRIT. 25.5 % (42.0-52.0); HEMOGLOBIN. 8.5 g/dL (14.0-18.0); LYMPHOCYTES % 18.2 % (20.0-50.0); MEAN CORPUSCULAR HEMOGLOBIN 33.2 pg (28.0-32.0); MEAN CORPUSCULAR VOLUME 98.9 fL (80.0-94.0); MEAN PLATELET VOLUME 9.1 fl (7.4-10.4); MONOCYTES % 12.4 % (2.0-8.0); NEUTROPHILS % 67.2 % (40.0-76.0); PLATELET 170 x1000/uL (130-400); RED BLOOD CELL COUNT 2.58 mill/uL (4.7-6.1); RED CELL DISTRIBUTION WIDTH 22.8 % (11.6-14.6)
[2019-05-04 14:54] LABS: PHOSPHORUS 3.6 mg/dL (2.5-4.9)
[2019-05-04 14:55] LABS: TOTAL IRON BINDING CAPACITY 119 ug/dL (250-450)
[2019-05-04 15:22] LABS: VITAMIN B12 SERUM > 2000.0 pg/mL (211-911)
[2019-05-04 20:00] VITALS: BP 166/57
[2019-05-04] MEDS: ATORVASTATIN CALCIUM 20MG TABLET PO SCH (21:50)
[2019-05-04] MEDS: INSULIN GLARGINE UD 100 UNITS/ML SYR SUBCUT SCH (22:00)
[2019-05-05] MEDS: LACTULOSE 20G/30ML UDC PO SCH ×3 (06:00→21:58)
[2019-05-05] MEDS: BLOOD SUGAR DIAGNOSTIC STRIP TEST SCH ×4 (06:15→21:06)
[2019-05-05] MEDS: FAMOTIDINE 20MG TABLET PO SCH (06:15)
[2019-05-05] MEDS: GABAPENTIN 300MG CAPSULE PO SCH ×2 (06:15→18:13)
[2019-05-05 08:00] VITALS: BP 160/91
[2019-05-05] MEDS: INSULIN LISPRO 100 UNITS/ML SUBCUT SCH ×4 (09:00→21:00)
[2019-05-05] MEDS: IPRATROPIUM/ALBUTEROL 0.5-3(2.5)MG/3ML NEB HHN SCH ×3 (09:14→21:58)
[2019-05-05 09:20] LABS: BASOPHILS % 0.4 % (0.0-2.0); EOSINOPHILS % 2.3 % (0.0-5.0); HEMATOCRIT. 25.6 % (42.0-52.0); HEMOGLOBIN. 8.6 g/dL (14.0-18.0); MEAN CORPUSCULAR HEMOGLOBIN 32.8 pg (28.0-32.0); MEAN CORPUSCULAR VOLUME 97.7 fL (80.0-94.0); MEAN PLATELET VOLUME 9.1 fl (7.4-10.4); NEUTROPHILS % 67.3 % (40.0-76.0); PLATELET 187 x1000/uL (130-400); RED BLOOD CELL COUNT 2.62 mill/uL (4.7-6.1)
[2019-05-05 09:39] LABS: CHLORIDE 100 mEq/L (98-107)
[2019-05-05] MEDS: ASPIRIN 325MG TABLET PO SCH (09:44)
[2019-05-05] MEDS: THIAMINE HCL 100MG TABLET PO SCH (09:45)
[2019-05-05] MEDS: FOLIC ACID 1MG TABLET PO SCH (09:45)
[2019-05-05] MEDS: CLOPIDOGREL 75MG TABLET PO SCH (09:45)
[2019-05-05] MEDS: LISINOPRIL 10MG TABLET PO SCH (09:46)
[2019-05-05] MEDS: CARVEDILOL 6.25 MG TABLET PO SCH ×2 (09:47→21:00)
[2019-05-05] MEDS: TERAZOSIN HCL 5MG CAPSULE PO SCH (09:47)
[2019-05-05] MEDS: BACITRACIN 15GM TUBE TOP SCH (09:48)
[2019-05-05] MEDS: SODIUM HYPOCHLORITE (0.25%) 480ML SOLUTION (HALF STRENGTH) TOP SCH (09:48)
[2019-05-05] MEDS: NYSTATIN POWDER 15GM TOP SCH ×3 (09:48→18:21)
[2019-05-05] MEDS: ACETAMINOPHEN 650MG/20.3ML UDC PO PRN (15:30)
[2019-05-05 19:10] VITALS: BP 108/88
[2019-05-05 20:00] VITALS: BP 177/53
[2019-05-05] MEDS: INSULIN GLARGINE UD 100 UNITS/ML SYR SUBCUT SCH (21:30)
[2019-05-05] MEDS: ATORVASTATIN CALCIUM 20MG TABLET PO SCH (21:58)
[2019-05-06] MEDS: IPRATROPIUM/ALBUTEROL 0.5-3(2.5)MG/3ML NEB HHN SCH ×4 (02:44→20:32)
[2019-05-06] MEDS: FAMOTIDINE 20MG TABLET PO SCH (06:17)
[2019-05-06] MEDS: GABAPENTIN 300MG CAPSULE PO SCH ×2 (06:17→18:00)
[2019-05-06] MEDS: INSULIN LISPRO 100 UNITS/ML SUBCUT SCH ×4 (06:17→21:00)
[2019-05-06] MEDS: BLOOD SUGAR DIAGNOSTIC STRIP TEST SCH ×4 (06:17→21:00)
[2019-05-06] MEDS: LACTULOSE 20G/30ML UDC PO SCH (06:17)
[2019-05-06 08:00] VITALS: BP 190/65
[2019-05-06] MEDS ORDERED: LISINOPRIL 10MG TABLET PO SCH (09:00)
[2019-05-06] MEDS: ASPIRIN 325MG TABLET PO SCH (09:02)
[2019-05-06] MEDS: BACITRACIN 15GM TUBE TOP SCH (09:02)
[2019-05-06] MEDS: NYSTATIN POWDER 15GM TOP SCH ×3 (09:02→18:23)
[2019-05-06] MEDS: SODIUM HYPOCHLORITE (0.25%) 480ML SOLUTION (HALF STRENGTH) TOP SCH (09:02)
[2019-05-06] MEDS: CLOPIDOGREL 75MG TABLET PO SCH (09:03)
[2019-05-06] MEDS: TERAZOSIN HCL 5MG CAPSULE PO SCH (09:03)
[2019-05-06] MEDS: FOLIC ACID 1MG TABLET PO SCH (09:03)
[2019-05-06] MEDS: CARVEDILOL 6.25 MG TABLET PO SCH ×2 (09:04→20:27)
[2019-05-06] MEDS: THIAMINE HCL 100MG TABLET PO SCH (09:04)
[2019-05-06] MEDS ORDERED: LACTULOSE 20G/30ML UDC PO PRN (17:15)
[2019-05-06 20:00] VITALS: BP 154/61
[2019-05-06] MEDS: ATORVASTATIN CALCIUM 20MG TABLET PO SCH (20:26)
[2019-05-06] MEDS: LISINOPRIL 20MG TABLET PO SCH (20:26)
[2019-05-06] MEDS: ACETAMINOPHEN 650MG/20.3ML UDC PO PRN (20:28)
[2019-05-06] MEDS: INSULIN GLARGINE UD 100 UNITS/ML SYR SUBCUT SCH (22:49)
[2019-05-07] MEDS: IPRATROPIUM/ALBUTEROL 0.5-3(2.5)MG/3ML NEB HHN SCH ×4 (01:19→22:22)
[2019-05-07] MEDS: BLOOD SUGAR DIAGNOSTIC STRIP TEST SCH ×4 (06:00→21:37)
[2019-05-07] MEDS: FAMOTIDINE 20MG TABLET PO SCH (06:24)
[2019-05-07] MEDS: GABAPENTIN 300MG CAPSULE PO SCH ×2 (06:24→17:14)
[2019-05-07 07:12] LABS: T4 FREE 1.1 ng/dL (0.76-1.46)
[2019-05-07 07:53] VITALS: BP 131/71
[2019-05-07] MEDS: TERAZOSIN HCL 5MG CAPSULE PO SCH (08:52)
[2019-05-07] MEDS: CARVEDILOL 6.25 MG TABLET PO SCH ×2 (08:52→20:45)
[2019-05-07] MEDS: THIAMINE HCL 100MG TABLET PO SCH (08:52)
[2019-05-07] MEDS: FOLIC ACID 1MG TABLET PO SCH (08:53)
[2019-05-07] MEDS: ASPIRIN 325MG TABLET PO SCH (08:53)
[2019-05-07] MEDS: LISINOPRIL 20MG TABLET PO SCH ×2 (08:53→20:45)
[2019-05-07] MEDS: INSULIN LISPRO 100 UNITS/ML SUBCUT SCH ×4 (08:54→22:50)
[2019-05-07] MEDS: CLOPIDOGREL 75MG TABLET PO SCH (08:57)
[2019-05-07] MEDS: NYSTATIN POWDER 15GM TOP SCH ×3 (08:58→17:14)
[2019-05-07] MEDS: BACITRACIN 15GM TUBE TOP SCH (08:58)
[2019-05-07] MEDS: ACETAMINOPHEN 650MG/20.3ML UDC PO PRN (08:59)
[2019-05-07] MEDS: SODIUM HYPOCHLORITE (0.25%) 480ML SOLUTION (HALF STRENGTH) TOP SCH (09:00)
[2019-05-07 09:50] VITALS: BP 121/46
[2019-05-07 15:35] VITALS: BP 146/42
[2019-05-07] MEDS: OXYCODONE HCL 5MG TABLET PO PRN (15:45)
[2019-05-07 20:00] VITALS: BP 152/50
[2019-05-07] MEDS: ATORVASTATIN CALCIUM 20MG TABLET PO SCH (20:44)
[2019-05-07] MEDS: INSULIN GLARGINE UD 100 UNITS/ML SYR SUBCUT SCH (22:51)
[2019-05-08] MEDS: IPRATROPIUM/ALBUTEROL 0.5-3(2.5)MG/3ML NEB HHN SCH ×4 (03:24→20:17)
[2019-05-08] MEDS: GABAPENTIN 300MG CAPSULE PO SCH ×2 (06:03→17:11)
[2019-05-08] MEDS: FAMOTIDINE 20MG TABLET PO SCH (06:03)
[2019-05-08] MEDS: INSULIN LISPRO 100 UNITS/ML SUBCUT SCH ×4 (06:09→21:55)
[2019-05-08] MEDS: BLOOD SUGAR DIAGNOSTIC STRIP TEST SCH ×4 (06:09→21:47)
[2019-05-08 06:59] LABS: BASOPHILS % 0.6 % (0.0-2.0); HEMATOCRIT. 24.4 % (42.0-52.0); HEMOGLOBIN. 8.3 g/dL (14.0-18.0); LYMPHOCYTES % 26.3 % (20.0-50.0); MEAN CORPUSCULAR HEMOGLOBIN 33.1 pg (28.0-32.0); MEAN CORPUSCULAR VOLUME 97.1 fL (80.0-94.0); MONOCYTES % 10.8 % (2.0-8.0); NEUTROPHILS % 59.3 % (40.0-76.0); PLATELET 174 x1000/uL (130-400); RED BLOOD CELL COUNT 2.51 mill/uL (4.7-6.1); RED CELL DISTRIBUTION WIDTH 22.1 % (11.6-14.6)
[2019-05-08] MEDS: OXYCODONE HCL 5MG TABLET PO PRN (07:35)
[2019-05-08 07:48] VITALS: BP 148/54
[2019-05-08] MEDS: ASPIRIN 325MG TABLET PO SCH (09:49)
[2019-05-08] MEDS: TERAZOSIN HCL 5MG CAPSULE PO SCH (09:49)
[2019-05-08] MEDS: THIAMINE HCL 100MG TABLET PO SCH (09:49)
[2019-05-08] MEDS: CARVEDILOL 6.25 MG TABLET PO SCH ×2 (09:49→21:00)
[2019-05-08] MEDS: CLOPIDOGREL 75MG TABLET PO SCH (09:49)
[2019-05-08] MEDS: LISINOPRIL 20MG TABLET PO SCH ×2 (09:49→21:00)
[2019-05-08] MEDS: FOLIC ACID 1MG TABLET PO SCH (09:49)
[2019-05-08] MEDS: BACITRACIN 15GM TUBE TOP SCH (09:50)
[2019-05-08] MEDS: NYSTATIN POWDER 15GM TOP SCH ×3 (09:50→16:45)
[2019-05-08] MEDS ORDERED: LIDOCAINE HCL/EPINEPHRINE 1%-EPI 1:100,000 20 ML VIAL INFIL NR (10:30)
[2019-05-08] MEDS: HYDROCODONE/ACETAMINOPHEN 5/325MG TABLET PO PRN (12:46)
[2019-05-08 20:00] VITALS: BP 153/50
[2019-05-08] MEDS: ATORVASTATIN CALCIUM 20MG TABLET PO SCH (21:10)
[2019-05-08] MEDS: INSULIN GLARGINE UD 100 UNITS/ML SYR SUBCUT SCH (21:55)
[2019-05-09] MEDS: IPRATROPIUM/ALBUTEROL 0.5-3(2.5)MG/3ML NEB HHN SCH ×4 (03:04→20:03)
[2019-05-09] MEDS: FAMOTIDINE 20MG TABLET PO SCH (06:05)
[2019-05-09] MEDS: GABAPENTIN 300MG CAPSULE PO SCH ×2 (06:05→17:02)
[2019-05-09] MEDS: BLOOD SUGAR DIAGNOSTIC STRIP TEST SCH ×4 (06:12→21:52)
[2019-05-09] MEDS: INSULIN LISPRO 100 UNITS/ML SUBCUT SCH ×4 (06:12→21:00)
[2019-05-09 08:05] VITALS: BP 120/60
[2019-05-09] MEDS: LISINOPRIL 20MG TABLET PO SCH ×2 (08:27→21:43)
[2019-05-09] MEDS: CLOPIDOGREL 75MG TABLET PO SCH (08:27)
[2019-05-09] MEDS: ASPIRIN 325MG TABLET PO SCH (08:27)
[2019-05-09] MEDS: FOLIC ACID 1MG TABLET PO SCH (08:27)
[2019-05-09] MEDS: TERAZOSIN HCL 5MG CAPSULE PO SCH (08:27)
[2019-05-09] MEDS: CARVEDILOL 6.25 MG TABLET PO SCH ×2 (08:27→21:44)
[2019-05-09] MEDS: THIAMINE HCL 100MG TABLET PO SCH (08:27)
[2019-05-09] MEDS: OXYCODONE HCL 5MG TABLET PO PRN (08:28)
[2019-05-09] MEDS: BACITRACIN 15GM TUBE TOP SCH (08:30)
[2019-05-09] MEDS: NYSTATIN POWDER 15GM TOP SCH ×3 (08:30→17:05)
[2019-05-09 16:28] LABS: PROSTRATE SPECIFIC AG TOTAL 0.31 ng/mL (0.0-4.0)
[2019-05-09 17:32] LABS: FERRITIN 3216 ng/mL (22-322)
[2019-05-09 20:00] VITALS: BP 153/98
[2019-05-09] MEDS: ATORVASTATIN CALCIUM 20MG TABLET PO SCH (21:43)
[2019-05-09] MEDS: INSULIN GLARGINE UD 100 UNITS/ML SYR SUBCUT SCH (22:25)
[2019-05-10] MEDS: IPRATROPIUM/ALBUTEROL 0.5-3(2.5)MG/3ML NEB HHN SCH ×4 (02:16→20:16)
[2019-05-10] MEDS: BLOOD SUGAR DIAGNOSTIC STRIP TEST SCH ×4 (05:57→20:51)
[2019-05-10] MEDS: FAMOTIDINE 20MG TABLET PO SCH (06:11)
[2019-05-10] MEDS: GABAPENTIN 300MG CAPSULE PO SCH ×2 (06:11→18:25)
[2019-05-10 06:51] LABS: BASOPHILS % 0.8 % (0.0-2.0); EOSINOPHILS % 3.5 % (0.0-5.0); HEMATOCRIT. 26.9 % (42.0-52.0); HEMOGLOBIN. 8.9 g/dL (14.0-18.0); LYMPHOCYTES % 23.9 % (20.0-50.0); MEAN CORPUSCULAR HEMOGLOBIN 32.3 pg (28.0-32.0); MEAN CORPUSCULAR VOLUME 97.7 fL (80.0-94.0); MEAN PLATELET VOLUME 8.9 fl (7.4-10.4); MONOCYTES % 11.3 % (2.0-8.0); NEUTROPHILS % 60.5 % (40.0-76.0); PLATELET 175 x1000/uL (130-400); RED BLOOD CELL COUNT 2.75 mill/uL (4.7-6.1); RED CELL DISTRIBUTION WIDTH 22.4 % (11.6-14.6)
[2019-05-10 08:16] VITALS: BP 171/46
[2019-05-10] MEDS: INSULIN LISPRO 100 UNITS/ML SUBCUT SCH ×4 (09:00→21:56)
[2019-05-10] MEDS: BACITRACIN 15GM TUBE TOP SCH (09:20)
[2019-05-10] MEDS: FOLIC ACID 1MG TABLET PO SCH (09:21)
[2019-05-10] MEDS: ASPIRIN 325MG TABLET PO SCH (09:21)
[2019-05-10] MEDS: NYSTATIN POWDER 15GM TOP SCH ×3 (09:21→16:29)
[2019-05-10] MEDS: CLOPIDOGREL 75MG TABLET PO SCH (09:21)
[2019-05-10] MEDS: THIAMINE HCL 100MG TABLET PO SCH (09:21)
[2019-05-10] MEDS: LISINOPRIL 20MG TABLET PO SCH ×2 (09:22→20:40)
[2019-05-10] MEDS: CARVEDILOL 6.25 MG TABLET PO SCH ×2 (09:22→20:40)
[2019-05-10] MEDS: TERAZOSIN HCL 5MG CAPSULE PO SCH (09:22)
[2019-05-10 17:09] LABS: HEPATITIS B SURFACE ANTIGEN NEGATIVE
[2019-05-10 17:39] LABS: HEPATITIS A AB IGM NEGATIVE (NEGATIVE)
[2019-05-10 19:09] LABS: 25-HYDROXY VITAMIN D3 8.8 ng/mL (.)
[2019-05-10 20:00] VITALS: BP 133/60
[2019-05-10] MEDS ORDERED: ERGOCALCIFEROL 50000UNITS CAPSULE PO SCH (20:00)
[2019-05-10] MEDS: ATORVASTATIN CALCIUM 20MG TABLET PO SCH (20:40)
[2019-05-10] MEDS: INSULIN GLARGINE UD 100 UNITS/ML SYR SUBCUT SCH (21:56)
[2019-05-10] MEDS: HYDROCODONE/ACETAMINOPHEN 5/325MG TABLET PO PRN (23:40)
[2019-05-11] MEDS: IPRATROPIUM/ALBUTEROL 0.5-3(2.5)MG/3ML NEB HHN SCH ×4 (03:04→22:30)
[2019-05-11] MEDS: GABAPENTIN 300MG CAPSULE PO SCH ×2 (04:15→06:01)
[2019-05-11] MEDS: FAMOTIDINE 20MG TABLET PO SCH (06:02)
[2019-05-11] MEDS: LEVOTHYROXINE SODIUM 75MCG TABLET PO SCH (06:03)
[2019-05-11] MEDS: BLOOD SUGAR DIAGNOSTIC STRIP TEST SCH ×4 (06:03→20:41)
[2019-05-11] MEDS: INSULIN LISPRO 100 UNITS/ML SUBCUT SCH ×4 (07:28→20:41)
[2019-05-11] MEDS: TERAZOSIN HCL 5MG CAPSULE PO SCH (08:24)
[2019-05-11] MEDS: THIAMINE HCL 100MG TABLET PO SCH (08:24)
[2019-05-11] MEDS: ASPIRIN 325MG TABLET PO SCH (08:24)
[2019-05-11] MEDS: LISINOPRIL 20MG TABLET PO SCH ×2 (08:25→20:34)
[2019-05-11] MEDS: CARVEDILOL 6.25 MG TABLET PO SCH ×2 (08:25→20:33)
[2019-05-11] MEDS: NYSTATIN POWDER 15GM TOP SCH ×3 (08:25→17:00)
[2019-05-11] MEDS: BACITRACIN 15GM TUBE TOP SCH (08:25)
[2019-05-11] MEDS: FOLIC ACID 1MG TABLET PO SCH (08:25)
[2019-05-11] MEDS: CLOPIDOGREL 75MG TABLET PO SCH (08:25)
[2019-05-11 08:33] VITALS: BP 156/42
[2019-05-11 20:00] VITALS: BP 163/52
[2019-05-11] MEDS: ATORVASTATIN CALCIUM 20MG TABLET PO SCH (20:33)
[2019-05-11] MEDS: INSULIN GLARGINE UD 100 UNITS/ML SYR SUBCUT SCH (21:46)
[2019-05-12] MEDS: IPRATROPIUM/ALBUTEROL 0.5-3(2.5)MG/3ML NEB HHN SCH ×4 (04:15→21:12)
[2019-05-12] MEDS: GABAPENTIN 300MG CAPSULE PO SCH ×2 (05:37→17:24)
[2019-05-12] MEDS: BLOOD SUGAR DIAGNOSTIC STRIP TEST SCH ×4 (05:44→21:00)
[2019-05-12 06:00] VITALS: BP 140/65
[2019-05-12] MEDS: LEVOTHYROXINE SODIUM 75MCG TABLET PO SCH (06:03)
[2019-05-12] MEDS: FAMOTIDINE 20MG TABLET PO SCH (06:03)
[2019-05-12 08:14] VITALS: BP 146/34
[2019-05-12] MEDS: INSULIN LISPRO 100 UNITS/ML SUBCUT SCH ×4 (09:00→22:07)
[2019-05-12] MEDS: TERAZOSIN HCL 5MG CAPSULE PO SCH (09:21)
[2019-05-12] MEDS: FOLIC ACID 1MG TABLET PO SCH (09:21)
[2019-05-12] MEDS: LISINOPRIL 20MG TABLET PO SCH ×2 (09:21→21:00)
[2019-05-12] MEDS: CLOPIDOGREL 75MG TABLET PO SCH (09:22)
[2019-05-12] MEDS: ASPIRIN 325MG TABLET PO SCH (09:22)
[2019-05-12] MEDS: OXYCODONE HCL 5MG TABLET PO PRN (09:22)
[2019-05-12] MEDS: CARVEDILOL 6.25 MG TABLET PO SCH ×2 (09:22→21:00)
[2019-05-12] MEDS: THIAMINE HCL 100MG TABLET PO SCH (09:22)
[2019-05-12] MEDS: NYSTATIN POWDER 15GM TOP SCH ×3 (09:23→17:24)
[2019-05-12] MEDS: BACITRACIN 15GM TUBE TOP SCH (09:23)
[2019-05-12 20:00] VITALS: BP 94/67
[2019-05-12] MEDS: ATORVASTATIN CALCIUM 20MG TABLET PO SCH (22:01)
[2019-05-12] MEDS: INSULIN GLARGINE UD 100 UNITS/ML SYR SUBCUT SCH (22:21)
[2019-05-13] MEDS: IPRATROPIUM/ALBUTEROL 0.5-3(2.5)MG/3ML NEB HHN SCH ×2 (01:29→07:36)
[2019-05-13] MEDS: LEVOTHYROXINE SODIUM 75MCG TABLET PO SCH (06:04)
[2019-05-13] MEDS: FAMOTIDINE 20MG TABLET PO SCH (06:04)
[2019-05-13] MEDS: GABAPENTIN 300MG CAPSULE PO SCH (06:04)
[2019-05-13] MEDS: BLOOD SUGAR DIAGNOSTIC STRIP TEST SCH ×2 (06:04→11:39)
[2019-05-13] MEDS: INSULIN LISPRO 100 UNITS/ML SUBCUT SCH ×2 (06:13→12:33)
[2019-05-13 08:00] VITALS: BP 124/48
[2019-05-13] MEDS: FOLIC ACID 1MG TABLET PO SCH (08:56)
[2019-05-13] MEDS: TERAZOSIN HCL 5MG CAPSULE PO SCH (08:57)
[2019-05-13] MEDS: CARVEDILOL 6.25 MG TABLET PO SCH (08:57)
[2019-05-13] MEDS: ASPIRIN 325MG TABLET PO SCH (08:57)
[2019-05-13] MEDS: CLOPIDOGREL 75MG TABLET PO SCH (08:57)
[2019-05-13] MEDS: LISINOPRIL 20MG TABLET PO SCH (08:58)
[2019-05-13] MEDS: THIAMINE HCL 100MG TABLET PO SCH (08:58)
[2019-05-13] MEDS: NYSTATIN POWDER 15GM TOP SCH ×2 (09:00→12:34)
[2019-05-13] MEDS: BACITRACIN 15GM TUBE TOP SCH (09:00)
[2019-05-13 12:09] VITALS: BP 124/48
== END 2019-05-13 15:35 | disposition home health service (06) | DRG 299 ==
PROVIDERS: ADMIT Physical Medicine & Rehabilitation Spinal Cord Injury Medicine; ATTEND Internal Medicine Nephrology
DX: E11.52 Type 2 diabetes mellitus with diabetic peripheral angiopathy with gangrene (principal); G92 Toxic encephalopathy; A41.9 Sepsis, unspecified organism; N18.6 End stage renal disease; E46 Unspecified protein-calorie malnutrition; L97.919 Non-pressure chronic ulcer of unspecified part of right lower leg with unspecified severity; I12.0 Hypertensive chronic kidney disease with stage 5 chronic kidney disease or end stage renal disease; E11.22 Type 2 diabetes mellitus with diabetic chronic kidney disease; E78.5 Hyperlipidemia, unspecified; D64.9 Anemia, unspecified; K21.9 Gastro-esophageal reflux disease without esophagitis; I25.10 Atherosclerotic heart disease of native coronary artery without angina pectoris; N40.0 Benign prostatic hyperplasia without lower urinary tract symptoms; G54.6 Phantom limb syndrome with pain; F09 Unspecified mental disorder due to known physiological condition; F39 Unspecified mood [affective] disorder; Z79.02 Long term (current) use of antithrombotics/antiplatelets; Z79.4 Long term (current) use of insulin; Z79.82 Long term (current) use of aspirin; Z79.899 Other long term (current) drug therapy; Z85.46 Personal history of malignant neoplasm of prostate; Z89.611 Acquired absence of right leg above knee; Z99.2 Dependence on renal dialysis
CPT/HCPCS: 36415; 71045; 80048; 80053; 82040; 82140; 82306; 82607; 82728; 82746; 82962; 83036; 83520; 83540; 83550; 83735; 84100; 84134; 84153; 84439; 84443; 84481; 85025; 86376; 86705; 86709; 86803; 87340; 92523; 92610; 94640; 97110; 97162; 97167; 97530; 97535; J1815; J3490; G0103